=== PATIENT | male | born 1945 | race Caucasian/White ===

== ENCOUNTER 2016-05-25 17:13 | Emergency (ER) | payer MEDICARE, OTHER ==
[~2016-05-25] VITALS: Ht 172.7 cm; Wt 70.0 kg
[~2016-05-25 17:13] MED LIST: ATOR20TA17 PO; ICNCLON PO; NIFE60TA12 PO; OMEP20CA16 PO; SEVE800T7 PO; VALS160T20 PO; [UNRECOGNIZED DRUG - CODE] PO
[2016-05-25 17:24] VITALS: Ht 172.7 cm; Wt 70.0 kg
[2016-05-25] MEDS ORDERED: IBUPROFEN 800 MG TAB PO ONE (17:30)
--- NOTE | 2016-05-25 18:21 | RADRPT ---
PROCEDURE: XR Knee. CLINICAL INDICATION: Fall TECHNIQUE: Three views of the right knee are available for review. COMPARISON: None available FINDINGS: There is a partially visualized intramedullary femoral trini. There is mild narrowing of the medial fe morotibial compartment with tiny marginal osteophyte formation. The lateral and patellofemoral comp artments are maintained. Decreased bone mineral density without radiographic evidence for fracture. No evidence for joint effusion. Atherosclerotic vascular calcifications are seen per IMPRESSION: 1. Decreased bone mineral density without radiographic evidence for fracture. 2. Partially visualized distal intramedullary femoral trini. 3. Mild medial femorotibial compartment arthrosis. 4. Vascular calcifications. RPTAT: AA .Carlito Richter MD, MD Date Time Electronically viewed and signed by .Carlito Richter MD, on 05/25/2016 18:21 .d/
--- NOTE | 2016-05-25 18:24 | RADRPT ---
PROCEDURE: XR Hand. CLINICAL INDICATION: Pain TECHNIQUE: Three views of the right hand were obtained. COMPARISON: No prior studies are available for comparison. FINDINGS: A pulse oximeter obscures the second distal phalanx. The remaining osseous structures are intact. No acute osseous abnormality is identified. Bone mineral density is decreased. There is mild narro wing and marginal productive change noted at the second through fifth DIP joints. Atherosclerotic v ascular calcifications are seen. Small radiopaque foreign bodies are noted at the radial soft tissue s of the second proximal phalanx and first metacarpal. IMPRESSION: 1. Partial obscuration of the second distal phalanx. 2. Decreased bone mineral density without radiographic evidence for fracture. 3. Small radiopaque foreign bodies are noted at the radial soft tissues of the second proximal phal anx and at the first metacarpal. 4. Vascular calcifications. 5. Findings of osteoarthritis, as above. RPTAT: AA .Carlito Richter MD, Date Time Electronically viewed and signed by .Carlito Richter MD, MD on 05/25/2016 18:23 .d/
--- NOTE | 2016-05-25 18:35 | ERD ---
ER Documentation Chief Complaint Date/Time DATE: 05/25/16 TIME: 18:35 Chief Complaint BIB RA GROUND LEVEL FALL C/O RT WRIST AND RT KNEE PAIN. HPI This is a 70-year-old male who presents to the emergency room after a ground- level fall. The patient states that he was walking in his foot got stuck in a hole on the sidewalk and he fell forward. He denies hitting his head or any loss of consciousness. He does state he fell on his right hand is having pain in the right hand in the right knee. The patient any numbness or tingling in his extremities and came to the ER today for evaluation ROS All systems reviewed and are negative except as per history of present illness. Medications Home Meds Discontinued Reported Medications Valsartan* (Diovan*) 160 Mg Tablet, 160 MG PO BID 11/24/11 Nifedipine* (Nifedical XL*) 60 Mg/Bottle Tab.osm.24, 60 MG PO BID 11/24/11 Omeprazole* (Omeprazole*) 20 Mg Capsule.dr, 20 MG PO DAILY 11/24/11 Atorvastatin (Lipitor) 20 Mg Tablet, 20 MG PO HS 11/24/11 Clonidine (Clonidine (Pediatric Compound)) 0.1 Mg/Ml Susp, 0.2 MG PO QID 11/24/11 Calcium Amino Acid Chelate (Calcium Amino Acid Chelate) 200 Mg Tablet, 667 MG PO TID 11/24/11 Sevelamer Carbonate* (Renvela*) 800 Mg Tablet, 800 MG PO TID 11/24/11 Allergies Allergies: Coded Allergies: No Known Allergy (Unverified , 05/25/16) PMhx/Soc History of Surgery: Yes (PREVIOUS DIALYSIS CATH INSERTION) Anesthesia Reaction: No Hx Neurological Disorder: No Hx Respiratory Disorders: No Hx Cardiac Disorders: Yes (HTN) Hx Psychiatric Problems: No Hx Miscellaneous Medical Probl: No Hx Alcohol Use: No Hx Substance Use: No Hx Tobacco Use: No Physical Exam Vitals Vital Signs Date Time Temp Pulse Resp B/P Pulse Ox O2 Delivery O2 Flow Rate FiO2 05/25/16 17:24 98.3 90 18 190/96 100 Physical Exam Const: No acute distress Head: Atraumatic Eyes: Normal Conjunctiva ENT: Normal External Ears, Nose and Mouth. Neck: Full range of motion..~ No meningismus. Resp: Clear to auscultation bilaterally Cardio: Regular rate and rhythm, no murmurs Abd: Soft, non tender, non distended. Normal bowel sounds Skin: No petechiae or rashes Back: No midline or flank tenderness Ext: No gross deformities, cap refill less than 2 seconds, no cyanosis, or edema Neur: Awake and alert Psych: Normal Mood and Affect Results 24 hrs Current Medications Medications (Trade) Dose Ordered Sig/Yolis Route PRN Reason Start Time Stop Time Status Last Admin Dose Admin Ibuprofen (Motrin) 800 mg ONCE ONCE PO 05/25/16 17:30 05/25/16 17:31 DC 05/25/16 17:47 Procedures/MDM X-ray Knee 3V Interpreted by me: Bones: No fracture Joints: No dislocation Foreign body: None\ X-ray Hand 3V interpreted by me: Scaphoid: Normal Bones: . Decreased bone mineral density without radiographic evidence for fracture. Small radiopaque foreign bodies are noted at the radial soft tissues of the second proximal phalanx and at the first metacarpal. Joints: No dislocation Foreign body: None This 70-year-old male presents to the ER for evaluation of right hand pain and right knee pain after falling forward while walking on the sidewalk. The patient had no loss of consciousness, no head injury. He did have minor pain over the palmar aspect of his hand. The patient was placed in a Velcro wrist splint. The patient will be discharged at this time with a prescription for Motrin for breakthrough pain. He is ambulatory in the ER without difficulty, in no acute distress, alert oriented to person place and time Departure Diagnosis: Primary Impression: Contusion of right hand Additional Impressions: Contusion of right knee Fall with no significant injury Condition: Stable KEVAN DECKER DO May 25, 2016 18:35
[2016-05-25] MEDS ORDERED: CLON0.2T5 PO (18:36)
[2016-05-25] MEDS ORDERED: CARV3.12 PO (18:37)
[2016-05-25] MEDS ORDERED: IBUP-1542 PO (18:39)
[2016-05-25 19:33] VITALS: BP 182/88; PULSE 102; RESP 18
[2016-05-25] MEDS ORDERED: HYDR-906 PO (19:43)
== END 2016-05-25 21:05 | disposition home or self-care (01) ==
LOC: E/R 17:13
DX: S60.221A Contusion of right hand, initial encounter (principal); S80.01XA Contusion of right knee, initial encounter; I10 Essential (primary) hypertension; W18.09XA Striking against other object with subsequent fall, initial encounter; Y92.9 Unspecified place or not applicable
CPT/HCPCS: 73562

== ENCOUNTER 2016-06-04 05:31 | Inpatient (IN) | payer MEDICARE, OTHER ==
[~2016-06-04] VITALS: Ht 177.8 cm; Wt 77.0 kg
[2016-06-04] VITALS (17 sets, daily range): BP systolic 132–199; BP diastolic 63–95; PULSE 75–96; RESP 16–81; Ht 177.8 cm; Wt 77.0 kg
[~2016-06-04 05:31] MED LIST changes: -ATOR20TA17 PO; +CARV3.12 PO; +CLON0.2T5 PO; +HYDR-906 PO; +IBUP-1542 PO; -ICNCLON PO; -NIFE60TA12 PO; -OMEP20CA16 PO; -SEVE800T7 PO; -VALS160T20 PO; -[UNRECOGNIZED DRUG - CODE] PO
[2016-06-04 06:08] LABS: ADD SCAN DIFF NO
[2016-06-04 06:14] LABS: ABNORMAL IP MESSAGE 1; BASOPHILS % 0.3 % (0.0-2.0); EOSINOPHILS # 0.2 10^3/ul (0.0-0.5); EOSINOPHILS % 1.5 % (0.0-7.0); HEMATOCRIT 33.5 % (42.0-52.0); HEMOGLOBIN 9.9 g/dl (14.0-18.0); LYMPHOCYTES # 0.5 10^3/ul (0.8-2.9); LYMPHOCYTES % 4.1 % (15.0-51.0); MEAN CORPUSCULAR HGB CONC 29.6 g/dl (32.0-37.0); MEAN CORPUSCULAR VOLUME 98.2 fl (82.0-101.0); MEAN PLATELET VOLUME 9.3 fl (7.4-10.4); MONOCYTE # 1.2 10^3/ul (0.3-0.9); MONOCYTES % 10.1 % (0.0-11.0); NEUTROPHIL # 9.5 10^3/ul (1.6-7.5); NEUTROPHILS % 83.5 % (39.0-77.0); PLATELET COUNT 240 10^3/UL (140-415); RED BLOOD COUNT 3.41 10^6/ul (4.70-6.10); RED CELL DISTRIBUTION WIDTH 16.6 % (11.5-14.5); WHITE BLOOD COUNT 11.3 10^3/ul (4.8-10.8)
--- NOTE | 2016-06-04 06:16 | ERA ---
ER Documentation Chief Complaint Date/Time DATE: 06/04/16 TIME: 06:11 Chief Complaint billateral leg swelling/pain 12/26 x 1 day. h/o CKD HPI Patient is a 70-year-old male with end-stage renal disease who presents with 2 hours of his legs feeling wobbly. Patient states that for the last 2 weeks he has had increased swelling in his legs and has had more difficulty walking. He woke up this morning and felt like his legs were going to give out. There is no unilateral weakness, no dizziness, no shortness of breath. Patient's last dialysis was yesterday. Patient also complains of right wrist pain due to an incidental fall 2 weeks ago. States that he has had 2 x-rays that did not show fracture. ROS All systems reviewed and are negative except as per history of present illness. Medications Home Meds Active Scripts Hydrocodone/Acetaminophen ([place] 5-325 Tablet) 1 Each Tablet, 1 TAB PO Q6H Y for PAIN, #5 TAB Prov:KEVAN DECKER DO 05/25/16 Ibuprofen* (Motrin*) 600 Mg Tab, 600 MG PO Q8, #30 TAB Prov:KEVAN DECKER DO 05/25/16 Reported Medications Carvedilol* (Coreg*) 3.125 Mg Tablet, 3.125 MG PO BID, #60 TAB 05/25/16 Clonidine Hcl* (Clonidine Hcl*) 0.2 Mg Tablet, 0.4 MG PO QID, TAB 05/25/16 Allergies Allergies: Coded Allergies: No Known Allergy (Unverified , 05/25/16) PMhx/Soc Past medical history: End-stage renal disease, unknown arrhythmia Past surgical history: Appendectomy, cholecystectomy History of Surgery: Yes (PREVIOUS DIALYSIS CATH INSERTION, OPEN HEART) Anesthesia Reaction: No Hx Neurological Disorder: No Hx Respiratory Disorders: No Hx Cardiac Disorders: Yes (HTN, HIGH CHOLESTEROL) Hx Psychiatric Problems: No Hx Miscellaneous Medical Probl: Yes (ESRD ON HD) Hx Alcohol Use: No Hx Substance Use: No Hx Tobacco Use: No Smoking Status: Never smoker FmHx No personal or family history of diabetes or heart disease. Family History: No coronary disease, No diabetes Physical Exam Vitals Vital Signs Date Time Temp Pulse Resp B/P Pulse Ox O2 Delivery O2 Flow Rate FiO2 06/04/16 07:00 90 16 181/78 92 Nasal Cannula 2.0 06/04/16 05:36 98.1 93 149/83 90 Physical Exam Const: Alert, oriented, no acute distress Head: Atraumatic Eyes: Normal Conjunctiva ENT: Normal External Ears, Nose and Mouth. Neck: Full range of motion. Positive for JVD. no meningismus. Resp: Trace bibasilar rales, diminished breath sounds at right base, no wheezes or rhonchi Cardio: Regular rate and rhythm, no murmurs Abd: Soft, non tender, non distended. Normal bowel sounds Skin: No petechiae or rashes Back: No midline or flank tenderness Ext: No cyanosis, 2+ pitting edema bilateral ankles and shins, symmetric Neur: Awake and alert, cranial nerves II through XII intact bilaterally no focal weakness in 4 extremities Psych: Normal Mood and Affect Result Diagram: 06/04/1658 06/04/1658 Results 24 hrs Laboratory Tests Test 06/04/16 05:58 Anion Gap 23 B-Type Natriuretic Peptide 88310WI/ML Basophils # 0.010^3/ul Basophils % 0.3% Blood Urea Nitrogen 87mg/dl Calcium Level 8.1mg/dl Carbon Dioxide Level 31mmol/L Chloride Level 98mmol/L Creatinine 7.78mg/dl Eosinophils # 0.210^3/ul Eosinophils % 1.5% Glucose Level 136mg/dl Hematocrit 33.5% Hemoglobin 9.9g/dl Lymphocytes # 0.510^3/ul Lymphocytes % 4.1% Mean Corpuscular Hemoglobin 29.0pg Mean Corpuscular Hemoglobin Concent 29.6g/dl Mean Corpuscular Volume 98.2fl Mean Platelet Volume 9.3fl Monocytes # 1.210^3/ul Monocytes % 10.1% Neutrophils # 9.510^3/ul Neutrophils % 83.5% Nucleated Red Blood Cells # 0.010^3/ul Nucleated Red Blood Cells % 0.0/100WBC Platelet Count 98582^3/UL Potassium Level 4.7mmol/L Red Blood Count 3.4110^6/ul Red Cell Distribution Width 16.6% Sodium Level 147mmol/L Troponin I 0.101ng/ml White Blood Count 11.310^3/ul Procedures/MDM EKG: Time 613, rate 90, normal sinus rhythm with occasional PVCs, left atrial enlargement, left ventricular hypertrophy, normal axis, borderline QT interval, no ischemic ST-T wave changes. CXR: IMPRESSION: 1. Right internal jugular tunneled hemodialysis catheter the tip at the cavoatrial junction region. 2. Cardiomegaly. 3. Calcified thoracic aorta. 4. Pulmonary vascular congestion. 5. Moderate right pleural effusion with associate compressive atelectasis. MDM: Patient is a 70-year-old male with history of end-stage renal disease who presents with increased leg edema, and found to have O2 sat of 90% on room air. Patient reports going to dialysis 2 days ago, but according to his primary physician the patient has issues with confusion and missed recent dialysis. No significant dyspnea, no chest pain. Chest x-ray and BNP are suggestive of volume overload. Patient is having difficulty ambulating due to leg edema. Will admit to observation status for additional dialysis and further workup is necessary. Discussed with Dr. Kahn who will admit. Departure Diagnosis: Primary Impression: Volume overload Additional Impressions: ESRD (end stage renal disease) Pleural effusion Condition: MARLNIE Camacho Jun 04, 2016 06:15 Primary Impression: Volume overload Additional Impression: ESRD (end stage renal disease) Condition: MARLINE Camacho Jun 04, 2016 06:15
[2016-06-04 06:21] LABS: POTASSIUM 4.7 mmol/L (3.5-5.1)
[2016-06-04 06:24] LABS: CREATININE 7.78 mg/dl (0.61-1.24)
[2016-06-04 06:25] LABS: CALCIUM 8.1 mg/dl (8.4-10.2)
[2016-06-04 06:36] LABS: TROPONIN-I 0.101 ng/ml (0.00-0.12)
--- NOTE | 2016-06-04 07:48 | RADRPT ---
PROCEDURE: CHEST - 1 VIEW CLINICAL INDICATION: 70-year-old male with chest pain. TECHNIQUE: A single frontal AP portable view of the chest was performed. The images were reviewed on a PACS workstation. COMPARISON: Chest x-ray November 24, 2011. FINDINGS: There is a right internal jugular tunneled hemodialysis catheter the tip at the cavoatrial junction region. The cardiomediastinal silhouette is enlarged. The thoracic aortic arch is calcified. Ther e is mild pulmonary vascular congestion. There is moderate right pleural effusion with associate co mpressive atelectasis. There is no evidence for pneumothorax. The osseous structures are intact. IMPRESSION: 1. Right internal jugular tunneled hemodialysis catheter the tip at the cavoatrial junction region. 2. Cardiomegaly. 3. Calcified thoracic aorta. 4. Pulmonary vascular congestion. 5. Moderate right pleural effusion with associate compressive atelectasis. .Roberto Ngo MD, MD Date Time Electronically viewed and signed by .Roberto Ngo MD, MD on 06/04/2016 07:47 .M/
[2016-06-04] MEDS ORDERED: ONDANSETRON 4 MG INJ IV PRN ×2 (08:00→12:00)
[2016-06-04] MEDS ORDERED: ACETAMINOPHEN 325 MG TAB PO PRN (08:00)
[2016-06-04] MEDS ORDERED: MELA1TAB9 PO (09:43)
[2016-06-04] MEDS ORDERED: NACL 0.9% 3 ML SYG IV SCH (12:00)
[2016-06-04] MEDS ORDERED: HEPARIN 1000 UNITS/ML 10 ML INJ CATHETER ONE (12:00)
[2016-06-04] MEDS ORDERED: ZOLPIDEM 5 MG TAB PO PRN (12:00)
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
[2016-06-04] MEDS: HYDROCODONE/APAP (5/325) TAB PO PRN (17:35)
[2016-06-04] MEDS ORDERED: NON-FORMULARY/PATIENT OWN MED (Melatonin-Pyridoxine Hcl (Melatonin) 1 TAB) PO SCH (21:00)
[2016-06-05] VITALS (17 sets, daily range): BP systolic 123–174; BP diastolic 63–81; PULSE 69–83; RESP 16–18
[2016-06-05] MEDS: HYDROCODONE/APAP (5/325) TAB PO PRN ×2 (04:51→12:17)
[2016-06-05 07:30] LABS: ADD SCAN DIFF NO
[2016-06-05 07:44] LABS: ABNORMAL IP MESSAGE 1; BASOPHILS % 0.4 % (0.0-2.0); EOSINOPHILS # 0.2 10^3/ul (0.0-0.5); EOSINOPHILS % 2.9 % (0.0-7.0); HEMATOCRIT 30.8 % (42.0-52.0); LYMPHOCYTES # 0.5 10^3/ul (0.8-2.9); LYMPHOCYTES % 5.9 % (15.0-51.0); MEAN CORPUSCULAR HEMOGLOBIN 28.6 pg (29.0-33.0); MEAN CORPUSCULAR HGB CONC 29.2 g/dl (32.0-37.0); MEAN CORPUSCULAR VOLUME 97.8 fl (82.0-101.0); MEAN PLATELET VOLUME 9.8 fl (7.4-10.4); MONOCYTE # 1.2 10^3/ul (0.3-0.9); MONOCYTES % 14.3 % (0.0-11.0); NEUTROPHIL # 6.2 10^3/ul (1.6-7.5); NEUTROPHILS % 75.9 % (39.0-77.0); PLATELET COUNT 225 10^3/UL (140-415); RED BLOOD COUNT 3.15 10^6/ul (4.70-6.10); RED CELL DISTRIBUTION WIDTH 16.1 % (11.5-14.5); WHITE BLOOD COUNT 8.2 10^3/ul (4.8-10.8)
[2016-06-05 07:47] LABS: ALBUMIN 3.3 g/dl (3.3-4.9); POTASSIUM 4.3 mmol/L (3.5-5.1)
--- NOTE | 2016-06-05 07:48 | RADRPT ---
PROCEDURE: XR Chest. CLINICAL INDICATION: Shortness of breath. TECHNIQUE: Single frontal view. COMPARISON: 06/04/2016. FINDINGS: The tunneled right internal jugular vein dialysis catheter remains in position with the tip in the l ower superior vena cava. Mild pulmonary edema is unchanged. There is a moderate right pleural effu javon, larger than seen previously with worse appearance of right basilar atelectasis. There is no l eft pleural effusion. The heart is enlarged. There is calcification in the aorta consistent with atherosclerosis. There is no pneumothorax. IMPRESSION: 1. Larger right pleural effusion and worse appearance of the right lung base. 2. No other change from 06/04/2016. RPTAT: QQ .Anibal Rosado MD, MD Date Time Electronically viewed and signed by .Anibal Rosado MD, MD on 06/05/2016 07:47 .R/
[2016-06-05 07:49] LABS: CREATININE 7.16 mg/dl (0.61-1.24)
[2016-06-05 07:50] LABS: ALBUMIN/GLOBULIN RATIO 0.75; BILIRUBIN,INDIRECT 0.1 mg/dl (0-1.1); BILIRUBIN,TOTAL 0.1 mg/dl (0.2-1.3); CALCIUM 8.1 mg/dl (8.4-10.2); MAGNESIUM 1.9 mg/dl (1.7-2.5); PHOSPHORUS 7.1 mg/dl (2.5-4.9); TOTAL PROTEIN 7.7 g/dl (6.1-8.1)
[2016-06-05 08:07] LABS: T3 UPTAKE 44.7 % (23.5-40.5)
--- NOTE | 2016-06-05 11:34 | PN ---
DATE: 06/05/2016 SUBJECTIVE: The patient is stable, no acute events overnight. The patient had hemodialysis yesterd ay, tolerated well. Patient is complaining of general weakness, no other events noted. OBJECTIVE: VITAL SIGNS: Blood pressure 150/69, respiration 18, pulse 73, temperature 98.0. HEENT: Head is normocephalic. Pupils are reactive to light. NECK: Supple. HEART: Regular rate. LUNGS: Show diminished breath sounds at base, left greater than right. ABDOMEN: Soft, nontender to palpation. EXTREMITIES: Negative for clubbing, cyanosis, no edema. DERMATOLOGIC: Positive excoriations upper and lower extremities and hands. NEUROLOGIC: No focal deficits. MUSCULOSKELETAL: No joint effusions. LABORATORY DATA: Shows sodium 143, potassium 4.3, chloride 98, BUN 70, creatinine 7.16 phosphorus 7 .1. White count 8.2, hemoglobin 9.0, hematocrit 30.8, platelet count 225. IMAGING: The patient's chest x-ray was reviewed, shows right pleural effusion, larger on the right. ASSESSMENT AND PLAN: This is a 70-year-old male who presents with: 1. End-stage renal disease. The patient has been noncompliant with hemodialysis. This patient had hemodialysis yesterday, tolerated well, plan for dialysis again today for solute clearance and volu me removal. Will dialyze for 3 hours, 3K bath, calcium 2.5, and ultrafiltrate as tolerated. 2. Volume overload. The patient has noted pleural effusion and pulmonary congestion. Continue ult rafiltration with dialysis. 3. Right-sided pleural effusion, etiology is likely secondary to volume overload, end-stage renal d isease. Other possibilities include a parapneumonic effusion as also a consideration. Plan at this point is to get a pulmonary consult for evaluation to see if thoracentesis is appropriate. Will co ntinue dialysis for ultrafiltration and monitor closely. 4. Anemia of end-stage renal disease. Monitor hemoglobin and hematocrit levels. Will continue Epo gen. 5. Mineral bone disorder. Will monitor calcium and phosphorus levels. Patient's phosphorus levels are markedly elevated, will start phosphate binders, Renagel 800 mg t.i.d. with meals. 6. History of coronary artery disease. Continue medical management. 7. History of schizoaffective syndrome. Will continue to monitor. Continue current medical manage ment. 8. Hypertension. Etiology in part due to increased intravascular volume. Will continue ultrafiltr ation dialysis. Continue current blood pressure regimen. 9. Rule out scabies. The patient has noted excoriations on his upper and lower extremities. Will get a skin scraping will consider empiric treatment with Elimite. 10. History of medical noncompliance. 11. Gastrointestinal and deep vein thrombosis prophylaxis. The patient will be placed on PPI, sequ ential leg squeezers, subcutaneous heparin. Please note I spent 25 minutes of face to face time with the patient, discussing code status. The p atient is FULL CODE. Dictated By: CHELSI ASIF DO NR/NTS Conf#: [id number] DID#: [id number]
[2016-06-05] MEDS: SEVELAMER 800 MG TAB PO SCH ×2 (12:44→17:20)
--- NOTE | 2016-06-05 12:44 | CONS ---
Date/Time of Note Date/Time of Note DATE: 06/05/16 TIME: 12:38 Assessment/Plan Assessment/Plan Additional Assessment/Plan Chest x-ray was reviewed from yesterday as well as today which is showing a small right pleural effusion which is partially loculated. Assessment recommendations; 1. Patient admitted for lower extremity edema with complete interval resolution of ventricle into dialysis session with improvement in knee pain as well. 2. Likely chronic appearing right sided pleural changes. 3. End-stage renal disease on hemodialysis. 4. Patient from a respiratory standpoint is completely asymptomatic Continue current treatment. At this time I would not recommend any intervention regarding the small right pleural effusion. Consultation Date/Type/Reason Admit Date/Time Jun 04, 2016 at 07:40 Date of Consultation: Jun 05, 2016 Type of Consultation: Pulmonary Reason for Consultation Pulmonary consultation obtained for evaluation of possible right pleural effusion. Next History presenting any; patient is a 70-year-old white male who came into the hospital yesterday with complaints of bilateral knee pain as well as lower extremity swelling. After undergoing 2 dialysis sessions there is complete resolution of edema. Patient's knee pain also has improved significantly patient denies any shortness of breath, any chest pain. Any fever, chills. By the time I saw him patient is completely awake alert getting hemodialysis at bedside and also eating his lunch. Past medical history; 1. End-stage renal disease, on hemodialysis for the last 7 years. 2. History of right pleural effusion, according to him no thoracentesis was ever done. 3. History of hypertension. Next 4. History of hyperlipidemia. 5. Patient denies any history of any surgeries, any coronary artery disease. Medications; were reviewed. Next Allergies; are none. Social history; patient has remote history of smoking. He quit 30 years ago. Most of alcohol or drug abuse. Family history; he has 1 son, patient is single. 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 General exam; elderly male, currently in no distress awake and alert. Social History Smoking Status: Never smoker Exam/Review of Systems Vital Signs Vitals Vital Signs Date Time Temp Pulse Resp B/P Pulse Ox O2 Delivery O2 Flow Rate FiO2 06/05/16 12:00 74 06/05/16 10:40 17 06/05/16 07:39 98.0 150/69 95 06/04/16 17:11 Room Air 06/04/16 07:00 2.0 Intake and Output 06/04/16 06/04/16 06/05/16 15:00 23:00 07:00 Intake Total 1020 ml 120 ml Output Total 3500 ml Balance -2480 ml 120 ml Exam HEENT exam is; supple neck, no JVD. No lymphadenopathy. Midline trachea. No thyromegaly. Patient is edentulous and wears dentures. Pupils are midsize and reactive to light. Extraocular movements are intact. No thyromegaly. Chest examination; clear to auscultation with very minimal if any decreased breath on the right lower lobe. S1-S2 audible, no murmurs. Regular rhythm. There is a hemodialysis catheter in the right subclavian area. Abdomen examination; soft, nontender. No organomegaly. Bowel sounds audible. Extremity examination of Nick no peripheral edema. HOSPICE PATIENT CARE SECRETARY examination; cranial nerves are intact, no focal deficit. Results Result Diagram: 06/05/16 0603 06/05/16 0603 Results 24 hrs Laboratory Tests Test 06/05/16 06:03 Alanine Aminotransferase (ALT/SGPT) 26 Albumin 3.3 Albumin/Globulin Ratio 0.75 Alkaline Phosphatase 149 H Anion Gap 21 H Aspartate Amino Transf (AST/SGOT) 32 Basophils # 0.0 Basophils % 0.4 Blood Urea Nitrogen 70 H Calcium Level 8.1 L Carbon Dioxide Level 28 Chloride Level 98 Creatinine 7.16 H Direct Bilirubin 0.00 Eosinophils # 0.2 Eosinophils % 2.9 Free Thyroxine Index 2.68 Globulin 4.40 H Glucose Level 85 # Hematocrit 30.8 L Hemoglobin 9.0 L Indirect Bilirubin 0.1 Lymphocytes # 0.5 L Lymphocytes % 5.9 L Magnesium Level 1.9 Mean Corpuscular Hemoglobin 28.6 L Mean Corpuscular Hemoglobin Concent 29.2 L Mean Corpuscular Volume 97.8 Mean Platelet Volume 9.8 Monocytes # 1.2 H Monocytes % 14.3 H Neutrophils # 6.2 Neutrophils % 75.9 Nucleated Red Blood Cells # 0.0 Nucleated Red Blood Cells % 0.0 Phosphorus Level 7.1 H Platelet Count 225 Potassium Level 4.3 Red Blood Count 3.15 L Red Cell Distribution Width 16.1 H Sodium Level 143 Thyroxine (T4) 6.0 Total Bilirubin 0.1 L Total Protein 7.7 Triiodothyronine (T3) Uptake 44.7 H White Blood Count 8.2 # Medications Medications Current Medications Ondansetron HCl (Zofran Inj) 4 mg Q6H PRN IV NAUSEA AND/OR VOMITING; Start at 12:00 Zolpidem Tartrate (Ambien) 5 mg QHS PRN PO SLEEP; Start 06/04/16 at 12:00 Carvedilol (Coreg) 3.125 mg BID PO Last administered on 06/04/16 20:56; Admin Dose 3.125 MG; Start 06/04/16 at 21:00 Clonidine (Catapres) 0.4 mg QID PO Last administered on 06/04/16 20:56; Admin Dose 0.4 MG; Start 06/04/16 at 13:00 Acetaminophen/ Hydrocodone Bitart ([place] (5/325)) 1 tab Q6H PRN PO PAIN Last administered on 06/05/16 12:17; Admin Dose 1 TAB; Start 06/04/16 at 12:00 Pantoprazole (Protonix Tab) 40 mg DAILY@06 PO ; Start 06/06/16 at 06:00 LUIS LAWS 20, 2017 12:44
[2016-06-05] MEDS ORDERED: HEPARIN 1000 UNITS/ML 10 ML INJ CATHETER SCH (13:30)
[2016-06-05] MEDS: EPOETIN 10000 UNITS/1 ML INJ (ESRD) SC SCH (17:24)
--- NOTE | 2016-06-05 18:10 | RADRPT ---
Echocardiogram Report Patient Name: PEPPER SO Gender: Male Date: 1945 Study Date: 04-Jun-2016 Supervisor Of Operations: NICOL Location: I Height(Cm): 178 Weight(Kg): 77 BSA: 1.95 Ref. Physician: SARTHAK PATEL Quality: Adequate Procedures: Transthoracic echocardiogram with complete 2D, M-Mode, and Doppler examination. Indications: Congestive Heart Failure. 2D/M Mode Doppler Measurement Value Normal Ranges Measurement Value Normal Ranges AoR Diam MM 3.8 cm JAMES Vmax 1.1 cm2 LVIDd 2D 5.3 3.5 - 5.6 cm JAMES VTI 1.1 cm2 LVIDs 2D 3.9 2.1 - 4.1 cm AV Mean Jose 2.0 m/sec LVPWd 2D 1.5 0.6 - 1.1 cm AV Mean PG 19.3 mmHg IVSd 2D 1.6 0.6 - 1.1 cm AV Peak Jose 3.0 m/sec EDV 2D 136.3 cm3 AV Peak PG 36.5 mmHg ESV 2D 58.2 cm3 AV VTI 55.3 cm LA Dimen 2D 4.2 2.3 - 4.0 cm AI Peak PG 79.4 mmHg LVOT Diam 2.0 cm AI Peak Jose 4.5 m/sec AI PHT 456.6 msec LVOT Mean Jose 0.7 m/sec LVOT Mean PG 2.1 mmHg LVOT Peak Jose 1.0 m/sec LVOT Peak PG 4.1 mmHg LVOT VTI 19.6 cm MV E Peak Jose 1.2 m/sec MV A Peak Jose 0.7 m/sec MV E/A 1.7 MV Decel Time 162 msec MV Decel [place] 7 MV E/A 1.7 TR Peak Jose 3.6 m/sec TR Peak PG 52.6 mmHg PV Peak Jose 1.1 m/sec PV Peak PG 5.0 mmHg RVSP 72.6 mmHg Findings Left Ventricle: Normal left ventricular cavity size. Mild to moderate concentric left ventricular hypertrophy. Moderate left ventricular systolic dysfunction. Ejection fraction is visually estimated at 45 %. Tissue Doppler/Mitral Doppler indices are consistent with pseudonormalization with mildly elevated left atrial pressure (Stage II diastolic dysfunction). E/E`=12. Right Ventricle: Normal right ventricular size. Left Atrium: There is severe enlargement of left atrium, appreciated best by LA volume index. LA Volume Index=51. Right Atrium: There is moderate enlargement of right atrium. Atrial Septum: Normal atrial septum. Mitral Valve: Mitral valve leaflets appear mildly thickened. Mild mitral annular calcification. Mild mitral valve regurgitation. Aortic Valve: Moderate aortic stenosis. Aortic valve Max velocity 3.00 m/sec. Max PG 37.00 mmHg. Mean PG 19.00 mmHg. Aortic valve area 1.20 cm2. Aortic cusps appear moderately calcified. Mild to moderate aortic valve regurgitation. Tricuspid Valve: Normal appearance of the tricuspid valve. Estimated peak PA systolic pressure 73 mmHg. There is mild to moderate tricuspid regurgitation. Pulmonic Valve: Normal pulmonic valve appearance. No evidence of pulmonic regurgitation. Pericardium: Normal pericardium with no significant pericardial effusion. Right pleural effusion seen. Aorta: Normal aortic root. IVC: Dilated IVC without respiratory collapse consistent with elevated right atrial pressure. Pulmonary Artery: Normal pulmonary artery size. Conclusions 1.Normal left ventricular cavity size. Mild to moderate concentric left ventricular hypertrophy. Moderate left ventricular systolic dysfunction. Ejection fraction is visually estimated at 45 %. Tissue Doppler/Mitral Doppler indices are consistent with pseudonormalization with mildly elevated left atrial pressure (Stage II diastolic dysfunction). E/E`=12. 2.There is severe enlargement of left atrium, appreciated best by LA volume index. LA Volume Index=51. 3.There is moderate enlargement of right atrium. 4.Mitral valve leaflets appear mildly thickened. Mild mitral annular calcification. Mild mitral valve regurgitation. 5.Moderate aortic stenosis. Aortic valve Max velocity 3.00 m/sec. Max PG 37.00 mmHg. Mean PG 19.00 mmHg. Aortic valve area 1.20 cm2. Aortic cusps appear moderately calcified. Mild to moderate aortic valve regurgitation. 6.Normal appearance of the tricuspid valve. Estimated peak PA systolic pressure 73 mmHg. There is mild to moderate tricuspid regurgitation. 7.Dilated IVC without respiratory collapse consistent with elevated right atrial pressure. Electronically Signed By: Leonel Munoz 05-Jun-2016 18:09:07 -0700 Patient Name: PEPPER SO Study Date: 04-Jun-2016 [id number]
[2016-06-06] VITALS (19 sets, daily range): BP systolic 102–165; BP diastolic 47–71; PULSE 63–75; RESP 16–20
[2016-06-06] MEDS: HYDROCODONE/APAP (5/325) TAB PO PRN ×2 (04:39→20:35)
[2016-06-06] MEDS: PANTOPRAZOLE (EC) 40 MG TAB PO SCH (04:39)
[2016-06-06 07:32] LABS: ADD SCAN DIFF NO
[2016-06-06 07:54] LABS: ABNORMAL IP MESSAGE 1; BASOPHILS % 0.4 % (0.0-2.0); EOSINOPHILS # 0.3 10^3/ul (0.0-0.5); EOSINOPHILS % 3.1 % (0.0-7.0); HEMOGLOBIN 9.3 g/dl (14.0-18.0); LYMPHOCYTES # 0.6 10^3/ul (0.8-2.9); LYMPHOCYTES % 5.5 % (15.0-51.0); MEAN CORPUSCULAR VOLUME 96.6 fl (82.0-101.0); MEAN PLATELET VOLUME 9.5 fl (7.4-10.4); MONOCYTE # 1.5 10^3/ul (0.3-0.9); MONOCYTES % 14.1 % (0.0-11.0); NEUTROPHIL # 7.9 10^3/ul (1.6-7.5); NEUTROPHILS % 76.4 % (39.0-77.0); PLATELET COUNT 242 10^3/UL (140-415); RED BLOOD COUNT 3.21 10^6/ul (4.70-6.10); RED CELL DISTRIBUTION WIDTH 15.5 % (11.5-14.5); WHITE BLOOD COUNT 10.4 10^3/ul (4.8-10.8)
[2016-06-06 07:55] LABS: POTASSIUM 4.2 mmol/L (3.5-5.1)
[2016-06-06 07:58] LABS: CREATININE 6.5 mg/dl (0.61-1.24)
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
[2016-06-06 07:59] LABS: CALCIUM 8.1 mg/dl (8.4-10.2); MAGNESIUM 2.1 mg/dl (1.7-2.5); PHOSPHORUS 7.7 mg/dl (2.5-4.9)
[2016-06-06] MEDS: SEVELAMER 800 MG TAB PO SCH ×3 (08:25→17:45)
--- NOTE | 2016-06-06 09:41 | PN ---
DATE: 06/06/2016 SUBJECTIVE: The patient is complaining of some right elbow pain, forearm pain which she describes a s having fracture approximately 1 month ago. The patient had hemodialysis yesterday, tolerated well . The patient is in no acute distress. No longer complaining of shortness of breath. No other lizzie nts noted. OBJECTIVE: VITAL SIGNS: Blood pressure is 165/71, respiration 18, pulse 67, temperature 98.0. HEENT: Head is normocephalic. NECK: Supple. HEART: Regular rate. LUNGS: Show diminished breath sounds at base. ABDOMEN: Soft, nontender to palpation, no rebound or guarding. EXTREMITIES: Negative for clubbing, cyanosis. No edema. DERMATOLOGIC: Noted excoriations. No change. NEUROLOGIC: No change in exam. MEDICATIONS: The patient's medications have been reviewed. LABORATORY DATA: Has been reviewed. No new labs. ASSESSMENT AND PLAN: 1. End-stage renal disease. The patient is on dialysis Sunday, , Sunday. Plan for hemo dialysis today for 3 hours, 3K bath, calcium 2.5, ultrafiltrate as tolerated. 2. Volume overload. The patient was noted to have pleural effusion and pulmonary congestion. We w ill continue hemodialysis. Continue ultrafiltration. 3. Right-sided pleural effusion, etiology is likely secondary to congestive heart failure. 4. End-stage renal disease. At this point, will continue hemodialysis. Appreciate pulmonary's eval uation and plan for thoracentesis at this time. Will continue dialysis. 5. Anemia of end-stage renal disease. Monitor H and H levels. Continue Epogen. 6. Right forearm pain with questionable recent history of fracture. Will check an x-ray of the rig forearm monitor, continue pain control. 7. Mineral bone disorder. Continue to monitor calcium and phosphorus levels. Continue phosphate b inders. 8. History of coronary artery disease. Continue medical management. 9. History of schizoaffective syndrome. Continue to monitor. 10. Hypertension. Continue current blood pressure regimen. Continue ultrafiltration dialysis. 11. Lower extremities excoriations. Will continue to monitor. Per patient, he was recently evalua alix for scabies and was negative. Continue to monitor. 12. History of medical noncompliance. 13. Gastrointestinal and deep venous thrombosis prophylaxis. Continue PPIs and sequential leg sque ezers. 14. General debility. Continue PT, OT. Dictated By: CHELSI AGGARWAL/ED Conf#: [id number] DID#: [id number]
--- NOTE | 2016-06-06 09:41 | RADRPT ---
PROCEDURE: XR Right Forearm. CLINICAL INDICATION: Trauma. Right forearm pain. TECHNIQUE: AP and lateral views of the right forearm were obtained. COMPARISON: No prior studies are available for comparison. FINDINGS: There is no fracture or dislocation. Vascular calcifications are present consistent with atherosclerosis. Articular surfaces are intact. There is no lytic or blastic lesion. Surgical clips are present in the antecubital fossa region. IMPRESSION: 1. Atherosclerosis. 2. Surgical clips in the antecubital fossa region. 3. Otherwise unremarkable images of the right forearm. RPTAT: QQ .Anibal Rosado MD, MD Date Time Electronically viewed and signed by .Anibal Rosado MD, on 06/06/2016 09:40 .R/
[2016-06-06] MEDS ORDERED: MELATONIN 10 MG PO PRN (23:30)
[2016-06-07] VITALS (13 sets, daily range): BP systolic 122–152; BP diastolic 61–91; PULSE 63–75; RESP 16–20
[2016-06-07] MEDS: PANTOPRAZOLE (EC) 40 MG TAB PO SCH (05:28)
[2016-06-07] MEDS: HYDROCODONE/APAP (5/325) TAB PO PRN ×4 (05:29→21:11)
[2016-06-07 07:26] LABS: ADD SCAN DIFF NO
[2016-06-07 07:34] LABS: BASOPHIL # 0.1 10^3/ul (0.0-0.1); BASOPHILS % 0.5 % (0.0-2.0); EOSINOPHILS # 0.3 10^3/ul (0.0-0.5); EOSINOPHILS % 3.4 % (0.0-7.0); HEMATOCRIT 33.8 % (42.0-52.0); LYMPHOCYTES # 0.7 10^3/ul (0.8-2.9); LYMPHOCYTES % 6.8 % (15.0-51.0); MEAN CORPUSCULAR HEMOGLOBIN 28.6 pg (29.0-33.0); MEAN CORPUSCULAR HGB CONC 29.6 g/dl (32.0-37.0); MEAN CORPUSCULAR VOLUME 96.6 fl (82.0-101.0); MONOCYTE # 1.5 10^3/ul (0.3-0.9); MONOCYTES % 15.2 % (0.0-11.0); NEUTROPHIL # 7.1 10^3/ul (1.6-7.5); NEUTROPHILS % 73.4 % (39.0-77.0); PLATELET COUNT 249 10^3/UL (140-415); RED CELL DISTRIBUTION WIDTH 15.3 % (11.5-14.5); WHITE BLOOD COUNT 9.7 10^3/ul (4.8-10.8)
--- NOTE | 2016-06-07 07:40 | PN ---
DATE: 06/06/2016 CARDIOLOGY FOLLOWUP SUBJECTIVE: The patient ____ no chest pain or pressure. Complains of feeling horrible because he h as some ankle pain and knee pain. No chest pain or pressure, no shortness of breath. MEDICATIONS: Reviewed. PHYSICAL EXAMINATION: VITAL SIGNS: Temperature 98.1, heart rate of 68, blood pressure 125/____, respiration rate of 20, s aturating 96%. HEENT: Normocephalic, atraumatic. Pupils are equal. CARDIOVASCULAR: Regular rate and rhythm. PULMONARY: With no wheezes heard. Minimal rhonchi at the base. GASTROINTESTINAL: Soft, ____. EXTREMITIES: ____ edema. NEUROLOGIC: He is awake and alert, oriented x3. PSYCHIATRIC: Appears to be anxious with labile mood. LABORATORY: WBC of 10.4, hemoglobin 9.____, platelets 242. Sodium 141, potassium 4.2, BUN of ____, creatinine 36.5, glucose of 87. ASSESSMENT AND PLAN: 1. Congestive heart failure/fluid overload. 2. Renal failure, on hemodialysis. 3. Pleural effusion. 4. History of pulmonary hypertension. 5. Possible history of coronary artery disease. 6. ____ affective disorder. 7. Hypertension. RECOMMENDATIONS: Dialysis will be continued and managed as per renal. Continue with the Coreg at t he current dose. I would decrease the clonidine dose. Monitor on telemetry. Dictated By: SHABNAM MENG/ED Conf#: [id number] DID#: [id number] CC: CHELSI ASIF DO;*EndCC*
[2016-06-07 07:46] LABS: POTASSIUM 4.4 mmol/L (3.5-5.1)
[2016-06-07 07:49] LABS: CREATININE 6.81 mg/dl (0.61-1.24)
[2016-06-07 07:50] LABS: CALCIUM 8.6 mg/dl (8.4-10.2); MAGNESIUM 2.1 mg/dl (1.7-2.5); PHOSPHORUS 7.5 mg/dl (2.5-4.9)
--- NOTE | 2016-06-07 08:15 | RADRPT ---
Vent Rate: 73 bpm RR Interval: 0 msec MO Interval: 138 msec QRS Duration: 112 msec QT Interval: 450 msec QTC Interval: 495 msec P-R-T [place]: 32 - 3 - 71 degrees Sinus rhythm with occasional premature ventricular complexes Minimal voltage criteria for LVH, may be normal variant Prolonged QT Abnormal ECG Electronically Signed By: Arcadio Bryant [id number]
[2016-06-07] MEDS: SEVELAMER 800 MG TAB PO SCH ×3 (08:35→17:49)
--- NOTE | 2016-06-07 10:50 | PN ---
DATE: 06/07/2016 CARDIOLOGY FOLLOWUP SUBJECTIVE: The patient with no chest pain or pressure. No palpitation. No shortness of breath to me. He does complain of feeling horrible because he has right wrist pain. MEDICATIONS: Reviewed as per medication reconciliation, personally reviewed. PHYSICAL EXAMINATION: VITAL SIGNS: Temperature 97.8, heart rate of 63, blood pressure 122/63, respiratory rate of 20, sat urating 96%. HEENT: Normocephalic, atraumatic. Pupils equal and round. CARDIOVASCULAR: Regular rate and rhythm, systolic murmur. PULMONARY: With no wheezes or rhonchi. GASTROINTESTINAL: Soft, nontender. No rebound or guarding. EXTREMITIES: No significant lower extremity edema. Right wrist with edema and tenderness to palpat ion: PSYCHIATRIC: Appears to be anxious, but stable. NEUROLOGIC: Awake and alert x3. LABORATORY DATA: WBC of 9.7, hemoglobin 10, platelets 249. Sodium 142, potassium 4.4, BUN 62, crea tinine 6.8, glucose of 95. Forearm x-ray showed surgical clips in the AC fossa region, otherwise unremarkable images of the rig ht forearm. ASSESSMENT AND PLAN: 1. Congestive heart failure secondary to fluid overload, currently improved. 2. Renal failure on dialysis. 3. Pleural effusion secondary to above. 4. History of pulmonary hypertension. 5. Questionable history of coronary artery disease. 6. Schizoaffective disorder. 7. History of hypertension, currently under control. RECOMMENDATIONS: Dialysis as per renal to be continued. Coreg will be continued at the current dos e. GI prophylaxis will be continued. Dictated By: SHABNAM MENG/ED Conf#: [id number] DID#: [id number] CC: CHELSI ASIF DO;*EndCC*
--- NOTE | 2016-06-07 11:17 | PN ---
DATE: 06/07/2016 SUBJECTIVE: The patient is complaining about some pain in his upper extremities x-ray of his forear m was obtained yesterday which showed no acute fracture. The patient's shortness of breath is impro ving. No other acute events noted. No hemoptysis, hematemesis or hematochezia. OBJECTIVE: VITAL SIGNS: Blood pressure is 122/63, respirations 20, pulse 61, temperature 97.8. HEENT: Head is normocephalic. NECK: Supple. HEART: Regular rate. LUNGS: Show diminished breath sounds at the base, right greater than left. ABDOMEN: Soft, nontender to palpation without rebound or guarding. EXTREMITIES: Negative for clubbing, cyanosis, no edema. DERMATOLOGIC: No rashes. MUSCULOSKELETAL: No joint effusions. NEUROLOGIC: No change in exam. MEDICATIONS: The patient's medications have been reviewed. LABORATORY DATA: Shows a sodium 142, potassium 4.4, chloride 97, BUN 62, creatinine 6.81. White co unt 9.7, hemoglobin 10.0, hematocrit 32.8, platelet count is 249. X-ray of the right forearm is unremarkable. ASSESSMENT AND PLAN: 1. End-stage renal disease. The patient is on dialysis Sunday, , Sunday. The patient h as had dialysis for 3 days in a row for volume removal solute clearance. Anticipate dialysis again tomorrow for 3 hours, 2K bath, calcium 2.5. 2. Volume overload. The patient was noted to have pleural effusion, pulmonary congestion. The pat ient is clinically improving. We will repeat a chest x-ray. Continue ultrafiltration dialysis. 3. Right-sided pleural effusion likely secondary to congestive heart failure. Will continue to mon itor. No plans for thoracentesis at this time. 4. Anemia of end-stage renal disease. Continue to monitor hemoglobin and hematocrit levels. Isacc nue Epogen. 5. Right forearm pain. The patient is status post x-ray that shows no evidence of fracture. Etiol ogy is likely due to recent contusion. Continue to monitor, continue pain control. 6. Mineral bone disorder. Continue to monitor calcium and phosphorus levels. Continue phosphate bin ders. 7. History of coronary artery disease. Continue current medical management. 8. Hypertension. Continue current blood pressure regimen. Continue ultrafiltration dialysis. 9. Lower extremity excoriation. Continue wound care. 10. General debility. Continue PT, OT. 11. History of Schizoaffective disorder. Continue to monitor. 12. History of medical noncompliance. 13. Gastrointestinal and deep venous thrombosis prophylaxis. Continue proton pump inhibitor, seque ntial leg squeezers. Dictated By: CHELSI AGGARWAL/ED Conf#: [id number] DID#: [id number]
[2016-06-08] VITALS (18 sets, daily range): BP systolic 113–160; BP diastolic 56–73; PULSE 60–76; RESP 17–18
[2016-06-08] MEDS: HYDROCODONE/APAP (5/325) TAB PO PRN ×3 (03:03→22:03)
[2016-06-08] MEDS: PANTOPRAZOLE (EC) 40 MG TAB PO SCH (05:47)
[2016-06-08 06:55] LABS: ADD SCAN DIFF NO
[2016-06-08 06:59] LABS: BASOPHILS % 0.3 % (0.0-2.0); EOSINOPHILS # 0.3 10^3/ul (0.0-0.5); HEMATOCRIT 30.7 % (42.0-52.0); HEMOGLOBIN 9.3 g/dl (14.0-18.0); LYMPHOCYTES # 0.8 10^3/ul (0.8-2.9); LYMPHOCYTES % 8.8 % (15.0-51.0); MEAN CORPUSCULAR HGB CONC 30.3 g/dl (32.0-37.0); MEAN CORPUSCULAR VOLUME 95.6 fl (82.0-101.0); MEAN PLATELET VOLUME 9.1 fl (7.4-10.4); MONOCYTE # 1.3 10^3/ul (0.3-0.9); MONOCYTES % 14.8 % (0.0-11.0); NEUTROPHIL # 6.1 10^3/ul (1.6-7.5); NEUTROPHILS % 71.3 % (39.0-77.0); PLATELET COUNT 228 10^3/UL (140-415); RED BLOOD COUNT 3.21 10^6/ul (4.70-6.10); RED CELL DISTRIBUTION WIDTH 14.9 % (11.5-14.5); WHITE BLOOD COUNT 8.6 10^3/ul (4.8-10.8)
[2016-06-08 07:14] LABS: POTASSIUM 5.2 mmol/L (3.5-5.1)
[2016-06-08 07:16] LABS: CREATININE 8.92 mg/dl (0.61-1.24)
[2016-06-08 07:17] LABS: CALCIUM 8.3 mg/dl (8.4-10.2); MAGNESIUM 2.3 mg/dl (1.7-2.5); PHOSPHORUS 9.6 mg/dl (2.5-4.9)
[2016-06-08] MEDS: SEVELAMER 800 MG TAB PO SCH ×3 (08:54→17:39)
--- NOTE | 2016-06-08 10:56 | PN ---
DATE: 06/08/2016 SUBJECTIVE: The patient yesterday, was treated with Elimite prophylactically. No other acute event s noted. No hemoptysis, hematemesis or hematochezia. OBJECTIVE: VITAL SIGNS: Blood pressure 116/73, respiration 17, pulse 67, temperature 97.8. HEENT: Head is normocephalic. NECK: Supple. HEART: Regular rate. LUNGS: Show diminished breath sounds at base. ABDOMEN: Soft, nontender to palpation without rebound or guarding. EXTREMITIES: Negative for clubbing, cyanosis. No edema. DERMATOLOGIC: No rashes. The patient has excoriations, no change. MUSCULOSKELETAL: No joint effusions. LABORATORY DATA: Shows a white count 8.6, hemoglobin 9.3, hematocrit 30.7, platelet count is 228. Sodium 140, potassium 5.2, chloride 95, BUN 91, creatinine 8.92, phosphorus is 9.6. ASSESSMENT AND PLAN: 1. End-stage renal disease. The patient is scheduled for hemodialysis today for 3 hours, 3K bath, calcium 2.5. Will ultrafiltrate as tolerated. 2. Volume overload. The patient has pleural effusion and pulmonary congestion. The patient clinic ally improving. Continue ultrafiltration with dialysis. Will repeat a chest x-ray. 3. Right side pleural effusion, likely secondary to congestive heart failure. Will continue to mon itor. 4. History of end-stage renal disease. Continue to monitor H and H levels. Continue Epogen. 5. History of right forearm fracture. The patient's x-ray showed no further evidence of fracture. Will repeat x-rays of both right and left forearm per patient's request and will monitor closely. 6. Mineral bone disorder. Continue to monitor calcium and phosphorus levels. Continue phosphate b inders. 7. History of coronary artery disease. Continue medical management. 8. Hypertension. We will continue current blood pressure regimen. Will start Norvasc 5 mg daily. Continue Coreg. 9. Lower extremity excoriations. The patient is pending a skin scraping although suspicion is low for scabies. The patient is status post permethrin cream. 10. General debility. Continue PT, OT. 11. History of schizoaffective disorder. Continue to monitor. 12. History of medical noncompliance. 13. Gastrointestinal and deep venous thrombosis prophylaxis. Continue proton pump inhibitor and se quential leg squeezers. DISPOSITION: Will place a request for acute rehab evaluation. Dictated By: CHELSI AGGARWAL/ED Conf#: [id number] DID#: [id number]
--- NOTE | 2016-06-08 11:16 | PN ---
DATE: 06/08/2016 CARDIOLOGY FOLLOWUP SUBJECTIVE: The patient with no cardiac complaints. However, multiple complaints including the edu d is not being warm enough. No chest pain or pressure. No palpitation, no shortness of breath. Rh ythm strip was reviewed. Remains in sinus rhythm. MEDICATIONS: Reviewed as per medication reconciliation, personally reviewed. PHYSICAL EXAMINATION: VITAL SIGNS: Temperature 97.8, heart rate of 77, blood pressure 160/73, respiration is 20, saturati ng 96%. HEENT: Normocephalic, atraumatic. Thin gentleman in no acute distress. Pupils are equal. CARDIOVASCULAR: Regular rate and rhythm, systolic murmur. PULMONARY: With no wheezes or rhonchi. GASTROINTESTINAL: Soft, nontender. EXTREMITIES: No significant edema. NEUROLOGIC: Awake and alert. PSYCHIATRIC: Appears to angry and anxious, otherwise stable. LABORATORY: WBC of 8.6, hemoglobin 9.3, platelets 228. Sodium 140, potassium 5.2, BUN of 91, creat inine of 8.92, glucose of 89. ASSESSMENT AND PLAN: 1. Congestive heart failure/fluid overload. 2. Renal failure on dialysis. 3. Pleural effusion secondary to above. 4. Pulmonary hypertension secondary to above. 5. Questionable history of coronary artery disease. 6. History of schizoaffective disorder. 7. Hypertension, under better control. RECOMMENDATIONS: Continue with dialysis to be managed as per Dr. Tay and associates. Continue with the current blood pressure medications. Coreg will be continued. Clonidine will be continued as well. Dictated By: SHABNAM MENG/ED Conf#: [id number] DID#: [id number] CC: CHELSI TAY DO;*EndCC*
[2016-06-08] MEDS: AMLODIPINE 5 MG TAB PO SCH (12:39)
--- NOTE | 2016-06-08 17:58 | RADRPT ---
PROCEDURE: XR Left Forearm. CLINICAL INDICATION: Trauma. Left forearm pain. TECHNIQUE: AP and lateral views of the left forearm were obtained. COMPARISON: No prior studies are available for comparison. FINDINGS: There is no fracture or dislocation. Vascular calcifications are present consistent with atherosclerosis. Articular surfaces are intact. There is no lytic or blastic lesion. An intravenous catheter is noted anteriorly. IMPRESSION: 1. Atherosclerosis. 2. IV catheter anteriorly. 3. No fracture or dislocation. RPTAT: QQ .Anibal Rosado MD, Date Time Electronically viewed and signed by .Anibal Rosado MD, on 06/08/2016 17:58 .R/
[2016-06-08] MEDS ORDERED: PERMETHRIN 5% 60 GM CR TOP ONE (18:00)
--- NOTE | 2016-06-08 18:23 | RADRPT ---
PROCEDURE: XR Right Forearm. CLINICAL INDICATION: Trauma. Right forearm pain. TECHNIQUE: AP and lateral views of the right forearm were obtained. COMPARISON: 06/06/2016. FINDINGS: There is an acute nondisplaced fracture of the ulnar styloid. There is no other fracture and there is no dislocation. Vascular calcifications are present consistent with atherosclerosis. The articular surfaces are otherwise intact. There is no lytic or blastic lesion. Multiple surgical clips are noted adjacent to the elbow. IMPRESSION: 1. Acute nondisplaced fracture of the ulnar styloid. This was probably present on the prior study b ut is seen to better advantage on the current radiograph. 2. Atherosclerosis. 3. Surgical clips adjacent to the elbow. RPTAT: QQ .Anibal Rosado MD, MD Date Time Electronically viewed and signed by .Anibal Rosado MD, on 06/08/2016 18:22 .R/
--- NOTE | 2016-06-08 22:30 | RADRPT ---
PROCEDURE: XR Chest. CLINICAL INDICATION: Shortness of breath. TECHNIQUE: Single frontal view. COMPARISON: 06/05/2016. FINDINGS: A tunneled right internal jugular vein dialysis catheter remains in satisfactory position with the t ip in the lower superior vena cava. Mild pulmonary edema is improved. There is moderate right pleu ral effusion, also improved. Right basilar atelectasis is improved. The lungs are otherwise clear. There is no left pleural effusion. The heart is enlarged. Calcification is present in the aorta consistent with atherosclerosis. There is no pneumothorax. IMPRESSION: 1. Smaller right pleural effusion and improved appearance of the right lung. 2. Improved pulmonary edema. 3. No other change from 06/05/2016. RPTAT: QQ .Anibal Rosado MD, MD Date Time Electronically viewed and signed by .Anibal Rosado MD, MD on 06/08/2016 22:29 .R/
[2016-06-09] VITALS (19 sets, daily range): BP systolic 104–154; BP diastolic 54–71; PULSE 64–77; RESP 16–19
[2016-06-09] MEDS: HYDROCODONE/APAP (5/325) TAB PO PRN ×2 (03:12→22:27)
[2016-06-09 05:29] LABS: ADD SCAN DIFF NO
[2016-06-09 05:49] LABS: POTASSIUM 5.2 mmol/L (3.5-5.1)
[2016-06-09 05:51] LABS: CREATININE 8.12 mg/dl (0.61-1.24)
[2016-06-09 05:52] LABS: BASOPHILS % 0.3 % (0.0-2.0); CALCIUM 8.7 mg/dl (8.4-10.2); EOSINOPHILS # 0.3 10^3/ul (0.0-0.5); EOSINOPHILS % 2.7 % (0.0-7.0); HEMATOCRIT 34.1 % (42.0-52.0); HEMOGLOBIN 10.1 g/dl (14.0-18.0); LYMPHOCYTES # 0.8 10^3/ul (0.8-2.9); LYMPHOCYTES % 7.6 % (15.0-51.0); MEAN CORPUSCULAR HEMOGLOBIN 28.8 pg (29.0-33.0); MEAN CORPUSCULAR HGB CONC 29.6 g/dl (32.0-37.0); MEAN CORPUSCULAR VOLUME 97.2 fl (82.0-101.0); MEAN PLATELET VOLUME 9.2 fl (7.4-10.4); MONOCYTE # 1.4 10^3/ul (0.3-0.9); MONOCYTES % 13.3 % (0.0-11.0); NEUTROPHIL # 7.8 10^3/ul (1.6-7.5); NEUTROPHILS % 75.2 % (39.0-77.0); PHOSPHORUS 7.9 mg/dl (2.5-4.9); PLATELET COUNT 270 10^3/UL (140-415); RED BLOOD COUNT 3.51 10^6/ul (4.70-6.10); RED CELL DISTRIBUTION WIDTH 14.9 % (11.5-14.5); WHITE BLOOD COUNT 10.4 10^3/ul (4.8-10.8)
[2016-06-09 05:53] LABS: MAGNESIUM 2.3 mg/dl (1.7-2.5)
[2016-06-09] MEDS: SEVELAMER 800 MG TAB PO SCH ×3 (08:38→17:39)
[2016-06-09] MEDS: PANTOPRAZOLE (EC) 40 MG TAB PO SCH (08:38)
[2016-06-09] MEDS: AMLODIPINE 5 MG TAB PO SCH (08:39)
--- NOTE | 2016-06-09 10:03 | PN ---
DATE: 06/09/2016 SUBJECTIVE: The patient is complaining of pain in his right forearm, repeat x-rays performed yester day do show a nondisplaced fracture of the ulnar styloid which was not seen on the original forearm x-ray. No other acute events noted. No hemoptysis, hematemesis, or hematochezia. OBJECTIVE: VITAL SIGNS: Blood pressure 139/62, respirations 18, pulse 68, temperature 98.1. HEENT: Head is normocephalic. NECK: Supple. HEART: Regular rate. LUNGS: Show diminished breath sounds at the base. ABDOMEN: Soft, nontender to palpation, no rebound or guarding. EXTREMITIES: Negative for clubbing, cyanosis, edema. DERMATOLOGIC: No rashes. MUSCULOSKELETAL: The patient has swelling and pain around the right wrist. NEUROLOGIC: No focal deficits. LABORATORY DATA: Shows sodium 144, potassium ____, chloride 98, BUN 78, creatinine 0.12. White cou nt 10.4, hemoglobin 10.1, hematocrit 34.1, platelet count is 270. IMAGING: The patient's chest x-ray shows small right pleural effusion, improved pulmonary edema. F orearm x-ray of the left arm showed no acute fracture and, as stated above, repeat forearm x-ray julian ws acute nondisplaced fracture and ulnar styloid. ASSESSMENT AND PLAN: 1. Acute fracture of the ulnar styloid. The patient's repeat forearm x-rays do shows findings of a cute fracture. Plan at this point is to place an orthopedic consult with Dr. Duong Vidal for evaluati on. The patient is advised for nonweightbearing of that arm until evaluation and monitor closely. 2. End-stage renal disease. Patient to have dialysis today for 3 hours, 3K bath, calcium 2.5. 3. Volume overload, improving. Continue ultrafiltration dialysis. 4. Right-sided pleural effusion, improving. Continue dialysis. 5. Mineral bone disorder. Continue to monitor calcium and phosphorus levels. 6. History of coronary artery disease. Continue medical management. 7. Hypertension. Continue current blood pressure regimen. 8. Lower extremity excoriations. The patient was treated with ____, skin scrapings are pending. 9. History of schizoaffective disorder. 10. History of medical noncompliance. 11. Gastrointestinal and deep venous thrombosis prophylaxis. Continue PPIs and sequential leg sque ezers. Dictated By: CHELSI AGGARWAL/ED Conf#: [id number] DID#: [id number]
--- NOTE | 2016-06-09 10:38 | PN ---
DATE: 06/09/2016 CARDIOLOGY FOLLOWUP SUBJECTIVE: No new cardiac events. The patient with no chest pain or pressure. Denies shortness o f breath or palpitations to me. MEDICATIONS: Reviewed. PHYSICAL EXAMINATION: VITAL SIGNS: Temperature 98.1, heart rate of 64, blood pressure 113/62, respiratory rate of 18. HEENT: Normocephalic, atraumatic. Pupils are equal. CARDIOVASCULAR: Regular rate and rhythm, systolic murmur. PULMONARY: With no wheezes. Minimal rhonchi at the base on the right side. GASTROINTESTINAL: Soft, nontender. EXTREMITIES: No significant lower extremity edema. NEUROLOGIC: Awake and alert. PSYCHIATRIC: Appears to be anxious, but overall stable. LABORATORY DATA: WBC of 10.4, hemoglobin 10.1, platelets of 270. Sodium 144, potassium 5.2, BUN of 78, creatinine of 8.12, glucose of 96. ASSESSMENT AND PLAN: 1. Congestive heart failure secondary to fluid overload and diastolic dysfunction, currently appear s to be stable. 2. Renal failure on dialysis. 3. Fracture of the ulnar styloid. Follow up with orthopedic consultation Dr. Vidal. 4. History of hypertension. 5. Schizoaffective disorder. 6. Anemia, currently stable. 7. Pulmonary hypertension secondary to above, improved. RECOMMENDATIONS: Dialysis as per renal will be continued. Continue the rest of his cardiac care. Follow up with orthopedics recommendation. Dictated By: SHABNAM MENG/ED Conf#: [id number] DID#: [id number] CC: CHELSI ASIF DO;*EndCC*
[2016-06-10] VITALS (11 sets, daily range): BP systolic 110–170; BP diastolic 56–78; PULSE 75–86; RESP 18–20
[2016-06-10] MEDS: PANTOPRAZOLE (EC) 40 MG TAB PO SCH (05:18)
[2016-06-10] MEDS: HYDROCODONE/APAP (5/325) TAB PO PRN ×2 (05:56→17:40)
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
[2016-06-10] MEDS: AMLODIPINE 5 MG TAB PO SCH (09:00)
[2016-06-10] MEDS: SEVELAMER 800 MG TAB PO SCH ×3 (09:02→17:35)
--- NOTE | 2016-06-10 10:08 | PN ---
DATE: 06/10/2016 SUBJECTIVE: The patient is stable, no acute events overnight. No fevers, chills, nausea, vomiting. OBJECTIVE: VITAL SIGNS: Blood pressure is 156/74, respiratory rate 20, pulse 77, temperature 98.1. HEENT: Head is normocephalic. NECK: Supple. HEART: Regular rate. LUNGS: Show diminished breath sounds at the bases. ABDOMEN: Soft, nontender to palpation. No rebound or guarding. EXTREMITIES: Negative for clubbing, cyanosis. No edema. DERMATOLOGIC: No rashes. MUSCULOSKELETAL: No joint effusions. NEUROLOGIC: No change in exam. MEDICATIONS: The patient's medications have been reviewed. LABORATORY DATA: Has been reviewed. ASSESSMENT AND PLAN: 1. Acute fracture of ulnar styloid. The patient has been followed by Dr. Vidal, placed in a brace. We will continue to monitor. 2. Bilateral knee pain. X-rays of the knees are pending. Continue to monitor. Continue pain cont rol. 3. End-stage renal disease. The patient had hemodialysis yesterday. Plan for dialysis tomorrow. 4. Volume overload, improving. Continue ultrafiltration. 5. Right-sided pleural effusion, improving. Continue to monitor. Continue dialysis. 6. Mineral bone disorder. Continue to monitor calcium and phosphorus levels. 7. History of coronary artery disease. Continue current medical management. 8. Hypertension. Continue current blood pressure regimen. 9. History of schizoaffective disorder. 10. History of medical noncompliance. 11. Gastrointestinal and deep vein thrombosis prophylaxis. Continue proton pump inhibitor and sequ ential leg squeezers. Dictated By: CHELSI AGGARWAL/ED Conf#: [id number] DID#: [id number]
[2016-06-10 11:10] LABS: POTASSIUM 5.2 mmol/L (3.5-5.1)
[2016-06-10 11:13] LABS: CREATININE 8.19 mg/dl (0.61-1.24)
[2016-06-10 11:14] LABS: CALCIUM 9.3 mg/dl (8.4-10.2)
--- NOTE | 2016-06-10 11:25 | RADRPT ---
PROCEDURE: Left knee x-ray ; right knee x-ray. CLINICAL INDICATION: Generalized knee pain. TECHNIQUE: AP, lateral and oblique views of the left knee were obtained. AP, tunnel and lateral vi ews of the right knee were performed. COMPARISON: Right knee 05/25/2016. FINDINGS: There is a intramedullary trini partially visualized in the distal right femur. The right femoral not ch is normal. An intramedullary trini is identified in the distal right femur. There are vascular calcifications in the superficial femoral popliteal and trifurcation vessels. No effusion is noted. The bones are r arefied. No significant degenerative changes are present. No joint space effusion is noted in the l eft knee. IMPRESSION: 1. Normal AP and tunnel views of the right knee with a partially visualized intramedullary trini noted in the distal right femur. 2. There are vascular calcifications in the right superficial femoral and popliteal and trifurcatio n vessels. 3. Medial joint space compartment narrowing in the left knee. 3. Vascular calcifications in the left superficial femoral artery and trifurcation vessels. RPTAT:AAJJ Physician Petar Date Time Electronically viewed and signed by Physician Petar on 06/10/2016 11:24 /
[2016-06-11] VITALS (9 sets, daily range): BP systolic 101–122; BP diastolic 51–64; PULSE 80–86; RESP 16–19
[2016-06-11] MEDS: PANTOPRAZOLE (EC) 40 MG TAB PO SCH (06:13)
[2016-06-11 06:19] LABS: ADD SCAN DIFF NO
[2016-06-11 06:27] LABS: ABNORMAL IP MESSAGE 1; BASOPHILS % 0.4 % (0.0-2.0); EOSINOPHILS # 0.2 10^3/ul (0.0-0.5); EOSINOPHILS % 1.7 % (0.0-7.0); HEMATOCRIT 35.9 % (42.0-52.0); HEMOGLOBIN 10.6 g/dl (14.0-18.0); LYMPHOCYTES # 0.8 10^3/ul (0.8-2.9); LYMPHOCYTES % 7.6 % (15.0-51.0); MEAN CORPUSCULAR HEMOGLOBIN 28.6 pg (29.0-33.0); MEAN CORPUSCULAR HGB CONC 29.5 g/dl (32.0-37.0); MEAN CORPUSCULAR VOLUME 96.8 fl (82.0-101.0); MEAN PLATELET VOLUME 9.1 fl (7.4-10.4); MONOCYTE # 1.6 10^3/ul (0.3-0.9); MONOCYTES % 15.5 % (0.0-11.0); NEUTROPHIL # 7.9 10^3/ul (1.6-7.5); PLATELET COUNT 271 10^3/UL (140-415); RED BLOOD COUNT 3.71 10^6/ul (4.70-6.10); RED CELL DISTRIBUTION WIDTH 14.6 % (11.5-14.5); WHITE BLOOD COUNT 10.6 10^3/ul (4.8-10.8)
[2016-06-11 06:45] LABS: POTASSIUM 5.4 mmol/L (3.5-5.1)
[2016-06-11 06:48] LABS: CREATININE 8.28 mg/dl (0.61-1.24); PHOSPHORUS 7.4 mg/dl (2.5-4.9)
[2016-06-11 06:49] LABS: CALCIUM 9.6 mg/dl (8.4-10.2); MAGNESIUM 2.3 mg/dl (1.7-2.5)
[2016-06-11] MEDS: SEVELAMER 800 MG TAB PO SCH ×3 (08:39→18:00)
[2016-06-11] MEDS: AMLODIPINE 5 MG TAB PO SCH (09:00)
[2016-06-11] MEDS ORDERED: ALTEPLASE (CATHFLO) 2 MG INJ CATHETER ONE (11:00)
[2016-06-11] MEDS: HYDROCODONE/APAP (5/325) TAB PO PRN ×2 (12:36→21:05)
[2016-06-11] MEDS ORDERED: GENTAMICIN IV PER PHARMACY XX SCH (21:30)
[2016-06-11] MEDS ORDERED: GENTAMICIN 90 MG in SOD CHLORIDE 0.9% 50 ML IVPB SCH (22:00)
[2016-06-12] VITALS (10 sets, daily range): BP systolic 94–177; BP diastolic 50–82; PULSE 80–95; RESP 16–20
[2016-06-12] MEDS: PANTOPRAZOLE (EC) 40 MG TAB PO SCH (06:43)
[2016-06-12] MEDS: HYDROCODONE/APAP (5/325) TAB PO PRN ×2 (06:46→13:45)
[2016-06-12] MEDS: AMLODIPINE 5 MG TAB PO SCH (09:00)
[2016-06-12] MEDS: SEVELAMER 800 MG TAB PO SCH ×3 (09:05→17:16)
--- NOTE | 2016-06-12 11:04 | PN ---
DATE: 06/12/2016 SUBJECTIVE: Patient stable, no acute events overnight, no fevers, chills, nausea or vomiting. The patient had hemodialysis yesterday, tolerated well. OBJECTIVE: VITAL SIGNS: Blood pressure is 140/74, respirations 20, pulse 93, temperature 97.8. HEENT: Head is normocephalic. NECK: Supple. HEART: Regular rate. LUNGS: Show diminished breath sounds at base. ABDOMEN: Soft, nontender to palpation. No rebound or guarding. EXTREMITIES: Negative for clubbing, cyanosis. No edema. DERMATOLOGIC: No rashes. MUSCULOSKELETAL: No joint effusions. NEUROLOGIC: No change in exam. MEDICATIONS: The patient's medications have been reviewed. LABORATORY DATA: Currently pending. ASSESSMENT AND PLAN: 1. Acute ulnar styloid fracture. The patient was seen by Dr. Vidal, brace has been placed. Continue pain management. 2. Bilateral knee pain. The patient is status post x-rays of the knee which showed no acute fractu re. Continue current pain regimen. Continue physical therapy. 3. End-stage renal disease. The patient is receiving dialysis near daily for solute clearance. We will follow up with renal panel today. If the patient remains hyperkalemic, we will plan for dialy sis, otherwise plan for dialysis tomorrow. 4. Volume overload, improved. Continue ultrafiltration with dialysis. 5. Right-sided pleural effusion, improvement. Continue current medical management. Continue dialy sis. 6. Mineral bone disorder. Continue to monitor calcium and phosphorus levels. Continue phosphate b inders. 7. History of coronary artery disease. Continue current medical management. 8. Hypertension. Continue current blood pressure regimen. 9. History of schizoaffective disorder. 10. History of medical noncompliance. 11. Gastrointestinal and deep venous thrombosis prophylaxis. Continue PPIs and sequential leg sque ezers. Dictated By: CHELSI AGGARWAL/ED Conf#: [id number] DID#: [id number]
[2016-06-12] MEDS: IBUPROFEN 600 MG TAB PO PRN ×2 (11:24→17:16)
[2016-06-12 12:40] LABS: POTASSIUM 5.2 mmol/L (3.5-5.1)
[2016-06-12 12:43] LABS: CALCIUM 9.8 mg/dl (8.4-10.2); CREATININE 8.13 mg/dl (0.61-1.24)
[2016-06-12] MEDS ORDERED: BUPIVACAINE 0.5%/EPI (SDV) 30 ML INJ INJ ONE (17:00)
[2016-06-12] MEDS ORDERED: BETAMET NA PHOS/AC(6 MG/ML) 5ML INJ INJ ONE (17:00)
--- NOTE | 2016-06-12 18:14 | PN ---
DATE: 06/12/2016 SUBJECTIVE: The patient ____ telemetry. Denies any chest pain or pressure to me. Does complain of all-body pain. All of his ____ are inflamed. Denies any shortness of breath to me. MEDICATIONS: Reviewed. PHYSICAL EXAMINATION: VITAL SIGNS: Temperature 97.8, heart rate of 94, blood pressure 140/74, respiratory rate of 20, sat urating 95%. HEENT: Normocephalic, atraumatic. Pupils are equal. CARDIOVASCULAR: Regular rate and rhythm. PULMONARY: No wheezes heard. GASTROINTESTINAL: Soft, nontender. EXTREMITIES: No significant lower extremity edema. NEUROLOGIC: Awake, alert, appeared to be anxious. LABORATORY: WBC of 10.6, hemoglobin 10.6, platelets 271. Sodium 141, potassium 5.2, BUN 86, creati nine 8.12, glucose of 112. ASSESSMENT AND PLAN: 1. Congestive heart failure/fluid overload secondary to diastolic dysfunction as well as fluid over load, currently improved. 2. Renal failure on dialysis. 3. Hypertension, under good control now. 4. Pleural effusion that is improved now. 5. Possible history of coronary artery disease, currently stable. No angina. 6. Arthritis and ulnar-sided fracture. RECOMMENDATIONS: Follow up with Ortho's recommendation ____ continue with dialysis. Coreg will be continued as well. Dictated By: SHABNAM MENG/ED Conf#: [id number] DID#: [id number] CC: CHELIS ASIF DO;*EndCC*
--- NOTE | 2016-06-12 19:47 | PN ---
DATE: 06/12/2016 X-rays of the left knee shows mild degenerative changes. The patient claims that he is also having pain in the right knee and had steroid injection in the past. He is still complaining of pain invol ving his left knee. We will inject his both knee with steroids when it is available. Dictated By: YESENIA RICHTER MD IK/NTS Conf#: [id number] DID#: [id number] CC: SARTHAK PATEL MD;*EndCC*
[2016-06-13] MEDS: HYDROCODONE/APAP (5/325) TAB PO PRN ×2 (00:20→09:33)
[2016-06-13 05:34] LABS: ADD SCAN DIFF NO
[2016-06-13 05:46] LABS: ABNORMAL IP MESSAGE 1; BASOPHIL # 0.1 10^3/ul (0.0-0.1); BASOPHILS % 0.4 % (0.0-2.0); EOSINOPHILS # 0.2 10^3/ul (0.0-0.5); EOSINOPHILS % 1.2 % (0.0-7.0); HEMATOCRIT 38.5 % (42.0-52.0); HEMOGLOBIN 11.4 g/dl (14.0-18.0); LYMPHOCYTES # 1.1 10^3/ul (0.8-2.9); LYMPHOCYTES % 8.2 % (15.0-51.0); MEAN CORPUSCULAR HEMOGLOBIN 28.2 pg (29.0-33.0); MEAN CORPUSCULAR HGB CONC 29.6 g/dl (32.0-37.0); MEAN CORPUSCULAR VOLUME 95.3 fl (82.0-101.0); MEAN PLATELET VOLUME 8.9 fl (7.4-10.4); MONOCYTE # 2.1 10^3/ul (0.3-0.9); NEUTROPHIL # 10.2 10^3/ul (1.6-7.5); NEUTROPHILS % 74.2 % (39.0-77.0); PLATELET COUNT 305 10^3/UL (140-415); RED BLOOD COUNT 4.04 10^6/ul (4.70-6.10); RED CELL DISTRIBUTION WIDTH 14.4 % (11.5-14.5); WHITE BLOOD COUNT 13.7 10^3/ul (4.8-10.8)
[2016-06-13 06:21] LABS: POTASSIUM 4.8 mmol/L (3.5-5.1)
[2016-06-13 06:24] LABS: CREATININE 7.64 mg/dl (0.61-1.24)
[2016-06-13 06:25] LABS: MAGNESIUM 2.2 mg/dl (1.7-2.5); PHOSPHORUS 6.8 mg/dl (2.5-4.9)
[2016-06-13] MEDS: PANTOPRAZOLE (EC) 40 MG TAB PO SCH (06:43)
[2016-06-13 07:45] VITALS: BP 156/72; RESP 21
[2016-06-13] MEDS: IBUPROFEN 600 MG TAB PO PRN (08:11)
[2016-06-13] MEDS: SEVELAMER 800 MG TAB PO SCH ×3 (08:12→17:29)
[2016-06-13] MEDS: AMLODIPINE 5 MG TAB PO SCH (09:00)
--- NOTE | 2016-06-13 12:26 | PN ---
DATE: 06/13/2016 SUBJECTIVE: The patient is stable, no acute events overnight. No fevers, chills, nausea, vomiting. The patient had hemodialysis yesterday, tolerated well. OBJECTIVE: VITAL SIGNS: Blood pressure was 156/72, respiration 21, pulse 93, temperature 97.7. HEENT: Head is normocephalic. NECK: Supple. HEART: Regular rate. LUNGS: Show diminished breath sounds at base. ABDOMEN: Soft, nontender to palpation. No rebound or guarding. EXTREMITIES: Negative for clubbing, cyanosis, edema. DERMATOLOGIC: No rashes. MUSCULOSKELETAL: No joint effusions. NEUROLOGIC: No change in exam. MEDICATIONS: The patient's medications have been reviewed. LABORATORY DATA: White count 13.7, hemoglobin 11.4, hematocrit 38.5, platelet count is 305. Sodium 139, potassium 4.8, BUN 81, creatinine is 7.6, phosphorus 6.8. ASSESSMENT AND PLAN: 1. Acute ulnar styloid fracture. The patient is currently fitted with a brace, was seen by Dr. Vidal . Continue to monitor. 2. Bilateral knee pain. The patient's x-ray shows arthritis pending possible cortisone injection. 3. End-stage renal disease. The patient is receiving near daily dialysis for solute clearance, vol ume removal. We will plan for dialysis tomorrow. 4. Hyperkalemia secondary to end-stage renal disease, improved. Continue low-potassium diet, low p otassium bath with dialysis. 5. Volume overload. Continue ultrafiltration with dialysis. 6. Right-sided pleural effusion, improving. Continue current medical management. 7. Mineral bone disorder. Continue to monitor calcium and phosphorus levels. Continue phos binder s. 8. Coronary artery disease. Continue medical management. 9. Hypertension. Continue current blood pressure regimen. 10. History of schizoaffective disorder, history of medical noncompliance. 11. Gastrointestinal and deep venous thrombosis prophylaxis. Continue proton pump inhibitor and se quential leg squeezers. Dictated By: CHELSI AGGARWAL/ED Conf#: [id number] DID#: [id number]
[2016-06-13 12:41] VITALS: BP 117/66; PULSE 92
--- NOTE | 2016-06-13 15:20 | PN ---
DATE: 06/13/2016 Both knees were injected with the combination of Celestone and Marcaine. Range of motion of both kn ees was better with less pain following the injection. Okay to be discharged from ortho point. Fur ther followup can be done as an outpatient on p.r.n. basis. Dictated By: YESENIA PASCAL/ED Conf#: [id number] DID#: [id number]
--- NOTE | 2016-06-13 16:34 | PN ---
DATE: 06/13/2016 CARDIOLOGY FOLLOWUP SUBJECTIVE: No new cardiac event. No reported chest pain or pressure. MEDICATIONS: Reviewed. PHYSICAL EXAMINATION: VITAL SIGNS: Temperature 97.7, heart rate of 92, blood pressure 170/63, respiration 21. HEENT: Normocephalic, atraumatic. CARDIOVASCULAR: Regular rate and rhythm. PULMONARY: With no wheezes. GASTROINTESTINAL: Soft. NEUROLOGIC: Awake and alert. LABORATORY: WBC of 13.7, hemoglobin 11.4, platelets of 305. ASSESSMENT AND PLAN: 1. Congestive heart failure secondary to fluid overload. 2. Renal failure. 3. Hypertension. 4. Pleural effusion. RECOMMENDATIONS: We will continue with the current cardiac care. Follow up with ortho's recommenda tion. Dialysis as per renal. Dictated By: SHABNAM MENG/ED Conf#: [id number] DID#: [id number] CC: CHELSI ASIF DO;*EndCC*
[2016-06-13 17:30] VITALS: BP 158/75; PULSE 86
[2016-06-13 21:00] VITALS: BP 133/70; PULSE 76; RESP 16
[2016-06-14] VITALS (12 sets, daily range): BP systolic 92–125; BP diastolic 50–66; PULSE 72–85; RESP 18–20
[2016-06-14] MEDS: PANTOPRAZOLE (EC) 40 MG TAB PO SCH (06:45)
[2016-06-14] MEDS: SEVELAMER 800 MG TAB PO SCH ×3 (08:22→17:11)
[2016-06-14] MEDS: AMLODIPINE 5 MG TAB PO SCH (09:00)
--- NOTE | 2016-06-14 09:50 | PN ---
DATE: 06/14/2016 CARDIOLOGY FOLLOWUP SUBJECTIVE: No new cardiac event. No chest pain or pressure. Patient is feeling better. His knee pain is much better after the injection. MEDICATIONS: Reviewed. PHYSICAL EXAMINATION: VITAL SIGNS: Temperature 97.7, heart rate of 75, blood pressure 112/64, respiratory rate of 20. HEENT: Normocephalic, atraumatic. Pupils are equal. CARDIOVASCULAR: Regular rate and rhythm. PULMONARY: With no wheezes heard. GASTROINTESTINAL: Soft, nontender. EXTREMITIES: No significant lower extremity edema. NEUROLOGIC: Awake and alert. ASSESSMENT AND PLAN: 1. Congestive heart failure/fluid overload. 2. Renal failure on dialysis. 3. Hypertension. 4. Knee pain, arthritis. RECOMMENDATIONS: We will continue with the current cardiac care.\ Dictated By: SHABNAM MENG/ED Conf#: [id number] DID#: [id number] CC: CHELSI ASIF DO;*EndCC*
--- NOTE | 2016-06-14 10:23 | PN ---
DATE: 06/14/2016 SUBJECTIVE: Yesterday, the patient expressed desires of possible suicide ideation, a sitter was jack molina. The patient is pending medical social consultant and possible telemetry psychiatric evaluation. When I s poke to the patient this morning, he says he no longer expresses suicidal ideation and he was soni alarcon and people took him too seriously, those were his words. No other events noted. OBJECTIVE: VITAL SIGNS: Blood pressure 112/64, respirations 20, pulse 75, temperature 97.7. HEENT: Head is normocephalic. NECK: Supple. HEART: Regular rate. LUNGS: Show diminished breath sounds at the base. ABDOMEN: Soft, nontender to palpation. No rebound or guarding. EXTREMITIES: Negative for clubbing, cyanosis, no edema. DERMATOLOGIC: No rashes. MUSCULOSKELETAL: No joint effusions. NEUROLOGIC: No change in exam. MEDICATIONS: Have been reviewed. LABORATORY DATA: Has been reviewed. ASSESSMENT AND PLAN: 1. Acute ulnar styloid fracture. The patient is status post brace. Will continue to monitor. 2. Bilateral knee pain status post steroid cortisone injection. Will continue to monitor, continue pain control. Continue physical therapy. 3. End-stage renal disease. Plan for dialysis today for 3 hours, 2K bath, calcium 2.5. 4. Hyperkalemia secondary to end-stage renal disease. Continue low-potassium diet, low potassium b ath on dialysis. 5. Volume overload. Continue ultrafiltration with dialysis. 6. Right pleural effusion, improving. Continue medical management. 7. Mineral bone disorder. Continue to monitor calcium and phosphorus levels. 8. History of hypothyroidism. Will check a TSH, free T4 level. 9. Coronary artery disease. Continue medical management. 10. Hypertension. Continue current blood pressure regimen. 11. Questionable suicide ideation. The patient will be evaluated by medical social consultant and possible p sychiatric evaluation. Will continue to monitor. Currently expressing no signs of suicidal ideatio n. 12. History of schizoaffective disorder. 13. History of medical noncompliance. 14. Gastrointestinal and deep venous thrombosis prophylaxis. Continue proton pump inhibitor and se quential leg squeezers. Dictated By: CHELSI AGGARWAL/ED Conf#: [id number] DID#: [id number]
[2016-06-14 11:33] LABS: ADD SCAN DIFF NO
[2016-06-14 11:44] LABS: BASOPHILS % 0.1 % (0.0-2.0); HEMATOCRIT 36.7 % (42.0-52.0); HEMOGLOBIN 11.3 g/dl (14.0-18.0); LYMPHOCYTES # 0.7 10^3/ul (0.8-2.9); LYMPHOCYTES % 4.9 % (15.0-51.0); MEAN CORPUSCULAR HEMOGLOBIN 28.7 pg (29.0-33.0); MEAN CORPUSCULAR HGB CONC 30.8 g/dl (32.0-37.0); MEAN CORPUSCULAR VOLUME 93.1 fl (82.0-101.0); MEAN PLATELET VOLUME 8.9 fl (7.4-10.4); MONOCYTE # 0.8 10^3/ul (0.3-0.9); MONOCYTES % 5.6 % (0.0-11.0); NEUTROPHIL # 12.6 10^3/ul (1.6-7.5); NEUTROPHILS % 88.7 % (39.0-77.0); PLATELET COUNT 349 10^3/UL (140-415); RED BLOOD COUNT 3.94 10^6/ul (4.70-6.10); RED CELL DISTRIBUTION WIDTH 14.1 % (11.5-14.5); WHITE BLOOD COUNT 14.2 10^3/ul (4.8-10.8)
[2016-06-14] MEDS: IBUPROFEN 600 MG TAB PO PRN (12:15)
[2016-06-15] VITALS (11 sets, daily range): BP systolic 88–145; BP diastolic 51–71; PULSE 75–86; RESP 16–24
[2016-06-15 06:05] LABS: ADD SCAN DIFF NO
[2016-06-15 06:11] LABS: ABNORMAL IP MESSAGE 1; BASOPHILS % 0.1 % (0.0-2.0); EOSINOPHILS % 0.2 % (0.0-7.0); HEMATOCRIT 35.2 % (42.0-52.0); LYMPHOCYTES # 0.9 10^3/ul (0.8-2.9); LYMPHOCYTES % 6.1 % (15.0-51.0); MEAN CORPUSCULAR HEMOGLOBIN 29.2 pg (29.0-33.0); MEAN CORPUSCULAR HGB CONC 31.3 g/dl (32.0-37.0); MEAN CORPUSCULAR VOLUME 93.4 fl (82.0-101.0); MEAN PLATELET VOLUME 9.1 fl (7.4-10.4); MONOCYTE # 1.7 10^3/ul (0.3-0.9); MONOCYTES % 11.7 % (0.0-11.0); NEUTROPHIL # 11.6 10^3/ul (1.6-7.5); NEUTROPHILS % 81.1 % (39.0-77.0); PLATELET COUNT 333 10^3/UL (140-415); RED BLOOD COUNT 3.77 10^6/ul (4.70-6.10); RED CELL DISTRIBUTION WIDTH 14.3 % (11.5-14.5); WHITE BLOOD COUNT 14.3 10^3/ul (4.8-10.8)
[2016-06-15 06:43] LABS: POTASSIUM 5.6 mmol/L (3.5-5.1)
[2016-06-15 06:46] LABS: CALCIUM 9.3 mg/dl (8.4-10.2); PHOSPHORUS 6.9 mg/dl (2.5-4.9)
[2016-06-15] MEDS: PANTOPRAZOLE (EC) 40 MG TAB PO SCH (06:51)
[2016-06-15 06:58] LABS: CREATININE 7.78 mg/dl (0.61-1.24)
[2016-06-15] MEDS: SEVELAMER 800 MG TAB PO SCH ×3 (08:24→17:51)
[2016-06-15] MEDS: AMLODIPINE 5 MG TAB PO SCH (08:27)
--- NOTE | 2016-06-15 08:27 | PN ---
DATE: 06/15/2016 SUBJECTIVE: The patient is stable. The patient expressed to me that, again, he was kidding when he talked about suicide ideation. Denies any suicidal ideation at this time. No other events noted. OBJECTIVE: VITAL SIGNS: Blood pressure 139/68, respirations 24, pulse 82, temperature 97.9. HEENT: Head is normocephalic. NECK: Supple. HEART: Regular rate. LUNGS: Showed diminished breath sounds at the base. ABDOMEN: Soft, nontender to palpation. No rebound or guarding. EXTREMITIES: Negative for clubbing or cyanosis. No edema. DERMATOLOGIC: No rashes. MUSCULOSKELETAL: Have no joint effusion. NEUROLOGIC: No change in exam. MEDICATIONS: The patient's medications have been reviewed. LABORATORY DATA: Shows sodium 138, potassium 5.6, chloride 96, BUN 6, creatinine 7.78. White count 14.3, hemoglobin 11.0, hematocrit 35.2, platelet count is 333. ASSESSMENT AND PLAN: 1. Acute ulnar styloid fracture. The patient is status post evaluation by Dr. Vidal, and has been pl aced in a brace. 2. Bilateral knee pain, status post cortisone injection. Improving. Continue to monitor. 3. Leukocytosis. Etiology is likely secondary to recent steroid injection. No evidence of infecti on. Will, however, check a procalcitonin level, check a urinalysis, will monitor closely. 4. End-stage renal disease. The patient will have dialysis today due to hyperkalemia and for solut e clearance. I spoke with the patient, asking him to allow us to use his fistula, which would offer better solute clearance. The patient adamantly refuses. I also informed the patient that we may h ave to exchange his PermCath which may not be appropriately working. He refuses. 5. Hypokalemia secondary to end-stage renal disease. Continue a low-potassium diet. Continue dial ysis. 6. Volume overload. Improving. Continue ultrafiltration. 7. Right pleural effusion. Improving. Continue ultrafiltration with dialysis. 8. Mineral bone disorder. Continue to monitor calcium and phosphorus levels. 9. Reported history of hypothyroidism. The patient's TSH is within normal limits. Continue to mon itor. 10. Coronary artery disease. Continue medical management. 11. Hypertension. Continue the current blood pressure regimen. 12. History of schizoaffective disorder. 13. History of medical noncompliance. 14. Gastrointestinal and deep vein thrombosis prophylaxis. Continue PPI and sequential leg squeeze rs. Dictated By: CHELSI AGGARWAL/ED Conf#: [id number] DID#: [id number]
--- NOTE | 2016-06-15 09:59 | PN ---
DATE: 06/15/2016 CARDIOLOGY FOLLOWUP SUBJECTIVE: The patient with no chest pain or pressure. No palpitations or shortness of breath. D enies any PND or orthopnea to me. His knee pain has significantly improved. MEDICATIONS: Reviewed, as per medication reconciliation, personally reviewed. PHYSICAL EXAMINATION: VITAL SIGNS: Temperature 97.9, heart rate 82, blood pressure 113/68, respiration rate of 24, satura ting 97%. HEENT: Normocephalic, atraumatic. Pupils are equal and round. CARDIOVASCULAR: Regular rate and rhythm. PULMONARY: With no wheezes heard. Minimal rhonchi at the right base. GASTROINTESTINAL: Soft, nontender. EXTREMITIES: With no significant lower extremity edema. NEUROLOGIC: Awake and alert. PSYCHIATRIC: Appears to be calm now. LABORATORY: WBC of 14.3, hemoglobin 11, platelets 333. Sodium 135, potassium 5.6, BUN 106, creatin ine 0.78, glucose of 101. ASSESSMENT AND PLAN: 1. Congestive heart failure/fluid overload, currently has been dialyzed and improved significantly. 2. Renal failure. On dialysis. 3. Acute fracture. Status post evaluation with ortho and brace. 4. Knee pain, status post cortisone injection. Significant improvement. 5. Hypertension. Currently stable. 6. Hyperkalemia secondary to renal failure. Management as per dialysis. 7. History of hypertension. Currently stable. 8. History of psych disorder. RECOMMENDATIONS: We will continue with dialysis. Continue with the current cardiac care. Coreg wi ll be continued. Discharge planning as per renal. Dictated By: SHABNAM MENG/ED Conf#: [id number] DID#: [id number] CC: CHELSI ASIF DO;*EndCC*
[2016-06-15] MEDS: IBUPROFEN 600 MG TAB PO PRN (15:36)
[2016-06-15] MEDS: HYDROCODONE/APAP (5/325) TAB PO PRN (15:37)
[2016-06-16] VITALS (9 sets, daily range): BP systolic 109–155; BP diastolic 55–74; PULSE 74–78; RESP 16–18
[2016-06-16] MEDS: PANTOPRAZOLE (EC) 40 MG TAB PO SCH ×2 (06:00→08:36)
[2016-06-16 06:09] LABS: ADD SCAN DIFF NO
[2016-06-16 06:17] LABS: ABNORMAL IP MESSAGE 1; BASOPHILS % 0.2 % (0.0-2.0); EOSINOPHILS # 0.1 10^3/ul (0.0-0.5); EOSINOPHILS % 0.6 % (0.0-7.0); HEMATOCRIT 31.6 % (42.0-52.0); HEMOGLOBIN 9.8 g/dl (14.0-18.0); LYMPHOCYTES # 0.9 10^3/ul (0.8-2.9); LYMPHOCYTES % 8.9 % (15.0-51.0); MEAN CORPUSCULAR HEMOGLOBIN 29.4 pg (29.0-33.0); MEAN CORPUSCULAR VOLUME 94.9 fl (82.0-101.0); MEAN PLATELET VOLUME 9.1 fl (7.4-10.4); MONOCYTE # 1.5 10^3/ul (0.3-0.9); NEUTROPHILS % 73.3 % (39.0-77.0); PLATELET COUNT 291 10^3/UL (140-415); RED BLOOD COUNT 3.33 10^6/ul (4.70-6.10); RED CELL DISTRIBUTION WIDTH 14.1 % (11.5-14.5); WHITE BLOOD COUNT 9.6 10^3/ul (4.8-10.8)
[2016-06-16 06:30] LABS: POTASSIUM 5.5 mmol/L (3.5-5.1)
[2016-06-16 06:33] LABS: PHOSPHORUS 5.7 mg/dl (2.5-4.9)
[2016-06-16 06:34] LABS: CALCIUM 8.9 mg/dl (8.4-10.2); MAGNESIUM 2.1 mg/dl (1.7-2.5)
[2016-06-16 06:42] LABS: CREATININE 7.04 mg/dl (0.61-1.24)
--- NOTE | 2016-06-16 08:30 | PN ---
DATE: 06/16/2016 SUBJECTIVE: The patient is stable. No acute events overnight. No fevers, chills, nausea or vomiti ng. The patient's pain is improving. OBJECTIVE: VITAL SIGNS: Blood pressure is 145/67, respirations 16, pulse 77, temperature 98.0. HEENT: Head is normocephalic. NECK: Supple. HEART: Regular rate. LUNGS: Showed diminished breath sounds at the base. ABDOMEN: Soft, nontender to palpation. No rebound or guarding. EXTREMITIES: Negative for clubbing or cyanosis. No edema. DERMATOLOGIC: No rashes. MUSCULOSKELETAL: Have no joint effusion. NEUROLOGIC: No change in exam. MEDICATIONS: The patient's medications have been reviewed. LABORATORY DATA: Shows sodium 135, potassium , chloride 99, BUN 93, creatinine 7.05, phosphoru s 5.7. White count 9.6, hemoglobin 9.8, hematocrit 31.6, platelet count 291. ASSESSMENT AND PLAN: 1. Acute ulnar styloid fracture. The patient is status post brace placement. Continue pain contro l. 2. Bilateral knee pain secondary to arthritis. Status post cortisone injection. Improving. Isacc nue physical therapy. 3. Leukocytosis, likely secondary to steroid injections. Resolved. 4. End-stage renal disease. The patient has been having daily dialysis due to hyperkalemia for courtney cj clearance. The patient refuses to allow us to use his fistula, which would allow for better leonardo arance. The possibility of medical noncompliance with diet or PermCath malfunction may be a contrib uting factor to the patient's persistent hyperkalemia. Plan is to check a Kt/V after today's dialys is session. Will discuss with dialysis nurse. If necessary, will consider replacing PermCath. 5. Hyperkalemia secondary to end-stage renal disease. Continue a low-potassium diet. Continue maame lysis and low potassium bath. 6. Volume overload. Improving. Continue ultrafiltration. 7. Mineral bone disorder. Continue to monitor calcium and phosphorus levels. Continue phos binder s. 8. Coronary artery disease. Continue the current medical regimen. 9. Hypertension. Continue the current blood pressure regimen. 10. History of schizoaffective disorder. 11. History of medical compliance. 12. Gastrointestinal and deep vein thrombosis prophylaxis. Continue PPI and sequential leg squeeze rs. DISPOSITION: The patient is awaiting SNF placement by case management. The patient is homeless. Dictated By: CHELSI AGGARWAL/ED Conf#: [id number] DID#: [id number]
[2016-06-16] MEDS: SEVELAMER 800 MG TAB PO SCH ×3 (08:36→17:22)
[2016-06-16] MEDS: AMLODIPINE 5 MG TAB PO SCH (09:00)
[2016-06-16] MEDS: HYDROCODONE/APAP (5/325) TAB PO PRN (12:06)
[2016-06-16] MEDS: IBUPROFEN 600 MG TAB PO PRN (14:10)
[2016-06-17] VITALS (9 sets, daily range): BP systolic 122–155; BP diastolic 61–88; PULSE 75–89; RESP 18–20
[2016-06-17 07:43] LABS: POTASSIUM 5.5 mmol/L (3.5-5.1)
[2016-06-17 07:47] LABS: CALCIUM 8.7 mg/dl (8.4-10.2); MAGNESIUM 2.1 mg/dl (1.7-2.5); PHOSPHORUS 4.7 mg/dl (2.5-4.9)
[2016-06-17 08:00] LABS: CREATININE 6.54 mg/dl (0.61-1.24)
[2016-06-17] MEDS: SEVELAMER 800 MG TAB PO SCH ×3 (08:47→17:12)
[2016-06-17] MEDS: AMLODIPINE 5 MG TAB PO SCH (09:00)
--- NOTE | 2016-06-17 09:37 | PN ---
DATE: SUBJECTIVE: The patient is stable. Had hemodialysis yesterday, tolerated it well. The patient con tinues to be hyperkalemic refusing AV fistula to be used for hemodialysis. No other events noted. No hemoptysis, hematemesis or hematochezia. OBJECTIVE: VITAL SIGNS: Blood pressure is 140/65, respiration 18, pulse is 65, temperature 97.5. HEENT: Head is normocephalic. NECK: Supple. HEART: Regular rate. LUNGS: Show diminished breath sounds at base. ABDOMEN: Soft, nontender to palpation. No rebound or guarding. EXTREMITIES: Negative for clubbing, cyanosis. No edema. DERMATOLOGIC: No rashes. MUSCULOSKELETAL: No joint effusions. NEUROLOGIC: No change in exam. MEDICATIONS: The patient's medications have been reviewed. LABORATORY DATA: Sodium 139, potassium 5.5, chloride 106, BUN 26, creatinine 6.54. ASSESSMENT AND PLAN: 1. Acute ulnar styloid fracture: The patient is status post brace placement. Continue pain contro l. 2. Bilateral knee osteoarthritis: The patient is status post cortisone injection. Continue physic al therapy. 3. Leukocytosis secondary to steroids: Resolved. 4. End-stage renal disease: The patient continues to have persistent hyperkalemia despite daily di alysis. The patient refuses to allow us to use his fistula which would allow for better clearance. The patient also noncompliant with renal diet. We will continue current dialysis with a Perm-A-Cat h . Kt/V will be reassessed today. Will monitor closely. 5. Hyperkalemia: Continue secondary to end-stage renal disease. Continue low-potassium diet. Cont inue dialysis. 6. Volume overload: Improving. 7. Metabolic bone disorder: Monitor calcium and phosphorus. 8. Coronary artery disease: Continue current treatment plan. 9. Hypertension: Continue current blood pressure regimen. 10. History of schizoaffective disorder. 11. History of medical noncompliance. 12. GI and DVT prophylaxis: Continue PPI and sequential leg squeezers. DISPOSITION: The patient is awaiting NSF placement. Dictated By: CHELSI AGGARWAL/NTS Conf#: [id number] DID#: [id number]
[2016-06-17] MEDS: HYDROCODONE/APAP (5/325) TAB PO PRN ×2 (09:59→20:30)
--- NOTE | 2016-06-17 13:34 | PN ---
DATE: 06/16/2016 CARDIOLOGY FOLLOWUP SUBJECTIVE: No new cardiac event. No chest pain. Feeling better. Denies any shortness of breath or palpitations to me. MEDICATIONS: Reviewed. PHYSICAL EXAMINATION: VITAL SIGNS: Temperature 98, heart rate of 75, blood pressure 121/74, respiration rate of 20. HEENT: Normocephalic, . Pupils are equal. CARDIOVASCULAR: Regular rate and rhythm. PULMONARY: With no wheezes or rhonchi. GASTROINTESTINAL: Soft, nontender. EXTREMITIES: No significant edema. NEUROLOGIC: Awake and alert. PSYCHIATRIC: Calm. LABORATORY: WBC of 9.6, hemoglobin 9.8, platelets of 291. Sodium 135, potassium 5.5, BUN 93, creat inine of 7, glucose 108. ASSESSMENT AND PLAN: 1. Congestive heart failure and fluid overload. 2. Renal failure, status post dialysis. 3. Hypertension, controlled. 4. Arthritis of the knees status post knee injection by ortho. 5. . RECOMMENDATIONS: Cardiac barclay, the patient appeared to be stable. We will continue with the [facility] cardiac care. Blood pressure currently stable on medical regimen. Continue with dialysis. We wi ll follow up p.r.n. Dictated By: SHABNAM MENG/ED Conf#: [id number] DID#: [id number]
[2016-06-18] MEDS: PANTOPRAZOLE (EC) 40 MG TAB PO SCH ×2 (06:00→08:27)
[2016-06-18 06:47] LABS: POTASSIUM 4.5 mmol/L (3.5-5.1)
[2016-06-18 06:50] LABS: CREATININE 6.87 mg/dl (0.61-1.24)
[2016-06-18 06:51] LABS: CALCIUM 8.8 mg/dl (8.4-10.2); PHOSPHORUS 4.4 mg/dl (2.5-4.9)
[2016-06-18 08:00] VITALS: BP 126/55; RESP 18
[2016-06-18] MEDS: SEVELAMER 800 MG TAB PO SCH ×3 (08:26→17:15)
[2016-06-18] MEDS: AMLODIPINE 5 MG TAB PO SCH (08:34)
--- NOTE | 2016-06-18 09:31 | PN ---
DATE: 06/18/2016 SUBJECTIVE: The patient is clinically stable. He had hemodialysis yesterday with 2.5 liters remove d. No other events noted. OBJECTIVE: VITAL SIGNS: Blood pressure 154/74, respiratory rate 20, pulse 77, temperature 98.1. HEENT: Head is normocephalic. NECK: Supple. HEART: Regular rate. LUNGS: Show diminished breath sounds at base. ABDOMEN: Soft, nontender to palpation. No rebound or guarding. EXTREMITIES: Negative for clubbing, cyanosis, no edema. DERMATOLOGIC: No rashes. MUSCULOSKELETAL: No joint effusions. NEUROLOGIC: No change in exam. MEDICATIONS: The patient's medications have been reviewed. LABORATORY DATA: Sodium 138, potassium 4.5, chloride is 97, BUN 76, creatinine 6.87. ASSESSMENT AND PLAN: 1. End-stage renal disease. The patient has been having near daily dialysis for solute clearance. The patient's calculated Kt/V and URR on last hemodialysis which was only approximately 20%. I hav e spoken with the patient in detail about the necessity of using his AV fistula. The patient fundam entally refuses. I have also discussed with the patient about exchanging the PermCath which he also refuses. We will dissipate daily dialysis for 4 hours in order to improve clearance. We will jose enrique tor closely. 2. Acute ulnar styloid fracture status post brace placement. He was seen by orthopedist. Continue to monitor. 3. Bilateral knee osteoarthritis. The patient is status post cortisone injection. Continue physic al therapy. 4. Hyperkalemia. Continue low-potassium diet. Continue dialysis. 5. Volume overload, improving. 6. Mineral bone disorder. Continue to monitor calcium and phosphorus levels. 7. Coronary artery disease. Continue current treatment plan. 8. Hypertension. Continue current blood pressure regimen. 9. History of schizoaffective disorder. 10. History of medical noncompliance. 11. Status post leukocytosis. 12. Gastrointestinal and deep venous thrombosis prophylaxis. Continue PPIs and sequential leg sque ezers. DISPOSITION: The patient is awaiting SNF placement. Dictated By: CHELSI ASIF DO NR/NTS Conf#: [id number] DID#: [id number]
[2016-06-18] MEDS: HYDROCODONE/APAP (5/325) TAB PO PRN (12:05)
[2016-06-18 20:00] VITALS: BP 153/73; RESP 20
[2016-06-19] VITALS (12 sets, daily range): BP systolic 130–185; BP diastolic 61–81; PULSE 61–70; RESP 16–20
[2016-06-19] MEDS: SEVELAMER 800 MG TAB PO SCH ×3 (08:39→17:57)
[2016-06-19] MEDS: PANTOPRAZOLE (EC) 40 MG TAB PO SCH (08:46)
[2016-06-19] MEDS: AMLODIPINE 5 MG TAB PO SCH (09:00)
--- NOTE | 2016-06-19 10:39 | PN ---
DATE: SUBJECTIVE: The patient is stable. No acute events noted. She continues to have bilateral knee pa in. No significant change. OBJECTIVE: VITAL SIGNS: Blood pressure 160/72, respirations 20, pulse 69, temperature 98.3. HEENT: Head is normocephalic. NECK: Supple. HEART: Regular rate. LUNGS: Show diminished breath sounds at base. ABDOMEN: Soft, nontender to palpation. No rebound or guarding. EXTREMITIES: Negative for clubbing, cyanosis. No edema. DERMATOLOGIC: No rashes. MUSCULOSKELETAL: No joint effusions. MEDICATIONS: Patient medications have been reviewed. LABORATORY DATA: Shows sodium 138, potassium 4.5, chloride 97, BUN 76, creatinine 6.87, white count 9.6, hemoglobin 9.8, hematocrit 31.6, platelet count is 291. ASSESSMENT AND PLAN: 1. End-stage renal disease. The patient is scheduled for dialysis today. Will dialyze for 4 hours on a 2K bath, calcium 2.5, ultrafiltrate as tolerated. 2. Acute ulnar styloid fracture. The patient is status post brace placement by orthopedist. 3. Bilateral knee osteoarthritis status post cortisone injection. 4. Hypokalemia. Continue low-potassium diet. Continue dialysis. 5. Elevated procalcitonin level. Etiology is unclear, . The patient is clinically stable, le s no evidence of infection. We will repeat level. Consider ID evaluation. 6. Volume overload, improving. 7. Mineral bone disorder, continue to monitor calcium and phosphorus levels. 8. Coronary artery disease. Continue current treatment plan. 9. Hypertension. Continue current blood pressure regimen. 10. History of schizoaffective disorder. 11. History of medical noncompliance. 12. Gastrointestinal and deep venous thrombosis prophylaxis. Continue proton pump inhibitor and se quential leg squeezers. DISPOSITION: The patient is awaiting stent placement. Dictated By: CHELSI AGGARWAL/ED Conf#: [id number] DID#: [id number]
[2016-06-19] MEDS: IBUPROFEN 600 MG TAB PO PRN ×2 (11:45→18:03)
[2016-06-19] MEDS: HYDROCODONE/APAP (5/325) TAB PO PRN (20:54)
[2016-06-20] VITALS (9 sets, daily range): BP systolic 114–143; BP diastolic 56–68; PULSE 58–68; RESP 18
--- NOTE | 2016-06-20 04:25 | PN ---
DATE: 06/19/2016 CARDIOLOGY FOLLOWUP SUBJECTIVE: No new cardiac events. No chest pain or pressure. The patient has remained stable. MEDICATIONS: Reviewed. PHYSICAL EXAMINATION: VITAL SIGNS: Temperature 98.1, heart rate of 67, blood pressure 180/80, respiration rate of 16. HEENT: Normocephalic, atraumatic. Pupils are equal. CARDIOVASCULAR: Regular rate and rhythm. PULMONARY: No wheezes. GASTROINTESTINAL: Soft, nontender. EXTREMITIES: No significant edema. LABORATORY: Sodium 138, potassium 4.5, BUN 76, creatinine 0.87, glucose of 106. ASSESSMENT AND PLAN: 1. Congestive heart failure. 2. Renal failure. 3. Hypertension. 4. Knee pain. RECOMMENDATIONS: We will continue with the current cardiac care. Dialysis as per renal. Dictated By: SHABNAM MENG/ED Conf#: [id number] DID#: [id number]
[2016-06-20] MEDS: PANTOPRAZOLE (EC) 40 MG TAB PO SCH ×2 (06:00→07:27)
[2016-06-20 07:51] LABS: ADD SCAN DIFF NO
[2016-06-20 08:14] LABS: BASOPHILS % 0.4 % (0.0-2.0); EOSINOPHILS # 0.2 10^3/ul (0.0-0.5); EOSINOPHILS % 1.9 % (0.0-7.0); HEMATOCRIT 32.6 % (42.0-52.0); HEMOGLOBIN 9.9 g/dl (14.0-18.0); LYMPHOCYTES # 0.9 10^3/ul (0.8-2.9); LYMPHOCYTES % 8.2 % (15.0-51.0); MEAN CORPUSCULAR HEMOGLOBIN 28.9 pg (29.0-33.0); MEAN CORPUSCULAR HGB CONC 30.4 g/dl (32.0-37.0); MEAN PLATELET VOLUME 9.1 fl (7.4-10.4); MONOCYTE # 1.4 10^3/ul (0.3-0.9); MONOCYTES % 12.8 % (0.0-11.0); NEUTROPHIL # 8.2 10^3/ul (1.6-7.5); NEUTROPHILS % 75.1 % (39.0-77.0); PLATELET COUNT 262 10^3/UL (140-415); RED BLOOD COUNT 3.43 10^6/ul (4.70-6.10); RED CELL DISTRIBUTION WIDTH 14.3 % (11.5-14.5); WHITE BLOOD COUNT 10.9 10^3/ul (4.8-10.8)
[2016-06-20] MEDS: SEVELAMER 800 MG TAB PO SCH ×3 (08:14→17:36)
[2016-06-20] MEDS: AMLODIPINE 5 MG TAB PO SCH (08:15)
[2016-06-20 08:19] LABS: CALCIUM 8.8 mg/dl (8.4-10.2); PHOSPHORUS 5.7 mg/dl (2.5-4.9)
[2016-06-20 08:40] LABS: CREATININE 7.13 mg/dl (0.61-1.24)
[2016-06-20 08:42] LABS: POTASSIUM 5.9 mmol/L (3.5-5.1)
--- NOTE | 2016-06-20 09:47 | PN ---
DATE: 06/20/2016 SUBJECTIVE: Yesterday, the patient had hemodialysis with 2.5 L removed. No other acute events note d. No hemoptysis, hematemesis, or hematochezia. The patient's pain is improving. OBJECTIVE: VITAL SIGNS: Blood pressure 130/60, respirations 18, pulse 63, temperature 97.4. HEENT: Head is normocephalic. NECK: Supple. HEART: Regular rate. LUNGS: Show diminished breath sounds at the base. ABDOMEN: Soft, nontender to palpation. No rebound or guarding. EXTREMITIES: Negative for clubbing, cyanosis. No edema. DERMATOLOGIC: No rashes. MUSCULOSKELETAL: Positive tenderness to palpation in his right wrist is improving. NEUROLOGIC: No focal deficits. LABORATORY DATA: Showed sodium 131, potassium 4.9, chloride 96, BUN 80, creatinine 7.13. White cou nt 10.9, hemoglobin 9.9, hematocrit 32.6, and platelet count is 262. ASSESSMENT AND PLAN: 1. End-stage renal disease. The patient had hemodialysis, tolerated it well. The patient, however , repeat renal panel this morning shows hyperkalemia. Unclear if this is a spurious. Will repeat a renal panel. If the patient remains hyperkalemic, will dialyze again for 3 hours on a 2K bath, moncho cium 2.5. 2. Acute ulnar styloid fracture. The patient is status post brace placement. Continue to monitor. 3. Bilateral osteoarthritis status post cortisone injection. 4. Hyperkalemia, etiology may be spurious. Will repeat BNP. Continue low-potassium diet. Will co ntinue low-potassium bath on dialysis. Elevated procalcitonin level, etiology is unclear. This may be spurious. The patient appears clinically stable, no evidence of infection. The patient has a m ild leukocytosis. Will repeat a procalcitonin level. Consider ID evaluation. 5. Volume overload, clinically improving. 6. Mineral bone disorder. Continue to monitor calcium and phosphorus levels. Continue phosphate b inders. 7. Coronary artery disease. Continue current treatment plan. 8. Hypertension. Continue current blood pressure regimen. 9. History of schizoaffective disorder. 10. History of medical noncompliance. 11. Gastrointestinal and deep venous thrombosis prophylaxis. DISPOSITION: The patient is awaiting placement per case finisher. Dictated By: CHELSI AGGARWAL/NTS Conf#: [id number] DID#: [id number]
[2016-06-20 10:52] LABS: POTASSIUM 5.8 mmol/L (3.5-5.1)
[2016-06-20 10:55] LABS: CALCIUM 8.6 mg/dl (8.4-10.2)
[2016-06-20 11:02] LABS: CREATININE 7.21 mg/dl (0.61-1.24)
[2016-06-21] VITALS (14 sets, daily range): BP systolic 102–182; BP diastolic 5–77; PULSE 61–68; RESP 16–20
[2016-06-21] MEDS: PANTOPRAZOLE (EC) 40 MG TAB PO SCH (05:58)
--- NOTE | 2016-06-21 06:58 | PN ---
DATE: 06/20/2016 CARDIOLOGY FOLLOWUP SUBJECTIVE: The patient with no new cardiac complaints. No chest pain or pressure. No palpitation . MEDICATIONS: Reviewed. PHYSICAL EXAMINATION: VITAL SIGNS: Temperature 97.4, heart rate of 63, blood pressure 130/60, respiration rate of 18, sat urating 98%. HEENT: Normocephalic, atraumatic. Pupils are equal. CARDIOVASCULAR: Regular rate and rhythm. PULMONARY: With no wheezes. GASTROINTESTINAL: Soft. EXTREMITIES: No significant edema. NEUROLOGIC: Awake. PSYCH: Appears to be calm. ASSESSMENT AND PLAN: 1. Congestive heart failure/fluid overload, currently significantly improved. 2. Renal failure on dialysis. 3. Hypertension, under control. RECOMMENDATIONS: We will continue current cardiac care. Continue with dialysis. Dictated By: SHABNAM WILSON MD AV/ED Conf#: [id number] DID#: [id number] CC: CHELSI ASIF DO;*EndCC*
[2016-06-21] MEDS: SEVELAMER 800 MG TAB PO SCH ×3 (09:05→17:30)
[2016-06-21] MEDS: AMLODIPINE 5 MG TAB PO SCH (09:07)
[2016-06-21] MEDS: IBUPROFEN 600 MG TAB PO PRN ×2 (09:16→17:30)
--- NOTE | 2016-06-21 10:29 | PN ---
DATE: 06/21/2016 SUBJECTIVE: The patient is stable, no acute events overnight. The patient had hemodialysis yesterd ay, tolerated well. Patient refused blood draw this morning. The patient refused placemen to skill ed nursing facility. OBJECTIVE: VITAL SIGNS: Blood pressure is 182/77, respirations 20, pulse 77, temperature 97.7. HEENT: Head is normocephalic. NECK: Supple. HEART: Regular rate. LUNGS: Show diminished breath sounds at base. ABDOMEN: Soft, nontender to palpation, without rebound or guarding. EXTREMITIES: Negative for clubbing or cyanosis. No edema. DERMATOLOGIC: No rashes. MUSCULOSKELETAL: No joint effusions. NEUROLOGIC: No change in exam. MEDICATIONS: The patient's medications have been reviewed. LABORATORY DATA: From 06/21/2016, is pending. ASSESSMENT AND PLAN: 1. End-stage renal disease. The patient is on dialysis 4-5 times weekly for solute clearance. The patient had hemodialysis given yesterday. The patient appears to be having adequate dialysis clear ance with current Perm-A-Cath. The patient's URR was calculated, which was low at approximately 20% . I spoke with the patient about the need for a Perm-A-Cath replacement as well as to use his AV fi stula, which he is refusing. We will continue to monitor, and continue dialysis as needed. 2. Acute ulnar styloid fracture. The patient is currently in a brace. Continue. 3. Bilateral knee osteoarthritis. The patient is status post cortisone injection. Continue physic al therapy. 4. Hyperkalemia. We will continue renal diet. Continue dialysis on a 2 potassium bath. 5. Volume overload, clinically improving. 6. Mineral bone disorder. Continue to monitor calcium and phosphorus levels. 7. Coronary artery disease. Continue current treatment plan. 8. Hypertension. Continue current blood pressure regimen. Continue ultrafiltration dialysis. 9. History of schizoaffective disorder. 10. History of medical noncompliance. 11. Gastrointestinal and deep venous thrombosis prophylaxis. Continue sequential leg squeezers and proton pump inhibitor. DISPOSITION: Awaiting placement per complex case manager. Dictated By: CHELSI AGGARWAL/ED Conf#: [id number] DID#: [id number]
[2016-06-21 11:11] LABS: ADD SCAN DIFF NO
[2016-06-21 11:32] LABS: BASOPHILS % 0.2 % (0.0-2.0); EOSINOPHILS # 0.2 10^3/ul (0.0-0.5); EOSINOPHILS % 1.4 % (0.0-7.0); HEMATOCRIT 30.3 % (42.0-52.0); HEMOGLOBIN 9.3 g/dl (14.0-18.0); LYMPHOCYTES # 0.7 10^3/ul (0.8-2.9); LYMPHOCYTES % 6.4 % (15.0-51.0); MEAN CORPUSCULAR HGB CONC 30.7 g/dl (32.0-37.0); MEAN CORPUSCULAR VOLUME 94.4 fl (82.0-101.0); MEAN PLATELET VOLUME 8.7 fl (7.4-10.4); MONOCYTE # 1.5 10^3/ul (0.3-0.9); MONOCYTES % 13.9 % (0.0-11.0); NEUTROPHIL # 8.2 10^3/ul (1.6-7.5); NEUTROPHILS % 77.2 % (39.0-77.0); PLATELET COUNT 205 10^3/UL (140-415); RED BLOOD COUNT 3.21 10^6/ul (4.70-6.10); RED CELL DISTRIBUTION WIDTH 14.4 % (11.5-14.5); WHITE BLOOD COUNT 10.7 10^3/ul (4.8-10.8)
[2016-06-21 11:37] LABS: CALCIUM 8.9 mg/dl (8.4-10.2); PHOSPHORUS 5.9 mg/dl (2.5-4.9)
[2016-06-21 11:46] LABS: CREATININE 7.5 mg/dl (0.61-1.24)
[2016-06-21] MEDS ORDERED: LIDOCAINE 1% (MDV) 20 ML INJ ONE (14:36)
[2016-06-21] MEDS ORDERED: HEPARIN 1000 UNITS/ML 10 ML INJ ONE (14:36)
--- NOTE | 2016-06-21 16:14 | RADRPT ---
PROCEDURE: Over the wire exchange of right internal jugular vein tunneled dialysis catheter. CLINICAL INDICATION: Renal failure. The existing dialysis catheter is not functioning. TECHNIQUE: Prior to the procedure, informed consent was obtained. Risks including bleeding, infection, and pneu mothorax were explained to the patient. The patient understood and was willing to proceed. A procedu ral pause was performed. The patient's name, date of , and procedure to be performed were verif ied. The central line was inserted with all elements of maximal sterile barrier technique. All of the fol lowing were used: head covering, facial mask, sterile gown, sterile gloves, a large sterile sheet, h and hygiene, and 2% chlorhexidine for cutaneous antisepsis. The right neck and anterior/superior c hest wall was prepped and draped in usual sterile fashion. Following the local injection of Xylocaine, a scalpel was used to make a 1 cm incision at the site o f the existing right internal jugular vein dialysis catheter. The catheter was then dissected out u sing blunt dissection. The catheter was removed with fluoroscopic guidance over a 0.035-inch Glidew charo guide wire. The new 14.5 Divehi 23 cm long [employer] DuraMax dialysis catheter was advanced over the guide wire. The guidewire was removed. The tip of the catheter was confirmed in position within the upper right atrium. The 2 ports were each flushed with 2.3 ml of 1:1000 heparin. The skin incision was closed with 4-0 V icryl suture The catheter was secured to the skin with 2-0 silk. The site was dressed. The patient tolerated the procedure well. COMPARISON: None. FINDINGS: Final images demonstrate the tip of the catheter in the upper right atrium. A total of 0.3 minutes of fluoroscopy time was used. IMPRESSION: 1. Percutaneous replacement of right internal jugular dialysis tunneled dialysis catheter with fluor oscopic guidance. RPTAT: QQ .Anibal Rosado MD, Date Time Electronically viewed and signed by .Anibal Rosado MD, on 06/21/2016 16:13 .R/
[2016-06-21] MEDS ORDERED: HEPARIN 1000 UNITS/ML 10 ML INJ CATHETER SCH (19:30)
[2016-06-21] MEDS: EPOETIN 10000 UNITS/1 ML INJ (ESRD) SC SCH (22:12)
[2016-06-22 05:37] LABS: ADD SCAN DIFF NO
[2016-06-22 05:49] LABS: BASOPHILS % 0.1 % (0.0-2.0); EOSINOPHILS # 0.1 10^3/ul (0.0-0.5); EOSINOPHILS % 1.4 % (0.0-7.0); HEMOGLOBIN 9.3 g/dl (14.0-18.0); LYMPHOCYTES # 0.6 10^3/ul (0.8-2.9); LYMPHOCYTES % 7.2 % (15.0-51.0); MEAN CORPUSCULAR HEMOGLOBIN 28.9 pg (29.0-33.0); MEAN CORPUSCULAR VOLUME 93.2 fl (82.0-101.0); MEAN PLATELET VOLUME 8.7 fl (7.4-10.4); MONOCYTE # 1.2 10^3/ul (0.3-0.9); MONOCYTES % 13.7 % (0.0-11.0); NEUTROPHIL # 6.6 10^3/ul (1.6-7.5); NEUTROPHILS % 76.3 % (39.0-77.0); PLATELET COUNT 210 10^3/UL (140-415); RED BLOOD COUNT 3.22 10^6/ul (4.70-6.10); RED CELL DISTRIBUTION WIDTH 14.4 % (11.5-14.5); WHITE BLOOD COUNT 8.6 10^3/ul (4.8-10.8)
[2016-06-22 05:58] LABS: POTASSIUM 4.8 mmol/L (3.5-5.1)
[2016-06-22] MEDS: PANTOPRAZOLE (EC) 40 MG TAB PO SCH (06:00)
[2016-06-22 06:01] LABS: CALCIUM 8.8 mg/dl (8.4-10.2); CREATININE 6.86 mg/dl (0.61-1.24)
[2016-06-22 07:51] VITALS: BP 125/61; RESP 18
--- NOTE | 2016-06-22 08:32 | PN ---
DATE: 06/21/2016 CARDIOLOGY FOLLOWUP SUBJECTIVE: No new cardiac event. No chest pain or pressure. MEDICATIONS: Reviewed. PHYSICAL EXAMINATION: VITAL SIGNS: Temperature 97.7, heart rate of 78, blood pressure 143/63, respiratory rate of 20, sat urating 98%. HEENT: Normocephalic, atraumatic. Pupils are equal. CARDIOVASCULAR: Regular rate and rhythm. PULMONARY: No wheezes. GASTROINTESTINAL: Soft, nontender. EXTREMITIES: Trivial edema. NEUROLOGIC: Awake and alert. ASSESSMENT AND PLAN: 1. Congestive heart failure. 2. Renal failure, on dialysis. 3. Fluid overload, treated with dialysis. 4. History of psychiatric disorder. 5. Hypertension. RECOMMENDATIONS: We will continue with the Coreg and clonidine as well as hemodialysis. Dictated By: SHABNAM MENG/ED Conf#: [id number] DID#: [id number] CC: CHELSI ASIF DO;*EndCC*
[2016-06-22] MEDS: SEVELAMER 800 MG TAB PO SCH ×3 (08:40→16:44)
[2016-06-22] MEDS: AMLODIPINE 5 MG TAB PO SCH (08:41)
[2016-06-22] MEDS: IBUPROFEN 600 MG TAB PO PRN (08:44)
--- NOTE | 2016-06-22 08:45 | PN ---
DATE: 06/22/2016 CARDIOLOGY FOLLOWUP SUBJECTIVE: Discussed with the staff. Patient with no chest pain or pressure. No palpitations. MEDICATIONS: Reviewed. PHYSICAL EXAMINATION: VITAL SIGNS: Temperature 97.9, heart rate of 66, blood pressure 125/61, respiratory rate of 18, sat urating 97%. HEENT: Normocephalic, atraumatic. Pupils are equal. CARDIOVASCULAR: Regular rate and rhythm, systolic murmur. PULMONARY: With no wheezes or rhonchi. GASTROINTESTINAL: Soft, nontender. EXTREMITIES: No edema. NEUROLOGIC: Awake and alert. PSYCHIATRIC: Appeared to be calm. LABORATORY: WBC of 8.6, hemoglobin 9.3, platelets of 210. Sodium 135, potassium is 4.8, BUN of 59, creatinine 3.86, glucose 104. ASSESSMENT AND PLAN: 1. Congestive heart failure and fluid overload. Currently controlled with dialysis. 2. Renal failure. On dialysis. 3. Hypertension. Under good control now. 4. Knee arthritis. Status post a cortisone injection. Currently significantly improved. 5. Electrolyte abnormality and hyperkalemia. Currently has improved. 6. History of psychiatric disorder. RECOMMENDATIONS: Will continue with the current cardiac care. Hemodialysis will be continued. Dis charge planning is in process. Dictated By: SHABNAM MENG/ED Conf#: [id number] DID#: [id number] CC: CHELSI ASIF DO;*EndCC*
--- NOTE | 2016-06-22 14:22 | CONS ---
Date/Time of Note Date/Time of Note DATE: 06/22/16 TIME: 14:19 Consult Date/Type/Reason Admit Date/Time Jun 06, 2016 at 14:40 Initial Consult Date 06/05/16 Type of Consultation: neph Subjective The patient is stable, no acute events overnight. The patient on hemodialysis today. The patient refused placement to half-way facility previously OBJECTIVE: HEENT: Head is normocephalic. NECK: Supple. HEART: Regular rate. LUNGS: Show diminished breath sounds at base. ABDOMEN: Soft, nontender to palpation, without rebound or guarding. EXTREMITIES: Negative for clubbing or cyanosis. No edema. DERMATOLOGIC: No rashes. MUSCULOSKELETAL: No joint effusions. NEUROLOGIC: No change in exam. Objective Vital Signs Date Time Temp Pulse Resp B/P Pulse Ox O2 Delivery O2 Flow Rate FiO2 06/22/16 07:51 97.9 66 18 125/61 97 06/21/16 22:07 Room Air Intake and Output 06/21/16 06/21/16 06/22/16 15:00 23:00 07:00 Intake Total 1160 ml 480 ml Output Total 2500 ml Balance -1340 ml 480 ml Results/Medications Result Diagram: 06/22/16 0522 06/22/16 0522 Results 24 hrs Laboratory Tests Test 06/21/16 21:06 06/22/16 05:22 Blood Urea Nitrogen 34 #H 59 H White Blood Count 8.6 Red Blood Count 3.22 L Hemoglobin 9.3 L Hematocrit 30.0 L Mean Corpuscular Volume 93.2 Mean Corpuscular Hemoglobin 28.9 L Mean Corpuscular Hemoglobin Concent 31.0 L Red Cell Distribution Width 14.4 Platelet Count 210 Mean Platelet Volume 8.7 Neutrophils % 76.3 Lymphocytes % 7.2 L Monocytes % 13.7 H Eosinophils % 1.4 Basophils % 0.1 Nucleated Red Blood Cells % 0.0 Neutrophils # 6.6 Lymphocytes # 0.6 L Monocytes # 1.2 H Eosinophils # 0.1 Basophils # 0.0 Nucleated Red Blood Cells # 0.0 Sodium Level 135 Potassium Level 4.8 Chloride Level 95 L Carbon Dioxide Level 26 Anion Gap 19 H Creatinine 6.86 H Glucose Level 104 Calcium Level 8.8 Medications Current Medications Ondansetron HCl (Zofran Inj) 4 mg Q6H PRN IV NAUSEA AND/OR VOMITING; Start at 12:00 Acetaminophen/ Hydrocodone Bitart ([place] (5/325)) 1 tab Q6H PRN PO PAIN Last administered on 06/19/16 20:54; Admin Dose 1 TAB; Start 06/04/16 at 12:00 Pantoprazole (Protonix Tab) 40 mg DAILY@06 PO Last administered on 06/22/16 06: 00; Admin Dose 40 MG; Start 06/06/16 at 06:00 Carvedilol (Coreg) 6.25 mg BID PO Last administered on 06/22/16 08:41; Admin Dose 6.25 MG; Start 06/05/16 at 21:00 Clonidine (Catapres) 0.3 mg QID PO Last administered on 06/22/16 12:32; Admin Dose 0.3 MG; Start 06/06/16 at 21:00 Patient Own Medication 1 ea HS PRN PO INSOMNIA Last administered on 06/06/16 23:30; Admin Dose 1 EA; Start 06/06/16 at 23:30 Amlodipine Besylate (Norvasc) 5 mg DAILY PO Last administered on 06/22/16 08:41 ; Admin Dose 5 MG; Start 06/08/16 at 09:30 Ibuprofen (Motrin) 600 mg Q6H PRN PO pain Last administered on 06/22/16 08:44; Admin Dose 600 MG; Start 06/12/16 at 09:30 Assessment/Plan Chief Complaint/Hosp Course 1. End-stage renal disease. The patient had hemodialysis, tolerated it well. The patient, however, repeat renal panel this morning shows hyperkalemia. Unclear if this is a spurious. Will repeat a renal panel. If the patient remains hyperkalemic, will dialyze again for 3 hours on a 2K bath, calcium 2.5. 2. Acute ulnar styloid fracture. The patient is status post brace placement. Continue to monitor. 3. Bilateral osteoarthritis status post cortisone injection. 4. Hyperkalemia, etiology may be spurious. Will repeat BNP. Continue low- potassium diet. Will continue low-potassium bath on dialysis. Elevated procalcitonin level, etiology is unclear. This may be spurious. The patient appears clinically stable, no evidence of infection. The patient has a mild leukocytosis which has since resolved. Will repeat a procalcitonin level. Consider ID evaluation. 5. Volume overload, clinically improving. 6. Mineral bone disorder. Continue to monitor calcium and phosphorus levels. Continue phosphate binders. 7. Coronary artery disease. Continue current treatment plan. 8. Hypertension. Continue current blood pressure regimen. 9. History of schizoaffective disorder. 10. History of medical noncompliance. 11. Gastrointestinal and deep venous thrombosis prophylaxis. DISPOSITION: The patient is awaiting placement per director of casework services. Problems: SARTHAK PATEL MD Jun 22, 2016 14:22
[2016-06-22 19:53] VITALS: BP 159/70; RESP 20
[2016-06-23] VITALS (11 sets, daily range): BP systolic 106–169; BP diastolic 62–74; PULSE 58–68; RESP 18–20
[2016-06-23] MEDS: PANTOPRAZOLE (EC) 40 MG TAB PO SCH (05:48)
[2016-06-23] MEDS: IBUPROFEN 600 MG TAB PO PRN (05:51)
[2016-06-23] MEDS: SEVELAMER 800 MG TAB PO SCH ×3 (08:20→17:43)
[2016-06-23] MEDS: AMLODIPINE 5 MG TAB PO SCH (08:25)
[2016-06-23] MEDS ORDERED: HEPARIN 1000 UNITS/ML 10 ML INJ CATHETER ONE (11:30)
[2016-06-23 11:49] LABS: CALCIUM 8.4 mg/dl (8.4-10.2); CREATININE 6.39 mg/dl (0.61-1.24); POTASSIUM 4.1 mmol/L (3.5-5.1)
[2016-06-23] MEDS: HYDROCODONE/APAP (5/325) TAB PO PRN (13:45)
--- NOTE | 2016-06-23 14:15 | PN ---
Date/Time of Note Date/Time of Note DATE: 06/23/16 TIME: 14:13 Assessment/Plan VTE Prophylaxis VTE Prophylaxis Intervention: other Lines/Catheters IV Catheter Type (from [facility]): Permacath Urinary Cath still in place: No Assessment/Plan Assessment/Plan 1. End-stage renal disease. will dialyze in am for 3 hours on a 2K bath, calcium 2.5. 2. Acute ulnar styloid fracture. The patient is status post brace placement. Continue to monitor. 3. Bilateral osteoarthritis status post cortisone injection. 4. Hyperkalemia, resolved 5. Volume overload, clinically improving. 6. Mineral bone disorder. Continue to monitor calcium and phosphorus levels. Continue phosphate binders. 7. Coronary artery disease. Continue current treatment plan. 8. Hypertension. Continue current blood pressure regimen. 9. History of schizoaffective disorder. 10. History of medical noncompliance. 11. Gastrointestinal and deep venous thrombosis prophylaxis. Subjective 24 Hr Interval Summary Free Text/Dictation The patient is stable, no acute events overnight. last hd was yesterday. The patient refused placement to group home facility previously OBJECTIVE: HEENT: Head is normocephalic. NECK: Supple. HEART: Regular rate. LUNGS: Show diminished breath sounds at base. ABDOMEN: Soft, nontender to palpation, without rebound or guarding. EXTREMITIES: Negative for clubbing or cyanosis. No edema. DERMATOLOGIC: No rashes. MUSCULOSKELETAL: No joint effusions. NEUROLOGIC: No change in exam. Exam/Review of Systems Vital Signs Vitals Vital Signs Date Time Temp Pulse Resp B/P Pulse Ox O2 Delivery O2 Flow Rate FiO2 06/23/16 11:30 65 06/23/16 10:30 16 06/23/16 07:21 97.6 150/70 98 06/21/16 22:07 Room Air Intake and Output 06/22/16 06/22/16 06/23/16 15:00 23:00 07:00 Intake Total 840 ml 200 ml Balance 840 ml 200 ml Results Result Diagram: 06/22/16 0522 06/23/16 1120 Results 24 hrs Laboratory Tests Test 06/23/16 11:20 Sodium Level 133 L Potassium Level 4.1 Chloride Level 98 Carbon Dioxide Level 22 Anion Gap 17 H Blood Urea Nitrogen 66 H Creatinine 6.39 H Glucose Level 156 Calcium Level 8.4 Medications Medications Current Medications Ondansetron HCl (Zofran Inj) 4 mg Q6H PRN IV NAUSEA AND/OR VOMITING; Start at 12:00 Acetaminophen/ Hydrocodone Bitart ([place] (5/325)) 1 tab Q6H PRN PO PAIN Last administered on 06/23/16 13:45; Admin Dose 1 TAB; Start 06/04/16 at 12:00 Pantoprazole (Protonix Tab) 40 mg DAILY@06 PO Last administered on 06/23/16 05: 48; Admin Dose 40 MG; Start 06/06/16 at 06:00 Carvedilol (Coreg) 6.25 mg BID PO Last administered on 06/23/16 08:22; Admin Dose 6.25 MG; Start 06/05/16 at 21:00 Clonidine (Catapres) 0.3 mg QID PO Last administered on 06/23/16 08:21; Admin Dose 0.3 MG; Start 06/06/16 at 21:00 Patient Own Medication 1 ea HS PRN PO INSOMNIA Last administered on 06/06/16 23:30; Admin Dose 1 EA; Start 06/06/16 at 23:30 Amlodipine Besylate (Norvasc) 5 mg DAILY PO Last administered on 06/22/16 08:41 ; Admin Dose 5 MG; Start 06/08/16 at 09:30 Ibuprofen (Motrin) 600 mg Q6H PRN PO pain Last administered on 06/23/16 05:51; Admin Dose 600 MG; Start 06/12/16 at 09:30 DADA ALLEN DO Jun 23, 2016 14:15
--- NOTE | 2016-06-23 15:16 | PN ---
DATE: 06/23/2016 CARDIOLOGY FOLLOWUP SUBJECTIVE: Discussed with the staff. Rhythm strip reviewed. The patient with no chest pain or pr essure. No palpitation. Denies PND, orthopnea or dyspnea to me. Dialysis was done and tolerated i t well. Discussed with the dialysis nurse as well. MEDICATIONS: Reviewed. PHYSICAL EXAMINATION: VITAL SIGNS: Temperature 97.6, heart rate of 65, blood pressure 150/70, respiratory rate of 20. HEENT: Normocephalic, atraumatic. Thin gentleman in no acute distress. Pupils are equal. CHEST: dialysis access. CARDIOVASCULAR: Regular rate and rhythm. PULMONARY: With no wheezes. GASTROINTESTINAL: Soft, nontender. EXTREMITIES: No significant edema. NEUROLOGIC: Awake, responds appropriately. LABORATORY DATA: Sodium 133, potassium 4.1, BUN of 66, creatinine 6.39, glucose 159. ASSESSMENT AND PLAN: 1. Renal failure, on dialysis. 2. Congestive heart failure/fluid overload secondary to renal failure, currently stable. 3. Hyperkalemia has been corrected with dialysis. 4. Hypertension, under good control. 5. Status post ulnar styloid fracture, improved with brace. 6. Severe bilateral knee arthritis, status post injection, currently improved. RECOMMENDATIONS: We will continue with the current cardiac care. Dialysis as per renal. Discharge planning is in process. Coreg will be continued. Dictated By: SHABNAM MENG/ED Conf#: [id number] DID#: [id number] CC: CHELSI ASIF DO;*EndCC*
[2016-06-23] MEDS: EPOETIN 10000 UNITS/1 ML INJ (ESRD) SC SCH (17:45)
[2016-06-24] VITALS (7 sets, daily range): BP systolic 122–171; BP diastolic 63–77; PULSE 64–66; RESP 20
[2016-06-24] MEDS: PANTOPRAZOLE (EC) 40 MG TAB PO SCH (05:57)
[2016-06-24] MEDS: AMLODIPINE 5 MG TAB PO SCH (08:27)
[2016-06-24] MEDS: SEVELAMER 800 MG TAB PO SCH ×3 (08:27→17:30)
[2016-06-24] MEDS: IBUPROFEN 600 MG TAB PO PRN ×2 (08:35→20:19)
--- NOTE | 2016-06-24 10:20 | CONS ---
Date/Time of Note Date/Time of Note DATE: 06/24/16 TIME: 10:19 Consult Date/Type/Reason Admit Date/Time Jun 06, 2016 at 14:40 Initial Consult Date 06/05/16 Type of Consultation: neph Subjective The patient is stable, no acute events overnight. on hd today. The patient refused placement to [facility] facility previously OBJECTIVE: HEENT: Head is normocephalic. NECK: Supple. HEART: Regular rate. LUNGS: Show diminished breath sounds at base. ABDOMEN: Soft, nontender to palpation, without rebound or guarding. EXTREMITIES: Negative for clubbing or cyanosis. No edema. DERMATOLOGIC: No rashes. MUSCULOSKELETAL: No joint effusions. NEUROLOGIC: No change in exam. Objective Vital Signs Date Time Temp Pulse Resp B/P Pulse Ox O2 Delivery O2 Flow Rate FiO2 06/24/16 08:16 98.1 60 20 159/76 96 06/21/16 22:07 Room Air Intake and Output 06/23/16 06/23/16 06/24/16 15:00 23:00 07:00 Intake Total 400 ml 600 ml 500 ml Output Total 2500 ml 2500 ml Balance -2100 ml 600 ml -2000 ml Results/Medications Result Diagram: 06/22/16 0522 06/23/16 1120 Results 24 hrs Laboratory Tests Test 06/23/16 11:20 Sodium Level 133 L Potassium Level 4.1 Chloride Level 98 Carbon Dioxide Level 22 Anion Gap 17 H Blood Urea Nitrogen 66 H Creatinine 6.39 H Glucose Level 156 Calcium Level 8.4 Medications Current Medications Ondansetron HCl (Zofran Inj) 4 mg Q6H PRN IV NAUSEA AND/OR VOMITING; Start at 12:00 Acetaminophen/ Hydrocodone Bitart ([place] (5/325)) 1 tab Q6H PRN PO PAIN Last administered on 06/23/16 13:45; Admin Dose 1 TAB; Start 06/04/16 at 12:00 Pantoprazole (Protonix Tab) 40 mg DAILY@06 PO Last administered on 06/24/16 05: 57; Admin Dose 40 MG; Start 06/06/16 at 06:00 Carvedilol (Coreg) 6.25 mg BID PO Last administered on 06/24/16 08:27; Admin Dose 6.25 MG; Start 06/05/16 at 21:00 Clonidine (Catapres) 0.3 mg QID PO Last administered on 06/24/16 08:26; Admin Dose 0.3 MG; Start 06/06/16 at 21:00 Patient Own Medication 1 ea HS PRN PO INSOMNIA Last administered on 06/06/16 23:30; Admin Dose 1 EA; Start 06/06/16 at 23:30 Amlodipine Besylate (Norvasc) 5 mg DAILY PO Last administered on 06/24/16 08:27 ; Admin Dose 5 MG; Start 06/08/16 at 09:30 Ibuprofen (Motrin) 600 mg Q6H PRN PO pain Last administered on 06/24/16 08:35; Admin Dose 600 MG; Start 06/12/16 at 09:30 Assessment/Plan Chief Complaint/Hosp Course 1. End-stage renal disease. The patient had hemodialysis, tolerated it well. 2. Acute ulnar styloid fracture. The patient is status post brace placement. Continue to monitor. 3. Bilateral osteoarthritis status post cortisone injection. 4. Hyperkalemia, etiology may be spurious. Continue low-potassium diet. Will continue low-potassium bath on dialysis. Elevated procalcitonin level, etiology is unclear. This may be spurious. The patient appears clinically stable, no evidence of infection. The patient has a mild leukocytosis which has since resolved. 5. Volume overload, clinically improving. 6. Mineral bone disorder. Continue to monitor calcium and phosphorus levels. Continue phosphate binders. 7. Coronary artery disease. Continue current treatment plan. 8. Hypertension. Continue current blood pressure regimen. 9. History of schizoaffective disorder. 10. History of medical noncompliance. 11. Gastrointestinal and deep venous thrombosis prophylaxis. DISPOSITION: The patient is awaiting placement per case advocate. Problems: SARTHAK PATEL MD Jun 24, 2016 10:20
--- NOTE | 2016-06-24 14:56 | PN ---
DATE: 06/24/2016 CARDIOLOGY FOLLOWUP SUBJECTIVE: The patient denies any chest pain or pressure to me. Denies any palpitations to me. Denies any shortness of breath, PND, orthopnea. MEDICATIONS: Reviewed. PHYSICAL EXAMINATION: VITAL SIGNS: Temperature 98.1, heart rate of 60, blood pressure 159/76, respiratory rate of 20, sat urating 96%. HEENT: Normocephalic, atraumatic. Thin gentleman in no acute distress. Pupils equal and round. CARDIOVASCULAR: Regular rate and rhythm, systolic murmur. PULMONARY: With no wheezes anteriorly. GASTROINTESTINAL: Soft, nontender. EXTREMITIES: With no significant lower extremity edema. NEUROLOGIC: Awake, responds appropriately. PSYCHIATRIC: Appears to be calm now. ASSESSMENT AND PLAN: 1. Congestive heart failure/fluid overload secondary to renal failure and fluid overload with dialysis, currently has improved. 2. Renal failure, on dialysis. 3. Status post ulnar styloid fracture in brace, currently remains stable. 4. Osteoarthritis of the knees, status post injection, currently improved. 5. Hyperkalemia, currently improved with aggressive dialysis. 6. Hypertension, currently stable with the current regimen. 7. Schizoaffective disorder, currently stable. RECOMMENDATIONS: We will continue with the current cardiac care. Dialysis will be continued. Disc harge planning is in process. Dictated By: SHABNAM MENG/ED Conf#: [id number] DID#: [id number] CC: SARTHAK PATEL MD;*EndCC*
[2016-06-24] MEDS: EPOETIN 10000 UNITS/1 ML INJ (ESRD) SC SCH (19:10)
[2016-06-25] MEDS: PANTOPRAZOLE (EC) 40 MG TAB PO SCH (05:59)
[2016-06-25 07:44] VITALS: BP 147/66; RESP 18
[2016-06-25] MEDS: SEVELAMER 800 MG TAB PO SCH ×3 (08:22→16:59)
[2016-06-25] MEDS: AMLODIPINE 5 MG TAB PO SCH (08:23)
[2016-06-25] MEDS: IBUPROFEN 600 MG TAB PO PRN (08:24)
--- NOTE | 2016-06-25 11:30 | CONS ---
Date/Time of Note Date/Time of Note DATE: 06/25/16 TIME: 11:28 Consult Date/Type/Reason Admit Date/Time Jun 06, 2016 at 14:40 Initial Consult Date 06/05/16 Type of Consultation: neph Subjective The patient is stable, no acute events overnight. on hd yesterday. The patient refused placement to [facility] facility previously OBJECTIVE: HEENT: Head is normocephalic. NECK: Supple. HEART: Regular rate. LUNGS: Show diminished breath sounds at base. ABDOMEN: Soft, nontender to palpation, without rebound or guarding. EXTREMITIES: Negative for clubbing or cyanosis. No edema. DERMATOLOGIC: No rashes. MUSCULOSKELETAL: No joint effusions. NEUROLOGIC: No change in exam. Objective Vital Signs Date Time Temp Pulse Resp B/P Pulse Ox O2 Delivery O2 Flow Rate FiO2 06/25/16 07:44 98.6 64 18 147/66 96 06/21/16 22:07 Room Air Intake and Output 06/24/16 06/24/16 06/25/16 15:00 23:00 07:00 Intake Total 960 ml Balance 960 ml Results/Medications Result Diagram: 06/22/16 0522 06/23/16 1120 Medications Current Medications Ondansetron HCl (Zofran Inj) 4 mg Q6H PRN IV NAUSEA AND/OR VOMITING; Start at 12:00 Acetaminophen/ Hydrocodone Bitart ([place] (5/325)) 1 tab Q6H PRN PO PAIN Last administered on 06/23/16 13:45; Admin Dose 1 TAB; Start 06/04/16 at 12:00 Pantoprazole (Protonix Tab) 40 mg DAILY@06 PO Last administered on 06/25/16 05: 59; Admin Dose 40 MG; Start 06/06/16 at 06:00 Carvedilol (Coreg) 6.25 mg BID PO Last administered on 06/25/16 08:23; Admin Dose 6.25 MG; Start 06/05/16 at 21:00 Clonidine (Catapres) 0.3 mg QID PO Last administered on 06/25/16 08:22; Admin Dose 0.3 MG; Start 06/06/16 at 21:00 Patient Own Medication 1 ea HS PRN PO INSOMNIA Last administered on 06/06/16 23:30; Admin Dose 1 EA; Start 06/06/16 at 23:30 Amlodipine Besylate (Norvasc) 5 mg DAILY PO Last administered on 06/25/16 08:23 ; Admin Dose 5 MG; Start 06/08/16 at 09:30 Ibuprofen (Motrin) 600 mg Q6H PRN PO pain Last administered on 06/25/16 08:24; Admin Dose 600 MG; Start 06/12/16 at 09:30 Assessment/Plan Chief Complaint/Hosp Course 1. End-stage renal disease. The patient had hemodialysis, tolerated it well. 2. Acute ulnar styloid fracture. The patient is status post brace placement. Continue to monitor. 3. Bilateral osteoarthritis status post cortisone injection. 4. Hyperkalemia, etiology may be spurious. Continue low-potassium diet. Will continue low-potassium bath on dialysis. Elevated procalcitonin level, etiology is unclear. This may be spurious. The patient appears clinically stable, no evidence of infection. The patient has a mild leukocytosis which has since resolved. 5. Volume overload, clinically improving. 6. Mineral bone disorder. Continue to monitor calcium and phosphorus levels. Continue phosphate binders. 7. Coronary artery disease. Continue current treatment plan. 8. Hypertension. Continue current blood pressure regimen. 9. History of schizoaffective disorder. 10. History of medical noncompliance. 11. Gastrointestinal and deep venous thrombosis prophylaxis. DISPOSITION: The patient is awaiting placement per onsite case manager. refuses snf. has previously stayed in hotels and may be homeless currently. cm to give numbers to homeless shelters and will try to get him to dispo. Problems: SARTHAK PATEL MD Jun 25, 2016 11:29
--- NOTE | 2016-06-25 16:32 | PN ---
DATE: 06/25/2016 CARDIOLOGY FOLLOWUP SUBJECTIVE: No new cardiac event. No chest pain or pressure. MEDICATIONS: Reviewed. PHYSICAL EXAMINATION: VITAL SIGNS: Temperature 98.6, heart rate of 64, blood pressure 147/66, respiratory rate of 18. HEENT: Normocephalic, atraumatic. Thin gentleman in no acute distress. Pupils are equal. CARDIOVASCULAR: Regular rate and rhythm. PULMONARY: With no wheezes. GASTROINTESTINAL: Soft. EXTREMITIES: No significant edema. ASSESSMENT AND PLAN: 1. Congestive heart failure secondary to fluid overload. 2. Hypertension. 3. Renal failure on dialysis. RECOMMENDATIONS: We will continue with hemodialysis. Dictated By: SHABNAM WILSON MD AV/NTS Conf#: [id number] DID#: [id number] CC: SARTHAK PATEL MD;*EndCC*
[2016-06-25 20:00] VITALS: BP 155/71; PULSE 60; RESP 18
[2016-06-25] MEDS: HYDROCODONE/APAP (5/325) TAB PO PRN (21:39)
[2016-06-26] MEDS: PANTOPRAZOLE (EC) 40 MG TAB PO SCH (06:23)
--- NOTE | 2016-06-26 07:37 | PN ---
DATE: 06/26/2016 CARDIOLOGY FOLLOWUP SUBJECTIVE: No new cardiac event. No chest pain or pressure. Breathing has remained stable. No P ND or abnormality. MEDICATIONS: Reviewed. OBJECTIVE: VITAL SIGNS: Temperature 97.6, heart rate of 60, blood pressure 155/71, respiration rate 18, satura ting 98%. HEENT: Normocephalic, atraumatic. Thin gentleman in no acute distress. CARDIOVASCULAR: Regular rate and rhythm. PULMONARY: With no wheezes anteriorly. GASTROINTESTINAL: Soft. No rebound or guarding. EXTREMITIES: No significant edema. NEUROLOGIC: Awake, responds appropriately. ASSESSMENT AND PLAN: 1. Congestive heart failure secondary to diastolic dysfunction and fluid overload. 2. Renal failure on dialysis. 3. Hypertension. RECOMMENDATIONS: We will continue with the Coreg. Continue blood pressure medication. Dialysis wi ll be continued. Dictated By: SHABNAM MENG/ED Conf#: [id number] DID#: [id number]
[2016-06-26 07:42] VITALS: BP 146/65; RESP 18
[2016-06-26] MEDS: AMLODIPINE 5 MG TAB PO SCH (08:22)
[2016-06-26] MEDS: SEVELAMER 800 MG TAB PO SCH ×2 (08:22→12:13)
[2016-06-26] MEDS: IBUPROFEN 600 MG TAB PO PRN (08:25)
--- NOTE | 2016-06-26 09:34 | PN ---
DATE: 06/26/2016 SUBJECTIVE: The patient is stable. Patient states he wants to leave today may leave against medica l advice. I have instructed the patient that he should stay in the hospital until full placement is found. The patient is scheduled for hemodialysis today. No other events noted. OBJECTIVE: VITAL SIGNS: Blood pressure 146/65, respiration 18, pulse 60, temperature 97.6. HEENT: Head is normocephalic. NECK: Supple. HEART: Regular rate. LUNGS: Show diminished breath sounds at the base. ABDOMEN: Soft, nontender to palpation without rebound or guarding. EXTREMITIES: Negative for clubbing, cyanosis, no edema. DERMATOLOGIC: No rashes. MUSCULOSKELETAL: No joint effusions. NEUROLOGIC: No change in exam. MEDICATIONS: The patient's medications have been reviewed. LABORATORY DATA: Has been reviewed. No new labs. ASSESSMENT AND PLAN: 1. End-stage renal disease. The patient is currently on dialysis 3 to 4 times weekly. Plan for di alysis today for 3 hours on 3 K bath, calcium 2.5. 2. Access. The patient's Perm-A-Cath was exchanged. Currently having improved solute clearance. We will continue to monitor. 3. Acute ulnar styloid fracture. The patient is currently in a brace, continue. 4. Bilateral knee osteoarthritis. The patient is status post cortisone injection. Continue physic al therapy. 5. Volume overload, clinically improved. 6. Mineral bone disorder. Continue to monitor calcium and phosphorus levels. 7. Coronary artery disease. Continue current treatment plan. 8. Hypertension. Continue current blood pressure regimen. 9. History of schizoaffective disorder. 10. History of medical noncompliance. 11. Gastrointestinal and deep venous thrombosis prophylaxis. Continue sequential leg squeezers and proton pump inhibitor. DISPOSITION: The patient is awaiting placement per telehealth case manager. The patient is refusing all SNF a nd is currently homeless. He states he wants to go to a hotel; however, he has no actual funds at t his time. Dictated By: CHELSI AGGARWAL/ED Conf#: [id number] DID#: [id number]
[2016-06-26] MEDS: HYDROCODONE/APAP (5/325) TAB PO PRN (12:15)
--- NOTE | 2016-06-27 11:15 | DS ---
DATE OF ADMISSION: 06/06/2016 DATE OF DISCHARGE: 06/26/2016 Please note the patient left AMA. HISTORY OF PRESENT ILLNESS: This is a 70-year-old male with a past medical history of end-stage r enal disease, history of medical noncompliance, who presented to [facility] with w eakness, swelling of his lower legs. The patient upon arrival in the emergency room had a chest x- ray which showed pleural effusion, findings consistent with CHF. The patient was subsequently broug ht in and admitted to telemetry for evaluation. In terms of the patient's heart failure and pleura l effusion, he was seen by multiple resaw operator, Dr. Munoz and adjunct political science instructor, . Etiology was hea rt failure was due to noncompliance with hemodialysis. The patient after being aggressively dialyze d had clinical improvement of his heart failure. The patient also on admission noted to have pain i n his right wrist, had an x-ray which showed evidence of acute styloid fracture, was seen by Dr. Vidal , orthopedist and placed in a brace. The patient also had bilateral knee pain, had x-rays which julian wed evidence of osteoarthritis. The patient was given steroid injection with clinical improvement. The patient also during the course of his hospital stay had to have exchange of his Perm-A-Cath as he was having high arterial pressures and inadequate dialysis. The patient's adequacy of dialysis improved after exchange of his Perm-A-Cath. Patient also during the hospital course was noted to be extremely noncompliant with medical management. The [facility] The patient subsequently left AMA. DISCHARGE DIAGNOSES: 1. End-stage renal disease. 2. Acute ulnar styloid fracture. 3. Bilateral knee osteoarthritis. 4. History of congestive heart failure. 5. Mineral bone disorder. 6. Pleural effusion. 7. Hypertension. 8. History of schizoaffective disorder. 9. History of medical noncompliance. 10. Coronary artery disease. FINAL MEDICATIONS: Please note patient left AMA. Dictated By: CHELSI AGGARWAL/NTS Conf#: [id number] DID#: [id number]
== END 2016-06-26 12:20 | disposition left against medical advice (07) | DRG 252 ==
LOC: E/R 05:31 → TEL 07:40 → OBSVTOIN 06-06 14:40 → TEL 06-07 18:40 → MS2 06-09 18:45
PROVIDERS: ADMIT Internal Medicine; ATTEND Internal Medicine
PROC: 3E0U33Z Introduction of Anti-inflammatory into Joints, Percutaneous Approach (ICD-10-PCS; 2016-06-06)
PROC: 3E0U3BZ Introduction of Anesthetic Agent into Joints, Percutaneous Approach (ICD-10-PCS; 2016-06-06)
PROC: 5A1D60Z (ICD-10-PCS; 2016-06-06)
PROC: 02H633Z Insertion of Infusion Device into Right Atrium, Percutaneous Approach (ICD-10-PCS; principal; 2016-06-21)
PROC: 05PY03Z Removal of Infusion Device from Upper Vein, Open Approach (ICD-10-PCS; 2016-06-21)
DX: I13.2 Hypertensive heart and chronic kidney disease with heart failure and with stage 5 chronic kidney disease, or end stage renal disease (principal); N18.6 End stage renal disease; I27.2 Other secondary pulmonary hypertension; E83.9 Disorder of mineral metabolism, unspecified; E87.5 Hyperkalemia; I50.33 Acute on chronic diastolic (congestive) heart failure; S52.614A Nondisplaced fracture of right ulna styloid process, initial encounter for closed fracture; Z91.15 Patient's noncompliance with renal dialysis; I25.10 Atherosclerotic heart disease of native coronary artery without angina pectoris; D63.1 Anemia in chronic kidney disease; X58.XXXA Exposure to other specified factors, initial encounter; Y92.238 Other place in hospital as the place of occurrence of the external cause; F25.9 Schizoaffective disorder, unspecified; M17.0 Bilateral primary osteoarthritis of knee; Z99.2 Dependence on renal dialysis
CPT/HCPCS: 36581; 71010; 73090; 80048; 80053; 83735; 83880; 84100; 84145; 84436; 84443; 84479; 84484; 84520; 85025; 88300; 90935; 93005; 93306; 97116; 97530; G0378; J0702; J0886; J1580; J1644; J2997

== ENCOUNTER 2016-11-12 20:27 | Inpatient (IN) | payer MEDICARE, OTHER ==
[~2016-11-12] VITALS: Ht 172.7 cm; Wt 90.0 kg
[~2016-11-12 20:27] MED LIST changes: -IBUP-1542 PO; +MELA1TAB9 PO
[2016-11-12 20:30] VITALS: Ht 172.7 cm; Wt 90.0 kg
[2016-11-12] MEDS ORDERED: HYDROmorphONE 2 MG/ML SYG IM STA (20:32)
[2016-11-12] MEDS ORDERED: ONDANSETRON (ODT) 4 MG TAB ODT STA (20:32)
--- NOTE | 2016-11-12 22:26 | RADRPT ---
PROCEDURE: XR Right Tibia and Fibula. CLINICAL INDICATION: Trauma. Right lower leg pain. TECHNIQUE: Two views. Frontal and lateral. COMPARISON: No prior studies are available for comparison. FINDINGS: There is an acute comminuted fracture of the lateral malleolus and an acute transverse fracture of t he medial malleolus. There is no other fracture and there is no dislocation. Vascular calcifications are present consistent with atherosclerosis. There is soft tissue swelling overlying the fractures. Articular surfaces are intact. There is no lytic or blastic lesion. There is no radiopaque foreign body. IMPRESSION: 1. Acute fractures of the medial and lateral malleoli with overlying soft tissue swelling. 2. Atherosclerosis. RPTAT: QQ .Anibal Rosado MD, MD Date Time Electronically viewed and signed by .Anibal Rosado MD, on 11/12/2016 22:26 .R/
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
[2016-11-13] VITALS (10 sets, daily range): BP systolic 98–163; BP diastolic 46–75; PULSE 98–105; RESP 16–22
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
[2016-11-13] MEDS ORDERED: ACETAMINOPHEN 325 MG TAB PO PRN ×3 (01:00→03:00)
[2016-11-13] MEDS ORDERED: ONDANSETRON 4 MG INJ IV PRN ×3 (01:00→03:00)
[2016-11-13] MEDS ORDERED: NACL 0.9% 3 ML SYG IV SCH ×2 (01:00→03:00)
[2016-11-13] MEDS ORDERED: HYDROCODONE/APAP (5/325) TAB PO PRN ×3 (01:00→03:00)
[2016-11-13] MEDS ORDERED: DOCUSATE SODIUM 100 MG CAP PO PRN (01:00)
[2016-11-13] MEDS ORDERED: ZOLPIDEM 5 MG TAB PO PRN (01:00)
[2016-11-13 01:18] LABS: BASOPHILS % 0.2 % (0.0-2.0); EOSINOPHILS % 0.2 % (0.0-7.0); HEMATOCRIT 36.2 % (42.0-52.0); HEMOGLOBIN 11.2 g/dl (14.0-18.0); LYMPHOCYTES # 0.7 10^3/ul (0.8-2.9); LYMPHOCYTES % 4.6 % (15.0-51.0); MEAN CORPUSCULAR HEMOGLOBIN 29.2 pg (29.0-33.0); MEAN CORPUSCULAR HGB CONC 30.9 g/dl (32.0-37.0); MEAN CORPUSCULAR VOLUME 94.3 fl (82.0-101.0); MEAN PLATELET VOLUME 9.3 fl (7.4-10.4); MONOCYTE # 1.2 10^3/ul (0.3-0.9); MONOCYTES % 8.2 % (0.0-11.0); NEUTROPHILS % 85.7 % (39.0-77.0); PLATELET COUNT 272 10^3/UL (140-415); RED BLOOD COUNT 3.84 10^6/ul (4.70-6.10); WHITE BLOOD COUNT 14.9 10^3/ul (4.8-10.8)
[2016-11-13 01:33] LABS: INR 1.08; PT RATIO 1.1
[2016-11-13 01:34] LABS: PARTIAL THROMBOPLASTIN TIME 27.5 Sec (25.0-35.0)
[2016-11-13 01:35] LABS: ALBUMIN 3.7 g/dl (3.3-4.9); ALBUMIN/GLOBULIN RATIO 0.86; CALCIUM 9.6 mg/dl (8.4-10.2); CREATININE 7.38 mg/dl (0.61-1.24); POTASSIUM 5.2 mmol/L (3.5-5.1)
[2016-11-13 01:47] LABS: TROPONIN-I 0.097 ng/ml (0.00-0.12)
[2016-11-13] MEDS: DOCUSATE SODIUM 100 MG CAP PO SCH ×2 (03:00→15:39)
[2016-11-13] MEDS: HYDROmorphONE 1 MG/ML SYG IV PRN ×2 (03:47→15:39)
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
[2016-11-13] MEDS: HEPARIN 5,000 UNIT/0.5 ML VIAL SC SCH ×2 (09:27→21:19)
[2016-11-13] MEDS: HYDROCODONE/APAP (5/325) TAB PO PRN (09:30)
--- NOTE | 2016-11-13 09:54 | CONS ---
Date/Time of Note Date/Time of Note DATE: 11/13/16 TIME: 09:52 Consultation Date/Type/Reason Admit Date/Time Nov 13, 2016 at 00:36 Date of Consultation: Nov 13, 2016 Type of Consultation: ID Reason for Consultation Antibiotic management Social History Smoking Status: Never smoker Exam/Review of Systems Vital Signs Vitals Vital Signs Date Time Temp Pulse Resp B/P Pulse Ox O2 Delivery O2 Flow Rate FiO2 11/13/16 08:01 98.5 96 20 141/64 96 11/13/16 05:30 Nasal Cannula 2.0 Results Result Diagram: 11/13/16 0030 11/13/16 0030 Results 24 hrs Laboratory Tests Test 11/13/16 00:30 White Blood Count 14.9 #H Red Blood Count 3.84 L Hemoglobin 11.2 #L Hematocrit 36.2 #L Mean Corpuscular Volume 94.3 Mean Corpuscular Hemoglobin 29.2 Mean Corpuscular Hemoglobin Concent 30.9 L Red Cell Distribution Width 16.0 H Platelet Count 272 # Mean Platelet Volume 9.3 Neutrophils % 85.7 H Lymphocytes % 4.6 L Monocytes % 8.2 Eosinophils % 0.2 Basophils % 0.2 Nucleated Red Blood Cells % 0.0 Neutrophils # (Manual) 12.8 H Lymphocytes # 0.7 L Monocytes # 1.2 H Eosinophils # 0.0 Basophils # 0.0 Nucleated Red Blood Cells # 0.0 Prothrombin Time 14.0 Prothrombin Time Ratio 1.1 INR International Normalized Ratio 1.08 Activated Partial Thromboplast Time 27.5 Sodium Level 142 Potassium Level 5.2 H Chloride Level 104 Carbon Dioxide Level 21 Anion Gap 22 H Blood Urea Nitrogen 70 H Creatinine 7.38 H Glucose Level 101 Calcium Level 9.6 Total Bilirubin 0.0 L Direct Bilirubin 0.00 Indirect Bilirubin 0.0 Aspartate Amino Transf (AST/SGOT) 64 H Alanine Aminotransferase (ALT/SGPT) 51 Alkaline Phosphatase 193 H Troponin I 0.097 Total Protein 8.0 Albumin 3.7 Globulin 4.30 H Albumin/Globulin Ratio 0.86 Lipase 354 H Medications Medications Current Medications Ondansetron HCl (Zofran Inj) 4 mg Q6H PRN IV NAUSEA AND/OR VOMITING; Start at 01:00 Acetaminophen (Tylenol Tab) 650 mg Q6H PRN PO PAIN LEVEL 1-3 OR FEVER; Start at 01:00 Acetaminophen/ Hydrocodone Bitart ([place] (5/325)) 1 tab Q6H PRN PO MODERATE PAIN LEVEL 4-6; Start 11/13/16 at 01:00 Docusate Sodium (Colace) 100 mg Q12H PRN PO CONSTIPATION; Start 11/13/16 at 01: 00 Zolpidem Tartrate (Ambien) 5 mg QHS PRN PO SLEEP; Start 11/13/16 at 01:00 Carvedilol (Coreg) 3.125 mg BID PO ; Start 11/13/16 at 09:00 Clonidine (Catapres) 0.4 mg QID PO ; Start 11/13/16 at 09:00 Acetaminophen/ Hydrocodone Bitart ([place] (5/325)) 1 tab Q6H PRN PO PAIN; Start 11/13/16 at 01:00 Ondansetron HCl (Zofran Inj) 4 mg Q6H PRN IV NAUSEA AND/OR VOMITING; Start at 03:00 Acetaminophen (Tylenol Tab) 650 mg Q6H PRN PO PAIN LEVEL 1-3 OR FEVER; Start at 03:00 Acetaminophen/ Hydrocodone Bitart ([place] (5/325)) 1 tab Q6H PRN PO MODERATE PAIN LEVEL 4-6; Start 11/13/16 at 03:00 Acetaminophen/ Hydrocodone Bitart ([place] (5/325)) 2 tab Q6H PRN PO SEVERE PAIN LEVEL 7-10 Last administered on 11/13/16 09:30; Admin Dose 2 TAB; Start at 03:00 Morphine Sulfate (morphine) 2 mg Q4H PRN IV SEVERE PAIN LEVEL 7-10; Start 11/13 at 03:00 Docusate Sodium (Colace) 100 mg Q12H PO ; Start 11/13/16 at 03:00 Hydromorphone HCl (Dilaudid) 1 mg Q4H PRN IV PAIN Last administered on 03:47; Admin Dose 1 MG; Start 11/13/16 at 03:00 Miscellaneous Information Patients own medicat... BID@10,16 XX ; Start 11/13/16 at 10:00 Heparin Sodium (Porcine) (Heparin (5000 Units/0.5 ml)) 5,000 unit BID SC Last administered on 11/13/16t 09:27; Admin Dose 5,000 UNIT; Start 11/13/16 at 09:00 Pantoprazole (Protonix Tab) 40 mg DAILY@06 PO ; Start 11/14/16 at 06:00 STANISLAW MIGUEL MD Nov 13, 2016 09:54
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
[2016-11-14] VITALS (25 sets, daily range): BP systolic 106–158; BP diastolic 57–73; PULSE 80–94; RESP 13–22
[2016-11-14] MEDS: DOCUSATE SODIUM 100 MG CAP PO SCH ×2 (02:21→14:47)
[2016-11-14] MEDS: morphine 2 MG INJ IV PRN ×2 (03:19→07:07)
[2016-11-14 05:35] LABS: BASOPHILS % 0.3 % (0.0-2.0); EOSINOPHILS # 0.3 10^3/ul (0.0-0.5); EOSINOPHILS % 2.4 % (0.0-7.0); HEMATOCRIT 29.1 % (42.0-52.0); HEMOGLOBIN 8.8 g/dl (14.0-18.0); LYMPHOCYTES # 0.6 10^3/ul (0.8-2.9); LYMPHOCYTES % 5.8 % (15.0-51.0); MEAN CORPUSCULAR HEMOGLOBIN 28.2 pg (29.0-33.0); MEAN CORPUSCULAR HGB CONC 30.2 g/dl (32.0-37.0); MEAN CORPUSCULAR VOLUME 93.3 fl (82.0-101.0); MEAN PLATELET VOLUME 9.4 fl (7.4-10.4); MONOCYTE # 1.4 10^3/ul (0.3-0.9); MONOCYTES % 12.4 % (0.0-11.0); NEUTROPHILS % 78.6 % (39.0-77.0); PLATELET COUNT 168 10^3/UL (140-415); RED BLOOD COUNT 3.12 10^6/ul (4.70-6.10); RED CELL DISTRIBUTION WIDTH 16.1 % (11.5-14.5)
[2016-11-14] MEDS: PANTOPRAZOLE (EC) 40 MG TAB PO SCH (05:40)
[2016-11-14 06:09] LABS: ALBUMIN/GLOBULIN RATIO 0.85; CALCIUM 8.3 mg/dl (8.4-10.2); CREATININE 7.79 mg/dl (0.61-1.24); MAGNESIUM 2.1 mg/dl (1.7-2.5); PHOSPHORUS 6.8 mg/dl (2.5-4.9); POTASSIUM 5.7 mmol/L (3.5-5.1); TOTAL PROTEIN 6.5 g/dl (6.1-8.1)
[2016-11-14 06:36] LABS: THYROID STIMULATING HORMONE 0.747 MIU/L (0.465-4.680)
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
[2016-11-14] MEDS: HEPARIN 5,000 UNIT/0.5 ML VIAL SC SCH ×2 (09:00→21:43)
[2016-11-14] MEDS: HEPARIN 1000 UNITS/ML 10 ML INJ CATHETER ONE (12:00)
--- NOTE | 2016-11-14 14:41 | RADRPT ---
Echocardiogram Report Patient Name: PEPPER SO Gender: Male Date: 1945 Study Date: 14-Nov-2016 Editorial Intern: Gale Pal RDCS Location: [id number] Ref. Physician: CHELSI ASIF Quality: Adequate Procedures: Transthoracic echocardiogram with complete 2D, M-Mode, and doppler examination. Indications: Pre-op. 2D/M Mode Doppler Measurement Value Normal Ranges Measurement Value Normal Ranges LVIDd 2D 5.2 3.5 - 5.6 cm JAMES Vmax 1.0 cm2 LVIDs 2D 3.3 2.1 - 4.1 cm JAMES VTI 1.1 cm2 FS 2D 36.2 % AV Mean Jose 2.0 m/sec LVPWd 2D 1.5 0.6 - 1.1 cm AV Mean PG 19.0 mmHg IVSd 2D 1.6 0.6 - 1.1 cm AV Peak Jose 3.3 m/sec IVS/LVPW 2D 1.0 AV Peak PG 44.0 mmHg AoR Diam 2D 3.1 2.0 - 3.7 cm AV VTI 54.9 cm LA/Ao 2D 1 0 - 1 LVOT Mean Jose 0.7 m/sec EDV 2D 140.0 cm3 LVOT Mean PG 2.0 mmHg ESV 2D 36.3 cm3 LVOT Peak Jose 1.1 m/sec LA Dimen 2D 4.0 2.3 - 4.0 cm LVOT Peak PG 5.0 mmHg LVOT Diam 2.0 cm LVOT VTI 19.5 cm LVOT Area 3.1 cm2 MV E Peak Jose 0.9 m/sec MV A Peak Jose 0.9 m/sec MV E/A 1.0 MV Decel Time 211 msec MV E/A 1.0 TR Peak Jose 2.8 m/sec TR Peak PG 30.0 mmHg RVSP 40.0 mmHg Findings Left Ventricle: Normal left ventricular systolic function. Normal left ventricular cavity size. Moderate concentric left ventricular hypertrophy. Ejection fraction is visually estimated at 60 %. Tissue Doppler/Mitral Doppler indices are consistent with impaired relaxation (Stage I diastolic dysfunction). Right Ventricle: Normal right ventricular size. Normal right ventricular systolic function. Left Atrium: There is mild enlargement of left atrium. Right Atrium: The right atrium is normal in size. Mitral Valve: Mild mitral leaflet calcification. Mild mitral annular calcification. Trace mitral regurgitation. Aortic Valve: Moderate aortic stenosis. Aortic valve Max velocity 3.30 m/sec. Max PG 44.00 mmHg. Mean PG 19.00 mmHg. Aortic valve area 1.12 cm2. Aortic cusps appear moderately calcified. Trace to mild aortic valve regurgitation. Tricuspid Valve: Normal appearance of the tricuspid valve. Estimated peak PA systolic pressure 40 mmHg. There is mild tricuspid regurgitation. Pulmonic Valve: Normal pulmonic valve appearance. Pericardium: Normal pericardium with no significant pericardial effusion. Aorta: Normal aortic root. IVC: Dilated IVC with respiratory collapse consistent with elevated right atrial pressure. Conclusions 1.Normal left ventricular systolic function. Normal left ventricular cavity size. Moderate concentric left ventricular hypertrophy. Ejection fraction is visually estimated at 60 %. Tissue Doppler/Mitral Doppler indices are consistent with impaired relaxation (Stage I diastolic dysfunction). 2.There is mild enlargement of left atrium. 3.Mild mitral leaflet calcification. Mild mitral annular calcification. Trace mitral regurgitation. 4.Moderate aortic stenosis. Aortic valve Max velocity 3.30 m/sec. Max PG 44.00 mmHg. Mean PG 19.00 mmHg. Aortic valve area 1.12 cm2. Aortic cusps appear moderately calcified. Trace to mild aortic valve regurgitation. 5.Normal appearance of the tricuspid valve. Estimated peak PA systolic pressure 40 mmHg. There is mild tricuspid regurgitation. Electronically Signed By: Leonel Munoz 14-Nov-2016 14:40:54 -0700 Patient Name: PEPPER SO Study Date: 14-Nov-2016 [id number]
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
[2016-11-14] MEDS ORDERED: POLYMYXIN/BACITRACIN 1L IRRIG ONE (16:37)
[2016-11-14] MEDS ORDERED: ROCURONIUM 50 MG INJ ONE (16:41)
[2016-11-14] MEDS ORDERED: LIDOCAINE 2% (SDV) 5 ML INJ ONE (16:41)
[2016-11-14] MEDS ORDERED: PROPOFOL 20 ML ONE (16:41)
[2016-11-14] MEDS ORDERED: NEOSTIGMINE 3 MG/3 ML SYRINGE ONE (16:41)
[2016-11-14] MEDS ORDERED: GLYCOPYRROLATE 0.4 MG INJ ONE (16:41)
[2016-11-14] MEDS ORDERED: SUCCINYLCHOLINE CHLORIDE 100 MG/5 ML SYG IV ONE (16:41)
--- NOTE | 2016-11-14 16:43 | HPN ---
Date/Time of Note Date/Time of Note DATE: 11/14/16 TIME: 16:43 Interval H&P Admission Note Pt. seen H&P reviewed: No system changes JOHNSON RICHTER MD Nov 14, 2016 16:43
[2016-11-14] MEDS ORDERED: ROPIVACAINE 0.5 % 30 ML VIAL ONE (16:54)
[2016-11-14] MEDS: EPOETIN 10000 UNITS/1 ML INJ (ESRD) SC SCH (17:00)
[2016-11-14] MEDS ORDERED: MIDAZOLAM 1 MG/ML 2 ML INJ ONE (17:26)
[2016-11-14] MEDS ORDERED: GELATIN SIZE 100 SPONGE ONE (19:49)
[2016-11-14] MEDS ORDERED: THROMBIN 5000 UNIT VIAL ONE (19:49)
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
[2016-11-14] MEDS ORDERED: EPHEDrine SULFATE 50 MG/5 ML SYG ONE (20:17)
[2016-11-14] MEDS ORDERED: SOD CHLORIDE 0.9% 1,000 ML IV SCH (20:22)
[2016-11-14] MEDS ORDERED: NACL 0.9% 3 ML SYG IV SCH (20:30)
--- NOTE | 2016-11-14 20:44 | SIPON ---
Date/Time of Note Date/Time of Note DATE: 11/14/16 TIME: 20:38 Operative Report Preoperative Diagnosis bimalleolar fracture of Rt. ankle Postoperative Diagnosis same Operation/Procedure Performed O,R,I,F.of above Surgeon: JOHNSON RICHTER MD Anesthesia Type: general Estimated Blood Loss: 50 - 100 ml's Transfusion Required: no Specimen: none Grafts/Implants plate & screws JOHNSON RICHTER MD Nov 14, 2016 20:44
[2016-11-14] MEDS ORDERED: OXYCODONE/ACETAMINOPHEN (5/325) TAB PO PRN ×2 (21:00)
[2016-11-14] MEDS ORDERED: METOCLOPRAMIDE 10 MG INJ IV PRN (21:00)
[2016-11-14] MEDS ORDERED: hydrALAzine 20 MG INJ IV PRN (21:00)
[2016-11-14] MEDS ORDERED: HYDROmorphONE (0.2 MG/ML) 10ML SYG IV PRN ×3 (21:00)
[2016-11-14] MEDS ORDERED: EPHEDrine SULFATE 50 MG/5 ML SYG IV PRN (21:00)
[2016-11-14] MEDS ORDERED: ONDANSETRON 4 MG INJ IV PRN (21:00)
[2016-11-14] MEDS ORDERED: MIDAZOLAM 1 MG/ML 2 ML INJ IV PRN (21:00)
[2016-11-14] MEDS ORDERED: DIPHENHYDRAMINE 50 MG INJ IV PRN (21:00)
[2016-11-14] MEDS ORDERED: MEPERIDINE 25 MG INJ IV PRN (21:00)
[2016-11-14] MEDS ORDERED: HYDROCODONE/APAP (5/325) TAB PO PRN (21:00)
[2016-11-14] MEDS ORDERED: FENTAnyl 50 MCG/ML VIAL IV PRN ×3 (21:00)
[2016-11-14] MEDS ORDERED: LABETALOL HCL 20MG INJ IV PRN (21:00)
--- NOTE | 2016-11-14 21:29 | RADRPT ---
PROCEDURE: Intraoperative imaging of the right ankle with fluoroscopy. CLINICAL INDICATION: Right ankle pain. Intraoperative. TECHNIQUE: 15 images of the right ankle were obtained in the operating room with an image intensif ier. No radiologist was in attendance. Fluoroscopy time is 117 seconds. COMPARISON: 11/12/2016. FINDINGS: Images demonstrate open reduction and internal fixation with a lateral plate and multiple screws tra nsfixing the distal fibula and 2 cannulated screws transfixing the medial malleolus. Alignment is satisfactory. IMPRESSION: 1. Intraoperative imaging of the right ankle. RPTAT: QQ .Anibal Rosado MD, MD Date Time Electronically viewed and signed by .Anibal Rosado MD, on 11/14/2016 21:29 .R/
--- NOTE | 2016-11-14 21:30 | RADRPT ---
PROCEDURE: XR Right Ankle. CLINICAL INDICATION: Right ankle pain. Postop. TECHNIQUE: 2 views. Frontal and lateral. COMPARISON: Intraoperative imaging done earlier the same day. FINDINGS: There has been open reduction and internal fixation with a lateral plate and multiple screws transfi alvin the fracture of the distal fibula and 2 cannulated screws transfixing the fracture of the media l malleolus. Alignment is satisfactory. Medial and lateral skin reji are noted. Vascular calcifications are present consistent with atherosclerosis. There is an acute posterior malleolus fracture. There is no lytic or blastic lesion. IMPRESSION: 1. Satisfactory postoperative appearance of the right ankle. RPTAT: QQ .Anibal Rosado MD, Date Time Electronically viewed and signed by .Anibal Rosado MD, on 11/14/2016 21:29 .R/
[2016-11-14] MEDS: CEFAZOLIN 1 GM/50 ML (PMX) 50 ML IVPB SCH (21:41)
--- NOTE | 2016-11-14 22:50 | OPR ---
DATE OF OPERATION: 11/14/2016 PREOPERATIVE DIAGNOSIS: Bimalleolar fracture of the right ankle. POSTOPERATIVE DIAGNOSIS: Bimalleolar fracture of the right ankle. OPERATIVE PROCEDURE: Open reduction and internal fixation of the bimalleolar fracture of the right ankle. ANESTHESIA: General anesthesia. SURGEON: Fidel Vidal MD OPERATIVE PROCEDURE: Under anesthesia, the patient was placed in supine position upon the operating table. Usual prep and drape was done, exposing the right ankle. The lateral malleolus was approached through the lateral longitudinal incision by blunt and sharp dissection. The lateral malleolus with the fracture was exposed, and exploration at this time revealed that his bone was almost cardboard-like character because of the osteoporosis and also because of the fact that he has end-stage kidney disease, with the problems with the skeletal structures. The fracture was comminuted and partially collapsed. With some difficulties, lateral malleolar fracture was reduced, and this was internally fixed, utilizing variable-angle locking plates for ankle. After the internal fixation of the lateral malleolus, attention was then directed to the medial malleolus. Through the oblique incision, malleolar fracture was exposed and again, after cleaning any intervening tissues, the fracture was reduced. This was internally fixed using two 4.0 cannulated screws. At the end of the procedure, alignment of the fracture was satisfactory and the position of the fixation device was proper. Because of some blister formation and evidence of soft tissue injuries, the entire right ankle was then placed in a Calix dressing so that the ankle can be placed in the cast later on when the skin condition is better and the swelling is down. The patient tolerated the entire procedure very well and was sent to the recovery room in good condition. Dictated By: In Kim Vidal MD /ramiro/karl /Document#: [id number]
[2016-11-15] VITALS (8 sets, daily range): BP systolic 112–148; BP diastolic 61–88; PULSE 78–96; RESP 18–21
[2016-11-15] MEDS: DOCUSATE SODIUM 100 MG CAP PO SCH ×3 (03:00→15:18)
[2016-11-15 05:31] LABS: ABNORMAL IP MESSAGE 1; BASOPHILS % 0.2 % (0.0-2.0); EOSINOPHILS # 0.2 10^3/ul (0.0-0.5); EOSINOPHILS % 1.3 % (0.0-7.0); HEMATOCRIT 26.3 % (42.0-52.0); LYMPHOCYTES # 0.5 10^3/ul (0.8-2.9); LYMPHOCYTES % 3.8 % (15.0-51.0); MEAN CORPUSCULAR HEMOGLOBIN 28.6 pg (29.0-33.0); MEAN CORPUSCULAR HGB CONC 30.4 g/dl (32.0-37.0); MEAN CORPUSCULAR VOLUME 93.9 fl (82.0-101.0); MEAN PLATELET VOLUME 9.8 fl (7.4-10.4); MONOCYTE # 1.4 10^3/ul (0.3-0.9); MONOCYTES % 11.3 % (0.0-11.0); PLATELET COUNT 187 10^3/UL (140-415); POSITIVE DIFF @See below; RED CELL DISTRIBUTION WIDTH 15.6 % (11.5-14.5)
[2016-11-15] MEDS: PANTOPRAZOLE (EC) 40 MG TAB PO SCH (05:57)
[2016-11-15] MEDS: HYDROmorphONE 1 MG/ML SYG IV PRN ×3 (06:00→20:11)
[2016-11-15 06:03] LABS: CALCIUM 7.7 mg/dl (8.4-10.2); PHOSPHORUS 8.4 mg/dl (2.5-4.9); POTASSIUM 5.5 mmol/L (3.5-5.1)
[2016-11-15 06:32] LABS: CREATININE 6.69 mg/dl (0.61-1.24)
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
[2016-11-15] MEDS: HEPARIN 5,000 UNIT/0.5 ML VIAL SC SCH ×2 (10:30→20:10)
[2016-11-15] MEDS: CEFAZOLIN 1 GM/50 ML (PMX) 50 ML IVPB SCH (10:30)
[2016-11-15] MEDS ORDERED: HEPARIN 1000 UNITS/ML 10 ML INJ ONE (15:05)
[2016-11-15] MEDS: HEPARIN 1000 UNITS/ML 10 ML INJ CATHETER ONE (15:17)
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
[2016-11-16 01:54] VITALS: BP 105/53; RESP 19
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
--- NOTE | 2016-11-16 05:14 | PN ---
DATE: 11/15/2016 First postop day, afebrile. H and H today is 8.0/26.3. Comfortable with Calix dressing. No signs of neurovascular compromise. Postop x-ray shows satisfactory alignment of the fractures. To be up with PT without any weightbearing. Dictated By: In Kim Vidal MD /ramiro/asuncion /Document#: [id number]
[2016-11-16] MEDS: PANTOPRAZOLE (EC) 40 MG TAB PO SCH (05:42)
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
[2016-11-16] MEDS: DOCUSATE SODIUM 100 MG CAP PO SCH ×2 (09:00→20:13)
[2016-11-16] MEDS: HEPARIN 5,000 UNIT/0.5 ML VIAL SC SCH ×2 (09:00→20:17)
[2016-11-16] MEDS: HYDROmorphONE 1 MG/ML SYG IV PRN (10:05)
[2016-11-16 14:25] LABS: ABNORMAL IP MESSAGE 1; BASOPHILS % 0.2 % (0.0-2.0); EOSINOPHILS # 0.1 10^3/ul (0.0-0.5); EOSINOPHILS % 1.1 % (0.0-7.0); HEMATOCRIT 22.4 % (42.0-52.0); HEMOGLOBIN 7.1 g/dl (14.0-18.0); LYMPHOCYTES # 0.4 10^3/ul (0.8-2.9); LYMPHOCYTES % 4.2 % (15.0-51.0); MEAN CORPUSCULAR HEMOGLOBIN 29.2 pg (29.0-33.0); MEAN CORPUSCULAR HGB CONC 31.7 g/dl (32.0-37.0); MEAN CORPUSCULAR VOLUME 92.2 fl (82.0-101.0); MEAN PLATELET VOLUME 9.5 fl (7.4-10.4); MONOCYTE # 1.1 10^3/ul (0.3-0.9); MONOCYTES % 10.9 % (0.0-11.0); NEUTROPHILS % 83.2 % (39.0-77.0); PLATELET COUNT 166 10^3/UL (140-415); POSITIVE DIFF @See below; RED BLOOD COUNT 2.43 10^6/ul (4.70-6.10); RED CELL DISTRIBUTION WIDTH 15.2 % (11.5-14.5); WHITE BLOOD COUNT 9.7 10^3/ul (4.8-10.8)
[2016-11-16 14:41] LABS: CALCIUM 7.8 mg/dl (8.4-10.2); MAGNESIUM 2.1 mg/dl (1.7-2.5); PHOSPHORUS 8.1 mg/dl (2.5-4.9); POTASSIUM 4.3 mmol/L (3.5-5.1)
[2016-11-16 14:54] LABS: CREATININE 6.58 mg/dl (0.61-1.24)
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
[2016-11-16] MEDS: EPOETIN 10000 UNITS/1 ML INJ (ESRD) SC SCH (18:34)
[2016-11-16 19:20] VITALS: BP 126/58; RESP 20
[2016-11-17] VITALS (11 sets, daily range): BP systolic 124–149; BP diastolic 60–79; PULSE 79–89; RESP 18–19
[2016-11-17] MEDS: PANTOPRAZOLE (EC) 40 MG TAB PO SCH (05:41)
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
[2016-11-17] MEDS: DOCUSATE SODIUM 100 MG CAP PO SCH ×2 (08:06→21:45)
[2016-11-17] MEDS: HEPARIN 5,000 UNIT/0.5 ML VIAL SC SCH ×2 (08:14→21:48)
[2016-11-17 10:27] LABS: ABNORMAL IP MESSAGE 1; HEMATOCRIT 20.9 % (42.0-52.0); MEAN CORPUSCULAR HEMOGLOBIN 28.4 pg (29.0-33.0); MEAN CORPUSCULAR HGB CONC 31.1 g/dl (32.0-37.0); MEAN CORPUSCULAR VOLUME 91.3 fl (82.0-101.0); MEAN PLATELET VOLUME 9.3 fl (7.4-10.4); PLATELET COUNT 161 10^3/UL (140-415); POSITIVE DIFF @See below; RED BLOOD COUNT 2.29 10^6/ul (4.70-6.10); RED CELL DISTRIBUTION WIDTH 15.1 % (11.5-14.5); WHITE BLOOD COUNT 7.7 10^3/ul (4.8-10.8)
[2016-11-17 11:20] LABS: HEMOGLOBIN 6.5 g/dl (14.0-18.0)
[2016-11-17 11:21] LABS: PATH REVIEW? YES
[2016-11-17 12:53] LABS: EOSINOPHILS % (M) 2 % (0-7); HYPOCHROMASIA 1+ (0-0); MONOCYTES % (M) 11 % (0-11); PLATELET ESTIMATE NORMAL; POIKILOCYTOSIS 1+ (0-0); POLYCHROMASIA 3+ (0-0)
[2016-11-17] MEDS ORDERED: EPOETIN 3000 UNITS/1 ML INJ (ESRD) SC ONE (14:30)
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
[2016-11-17] MEDS: HYDROCODONE/APAP (5/325) TAB PO PRN (18:24)
[2016-11-18 02:00] VITALS: BP 124/60; RESP 18
[2016-11-18] MEDS: PANTOPRAZOLE (EC) 40 MG TAB PO SCH (06:08)
[2016-11-18 07:36] VITALS: BP 96/55; RESP 16
[2016-11-18 07:58] VITALS: BP 150/70; RESP 18
[2016-11-18] MEDS: HYDROmorphONE 1 MG/ML SYG IV PRN (08:14)
[2016-11-18] MEDS: DOCUSATE SODIUM 100 MG CAP PO SCH ×2 (09:23→21:18)
[2016-11-18] MEDS: HEPARIN 5,000 UNIT/0.5 ML VIAL SC SCH ×2 (09:26→21:26)
[2016-11-18 09:28] LABS: ABNORMAL IP MESSAGE 1; HEMATOCRIT 21.4 % (42.0-52.0); MEAN CORPUSCULAR HEMOGLOBIN 28.4 pg (29.0-33.0); MEAN CORPUSCULAR HGB CONC 30.8 g/dl (32.0-37.0); MEAN CORPUSCULAR VOLUME 92.2 fl (82.0-101.0); MEAN PLATELET VOLUME 9.3 fl (7.4-10.4); PLATELET COUNT 204 10^3/UL (140-415); POSITIVE DIFF @See below; RED BLOOD COUNT 2.32 10^6/ul (4.70-6.10); RED CELL DISTRIBUTION WIDTH 15.2 % (11.5-14.5); WHITE BLOOD COUNT 8.3 10^3/ul (4.8-10.8)
[2016-11-18 09:34] LABS: HEMOGLOBIN 6.6 g/dl (14.0-18.0)
[2016-11-18 09:49] LABS: CALCIUM 7.9 mg/dl (8.4-10.2); MAGNESIUM 2.2 mg/dl (1.7-2.5); PHOSPHORUS 8.1 mg/dl (2.5-4.9); POTASSIUM 4.8 mmol/L (3.5-5.1)
[2016-11-18 10:00] LABS: CREATININE 7.27 mg/dl (0.61-1.24)
[2016-11-18 10:51] LABS: ANISOCYTOSIS 3+ (0-0); BASOPHILS % (M) 3 % (0-2); EOSINOPHILS % (M) 1 % (0-7); GIANT THROMBO% (M) 1 % (0-0); METAMYELOCYTES %M 1 % (0-0); MONOCYTES % (M) 12 % (0-11); MYELOCYTES % (M) 1 % (0-0); PLATELET ESTIMATE NORMAL; POIKILOCYTOSIS 1+ (0-0); POLYCHROMASIA 3+ (0-0); PROMYELOCYTES #M 0 10^3/ul (0-0); PROMYELOCYTES % (M) 1 % (0-0)
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
[2016-11-18 12:02] LABS: IRON 24 ug/dl (35-150)
[2016-11-18 12:12] LABS: TOTAL IRON BINDING CAPACITY 184 ug/dl (241-421)
[2016-11-18] MEDS ORDERED: EPOETIN 4000 UNITS/1 ML INJ (ESRD) SC SCH (13:00)
[2016-11-18] MEDS: HYDROCODONE/APAP (5/325) TAB PO PRN ×2 (19:48→19:58)
[2016-11-18 20:00] VITALS: BP 135/61; RESP 19
[2016-11-18] MEDS: morphine 4 MG/ML VIAL IV PRN (21:47)
[2016-11-19] VITALS (13 sets, daily range): BP systolic 122–162; BP diastolic 56–73; PULSE 71–81; RESP 16–20
[2016-11-19 05:32] LABS: ABNORMAL IP MESSAGE 1; BASOPHILS % 0.3 % (0.0-2.0); EOSINOPHILS # 0.1 10^3/ul (0.0-0.5); EOSINOPHILS % 1.6 % (0.0-7.0); HEMATOCRIT 21.2 % (42.0-52.0); LYMPHOCYTES # 0.6 10^3/ul (0.8-2.9); MEAN CORPUSCULAR HEMOGLOBIN 28.3 pg (29.0-33.0); MEAN CORPUSCULAR HGB CONC 30.7 g/dl (32.0-37.0); MEAN CORPUSCULAR VOLUME 92.2 fl (82.0-101.0); MEAN PLATELET VOLUME 9.6 fl (7.4-10.4); MONOCYTE # 0.9 10^3/ul (0.3-0.9); MONOCYTES % 13.6 % (0.0-11.0); NEUTROPHILS % 75.9 % (39.0-77.0); PLATELET COUNT 227 10^3/UL (140-415); POSITIVE DIFF @See below; RED CELL DISTRIBUTION WIDTH 15.4 % (11.5-14.5); WHITE BLOOD COUNT 6.9 10^3/ul (4.8-10.8)
[2016-11-19 05:53] LABS: CALCIUM 7.9 mg/dl (8.4-10.2); MAGNESIUM 2.2 mg/dl (1.7-2.5); PHOSPHORUS 9.1 mg/dl (2.5-4.9); POTASSIUM 5.1 mmol/L (3.5-5.1)
[2016-11-19 06:05] LABS: HEMOGLOBIN 6.5 g/dl (14.0-18.0)
[2016-11-19 06:06] LABS: CREATININE 8.76 mg/dl (0.61-1.24)
[2016-11-19] MEDS: PANTOPRAZOLE (EC) 40 MG TAB PO SCH (06:17)
[2016-11-19] MEDS: morphine 4 MG/ML VIAL IV PRN (06:46)
[2016-11-19] MEDS: DOCUSATE SODIUM 100 MG CAP PO SCH ×3 (08:23→21:11)
[2016-11-19] MEDS: HEPARIN 5,000 UNIT/0.5 ML VIAL SC SCH ×3 (08:24→21:20)
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
[2016-11-19] MEDS: SOD FERRIC GLUC COMPLX 125 MG in SOD CHLORIDE 0.9% 100 ML IVPB SCH (14:02)
[2016-11-20 02:00] VITALS: BP 146/68; RESP 20
[2016-11-20 05:11] LABS: ABNORMAL IP MESSAGE 1; BASOPHILS % 0.4 % (0.0-2.0); EOSINOPHILS # 0.1 10^3/ul (0.0-0.5); EOSINOPHILS % 1.7 % (0.0-7.0); HEMATOCRIT 27.5 % (42.0-52.0); HEMOGLOBIN 8.6 g/dl (14.0-18.0); LYMPHOCYTES # 0.4 10^3/ul (0.8-2.9); LYMPHOCYTES % 4.9 % (15.0-51.0); MEAN CORPUSCULAR HEMOGLOBIN 28.6 pg (29.0-33.0); MEAN CORPUSCULAR HGB CONC 31.3 g/dl (32.0-37.0); MEAN CORPUSCULAR VOLUME 91.4 fl (82.0-101.0); MEAN PLATELET VOLUME 9.4 fl (7.4-10.4); MONOCYTES % 12.1 % (0.0-11.0); NEUTROPHILS % 80.4 % (39.0-77.0); PLATELET COUNT 297 10^3/UL (140-415); POSITIVE DIFF @See below; RED BLOOD COUNT 3.01 10^6/ul (4.70-6.10); WHITE BLOOD COUNT 8.5 10^3/ul (4.8-10.8)
[2016-11-20 05:48] LABS: ALBUMIN/GLOBULIN RATIO 0.9; CALCIUM 8.5 mg/dl (8.4-10.2); MAGNESIUM 2.1 mg/dl (1.7-2.5); PHOSPHORUS 7.3 mg/dl (2.5-4.9); POTASSIUM 5.2 mmol/L (3.5-5.1); TOTAL PROTEIN 6.3 g/dl (6.1-8.1)
[2016-11-20 06:15] LABS: CREATININE 6.69 mg/dl (0.61-1.24)
[2016-11-20] MEDS: PANTOPRAZOLE (EC) 40 MG TAB PO SCH (06:48)
[2016-11-20 08:10] VITALS: BP 147/70; RESP 17
[2016-11-20] MEDS: DOCUSATE SODIUM 100 MG CAP PO SCH ×2 (09:00→20:23)
[2016-11-20] MEDS: HEPARIN 5,000 UNIT/0.5 ML VIAL SC SCH ×2 (09:02→20:30)
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
[2016-11-20] MEDS: morphine 2 MG INJ IV PRN (12:01)
[2016-11-20] MEDS: SOD FERRIC GLUC COMPLX 125 MG in SOD CHLORIDE 0.9% 100 ML IVPB SCH (12:01)
[2016-11-20 14:40] VITALS: BP 149/69; RESP 18
[2016-11-20 19:09] VITALS: BP 141/66; RESP 18
[2016-11-20 19:17] VITALS: BP 118/56; RESP 18
[2016-11-21] VITALS (10 sets, daily range): BP systolic 130–169; BP diastolic 63–79; PULSE 75–79; RESP 18–19
--- NOTE | 2016-11-21 01:18 | PN ---
DATE: 11/20/2016 SUBJECTIVE DATA: Fourth postoperative day. [place] dressings are intact. OBJECTIVE DATA: Afebrile. LABORATORY AND DIAGNOSTIC DATA: Latest hemoglobin is 8.6 and hematocrit 27.5. ASSESSMENT AND PLAN: Limited progress with physical therapy. Possible cardiac procedure pending. Dictated By: In Kim Vidal MD /ramiro/michelle /Document#: [id number]
[2016-11-21 05:39] LABS: ABNORMAL IP MESSAGE 1; BASOPHIL # 0.1 10^3/ul (0.0-0.1); BASOPHILS % 0.6 % (0.0-2.0); EOSINOPHILS # 0.2 10^3/ul (0.0-0.5); EOSINOPHILS % 2.1 % (0.0-7.0); HEMATOCRIT 27.5 % (42.0-52.0); HEMOGLOBIN 8.4 g/dl (14.0-18.0); LYMPHOCYTES # 0.6 10^3/ul (0.8-2.9); LYMPHOCYTES % 6.7 % (15.0-51.0); MEAN CORPUSCULAR HEMOGLOBIN 27.9 pg (29.0-33.0); MEAN CORPUSCULAR HGB CONC 30.5 g/dl (32.0-37.0); MEAN CORPUSCULAR VOLUME 91.4 fl (82.0-101.0); MEAN PLATELET VOLUME 9.5 fl (7.4-10.4); MONOCYTES % 12.1 % (0.0-11.0); NEUTROPHILS % 77.8 % (39.0-77.0); PLATELET COUNT 364 10^3/UL (140-415); POSITIVE DIFF @See below; RED BLOOD COUNT 3.01 10^6/ul (4.70-6.10); RED CELL DISTRIBUTION WIDTH 15.8 % (11.5-14.5); WHITE BLOOD COUNT 8.5 10^3/ul (4.8-10.8)
[2016-11-21] MEDS: PANTOPRAZOLE (EC) 40 MG TAB PO SCH (05:56)
[2016-11-21 06:05] LABS: MAGNESIUM 2.2 mg/dl (1.7-2.5); PHOSPHORUS 8.5 mg/dl (2.5-4.9); POTASSIUM 5.7 mmol/L (3.5-5.1)
[2016-11-21 06:29] LABS: CREATININE 9.01 mg/dl (0.61-1.24)
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
[2016-11-21] MEDS: DOCUSATE SODIUM 100 MG CAP PO SCH (09:00)
[2016-11-21] MEDS: HEPARIN 5,000 UNIT/0.5 ML VIAL SC SCH (09:12)
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
[2016-11-21] MEDS: SOD FERRIC GLUC COMPLX 125 MG in SOD CHLORIDE 0.9% 100 ML IVPB SCH (12:46)
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
== END 2016-11-21 18:00 | DRG 492 ==
LOC: E/R 20:27 → MS1 11-13 00:36
PROVIDERS: ADMIT Internal Medicine; ATTEND Internal Medicine
PROC: 0QSG04Z Reposition Right Tibia with Internal Fixation Device, Open Approach (ICD-10-PCS; 2016-11-14)
PROC: 5A1D60Z (ICD-10-PCS; 2016-11-14)
PROC: 0QSJ04Z Reposition Right Fibula with Internal Fixation Device, Open Approach (ICD-10-PCS; principal; 2016-11-14 15:30)
PROC: 30233N1 Transfusion of Nonautologous Red Blood Cells into Peripheral Vein, Percutaneous Approach (ICD-10-PCS; 2016-11-19)
DX: S82.841A Displaced bimalleolar fracture of right lower leg, initial encounter for closed fracture (principal); N18.6 End stage renal disease; G93.40 Encephalopathy, unspecified; S12.500A Unspecified displaced fracture of sixth cervical vertebra, initial encounter for closed fracture; I12.0 Hypertensive chronic kidney disease with stage 5 chronic kidney disease or end stage renal disease; R65.10 Systemic inflammatory response syndrome (SIRS) of non-infectious origin without acute organ dysfunction; S22.42XA Multiple fractures of ribs, left side, initial encounter for closed fracture; E83.9 Disorder of mineral metabolism, unspecified; Z99.2 Dependence on renal dialysis; E87.6 Hypokalemia; D64.9 Anemia, unspecified; M89.8X8 Other specified disorders of bone, other site; I25.10 Atherosclerotic heart disease of native coronary artery without angina pectoris; F25.9 Schizoaffective disorder, unspecified; V09.20XA Pedestrian injured in traffic accident involving unspecified motor vehicles, initial encounter; Y92.410 Unspecified street and highway as the place of occurrence of the external cause; I35.0 Nonrheumatic aortic (valve) stenosis; D72.829 Elevated white blood cell count, unspecified; M81.0 Age-related osteoporosis without current pathological fracture; G89.29 Other chronic pain
CPT/HCPCS: 36415; 36430; 70450; 71250; 72125; 73590; 73600; 74176; 80048; 80053; 83540; 83605; 83690; 83735; 84100; 84132; 84443; 84484; 85025; 85610; 85730; 86850; 86900; 86901; 86920; 90935; 93005; 93306; 96372; 97110; 97116; 97161; 97530; C1713; J0690; J0886; J1170; J1644; J2250; J2270; J2710; J2795; J2916; J7030; J7999; L0174; P9016; Q4081

== ENCOUNTER 2017-02-04 11:26 | Inpatient (IN) | payer MEDICARE, OTHER ==
[~2017-02-04] VITALS: Ht 165.1 cm; Wt 78.0 kg
[2017-02-04] VITALS (12 sets, daily range): BP systolic 130–165; BP diastolic 65–81; PULSE 57–66; RESP 16–20; TEMP 98.8; Ht 165.1 cm; Wt 78.0 kg
[2017-02-04] MEDS ORDERED: morphine 4 MG/ML VIAL IV STA (11:33)
[2017-02-04] MEDS ORDERED: ONDANSETRON 4 MG INJ IV STA (11:33)
--- NOTE | 2017-02-04 12:06 | RADRPT ---
PROCEDURE: XR left Hip. CLINICAL INDICATION: Fracture TECHNIQUE: AP and frog lateral views of the left hip were performed. COMPARISON: None. FINDINGS: There is an impacted and comminuted fracture at the intertrochanteric region of the left hip and bas icervical region noting varus angulation of the distal fragment. The femoral head is otherwise loca alix. There is background moderate left hip arthrosis. Bone mineral density is decreased. Partially a ssessed ORIF of the right hip. IMPRESSION: 1. Comminuted, mildly impacted intertrochanteric and basicervical fracture of the left hip with keen[place] us angulation of the distal fragment. 2. Decreased bone mineral density. 3. Partially assessed right hip ORIF hardware. RPTAT: HH .Carlito Richter MD, Date Time Electronically viewed and signed by .Carlito Richter MD, on 02/04/2017 12:05 .d/
--- NOTE | 2017-02-04 12:19 | RADRPT ---
PROCEDURE: XR Chest. CLINICAL INDICATION: Abdomen pain. TECHNIQUE: Single frontal view. COMPARISON: None. FINDINGS: There is a tunneled right internal jugular vein dialysis catheter with the tip in the lower superior vena cava. There is a small right pleural effusion and mild right basilar atelectasis. The left chris g is clear and there is no left pleural effusion. The heart is enlarged. Calcification is present in the aorta consistent with atherosclerosis. There is a new cardiac loop recorder overlying the left side of the chest. There is no pneumothorax. IMPRESSION: 1. Dialysis catheter in satisfactory position. 2. Small right pleural effusion and mild right basilar atelectasis, improved. 3. Cardiomegaly and atherosclerosis. 4. New cardiac tube recorder overlying the left sided chest. 5. Otherwise unremarkable chest radiograph. RPTAT: QQ .Anibal Rosado MD, MD Date Time Electronically viewed and signed by .Anibal Rosado MD, MD on 02/04/2017 12:19 .R/
[2017-02-04 12:27] LABS: ABNORMAL IP MESSAGE 1; BASOPHILS % 0.3 % (0.0-2.0); EOSINOPHILS # 0.1 10^3/ul (0.0-0.5); EOSINOPHILS % 0.7 % (0.0-7.0); HEMOGLOBIN 9.5 g/dl (14.0-18.0); LYMPHOCYTES # 0.5 10^3/ul (0.8-2.9); LYMPHOCYTES % 4.7 % (15.0-51.0); MEAN CORPUSCULAR HEMOGLOBIN 28.6 pg (29.0-33.0); MEAN CORPUSCULAR HGB CONC 30.6 g/dl (32.0-37.0); MEAN CORPUSCULAR VOLUME 93.4 fl (82.0-101.0); MEAN PLATELET VOLUME 9.8 fl (7.4-10.4); MONOCYTE # 0.9 10^3/ul (0.3-0.9); MONOCYTES % 8.8 % (0.0-11.0); NEUTROPHIL # 8.3 10^3/ul (1.6-7.5); PLATELET COUNT 129 10^3/UL (140-415); POSITIVE DIFF @See below; RED BLOOD COUNT 3.32 10^6/ul (4.70-6.10); RED CELL DISTRIBUTION WIDTH 16.1 % (11.5-14.5); WHITE BLOOD COUNT 9.8 10^3/ul (4.8-10.8)
[2017-02-04 12:39] LABS: INR 1.24; PROTIME 15.7 Sec (12.2-14.2); PT RATIO 1.2
[2017-02-04 12:40] LABS: PARTIAL THROMBOPLASTIN TIME 30.2 Sec (25.0-35.0)
[2017-02-04 12:43] LABS: ALBUMIN 3.5 g/dl (3.3-4.9); CREATININE 9.95 mg/dl (0.61-1.24)
[2017-02-04 12:47] LABS: POTASSIUM 6.2 mmol/L (3.5-5.1)
[2017-02-04] MEDS ORDERED: NA BICARBONATE 8.4% 50 ML SYG IV STA (12:47)
[2017-02-04 12:54] LABS: TROPONIN-I 0.04 ng/ml (0.00-0.12)
[2017-02-04] MEDS ORDERED: CALC500T11 PO (12:54)
[2017-02-04] MEDS ORDERED: DOCU-144 PO (12:55)
[2017-02-04] MEDS ORDERED: CLON0.2T5 PO (12:55)
[2017-02-04] MEDS ORDERED: CRAN425C2 PO (12:56)
[2017-02-04] MEDS ORDERED: BISA10SU55 RC (12:57)
[2017-02-04] MEDS ORDERED: LORAZEPAM 2 MG INJ IV ONE (13:00)
[2017-02-04] MEDS ORDERED: LABETALOL HCL 20MG INJ IV ONE (13:00)
[2017-02-04] MEDS ORDERED: MORP15TA92 PO (13:04)
[2017-02-04] MEDS ORDERED: HYDR-906 PO ×3 (13:05→13:09)
[2017-02-04] MEDS ORDERED: ACET-2047 PO (13:06)
[2017-02-04] MEDS ORDERED: NEPH PO (13:06)
[2017-02-04] MEDS ORDERED: SEVE800T10 PO (13:06)
[2017-02-04] MEDS ORDERED: PANT40TA3 PO (13:07)
[2017-02-04] MEDS ORDERED: CALC667T2 PO (13:07)
[2017-02-04] MEDS ORDERED: ONDANSETRON 4 MG INJ IV PRN (13:30)
[2017-02-04] MEDS ORDERED: ACETAMINOPHEN 325 MG TAB PO PRN (13:30)
--- NOTE | 2017-02-04 13:42 | ERD ---
ER Documentation Chief Complaint Chief Complaint S/P FALL HAS LEFT HIP PAIN HPI Patient is a 71-year-old male who presents with left hip fracture. Please note the history and physical exam is limited secondary to the patient's mental status. The patient was brought in by ambulance. The patient had a left hip fracture seen on x-ray done yesterday as an outpatient. The patient said that he fell 4 days ago. He did miss dialysis yesterday. His primary doctor is Dr. Tay. He was sent to the ER for admission. ROS All systems reviewed and are negative except as per history of present illness. Medications Home Meds Reported Medications Hydrocodone/Acetaminophen ([place] 5-325 Tablet) 1 Each Tablet, 2 EACH PO Q6 Y for PAIN LEVEL 7-10, TAB 02/04/17 Hydrocodone/Acetaminophen ([place] 5-325 Tablet) 1 Each Tablet, 1 EACH PO Q6 Y for PAIN LEVEL 4-6, TAB 02/04/17 Calcium Acetate* (Phoslo*) 667 Mg Tablet, 667 MG PO WITH MEALS, TAB 02/04/17 Pantoprazole* (Protonix*) 40 Mg Tablet.dr, 40 MG PO DAILY, TAB 02/04/17 Multivit/Ca Carb/B Cmplx/Fa* (Mel-Laura*) 1 Tab Tab, 1 TAB PO DAILY, TAB 02/04/17 Sevelamer Hcl* (Renagel*) 800 Mg Tablet, 1600 MG PO WITH MEALS, TAB 02/04/17 Acetaminophen* (Acetaminophen*) 650 Mg Tablet, 650 MG PO Q4 Y for PAIN AND OR ELEVATED TEMP, #30 TAB 02/04/17 Hydrocodone/Acetaminophen ([place] 5-325 Tablet) 1 Each Tablet, 1 EACH PO DAILY Y for PAIN MANAGMENT, TAB 02/04/17 Morphine Sulfate* (Ms Contin*) 15 Mg Tablet.sa, 2 MG PO Q4H WHILE AWAKE Y for PAIN, TAB 02/04/17 Bisacodyl (Dulcolax) 10 Mg Supp.rect, 10 MG RC PRN Y for CONSTIPATION, SUPP.RECT 02/04/17 Cranberry Extract (Cranberry) 425 Mg Capsule, 425 MG PO DAILY, CAP 02/04/17 Docusate Sodium* (Colace*) 100 Mg Capsule, 200 MG PO QHS Y for CONSTIPATION, # 60 CAP 02/04/17 Clonidine Hcl* (Clonidine Hcl*) 0.2 Mg Tablet, 0.2 MG PO Q6 Y for ELEVATED BLOOD PRESSURE, TAB 02/04/17 Calcium Carbonate ([place]-500) 500 Mg Tablet, 500 MG PO DAILY, TAB 02/04/17 Melatonin-Pyridoxine Hcl (Melatonin) 1-10 Mg Tablet, 1 TAB PO HS, TAB 06/04/16 Carvedilol* (Coreg*) 3.125 Mg Tablet, 3.125 MG PO BID, #60 TAB 05/25/16 Discontinued Reported Medications Clonidine Hcl* (Clonidine Hcl*) 0.2 Mg Tablet, 0.4 MG PO QID, TAB 05/25/16 Discontinued Scripts Hydrocodone/Acetaminophen ([place] 5-325 Tablet) 1 Each Tablet, 1 TAB PO Q6H Y for PAIN, #5 TAB Prov:KVEAN DECKER DO 05/25/16 Allergies Allergies: Coded Allergies: No Known Allergy (Unverified , 02/04/17) PMhx/Soc History of Surgery: Yes (CHOLECYSTECTOMY,APPENDECTOMY, HIP SX,IMPLANT TETH) Anesthesia Reaction: No Hx Neurological Disorder: No Hx Respiratory Disorders: No Hx Cardiac Disorders: No Hx Psychiatric Problems: Yes (SCHIZOAFFECTIVE DISORDER) Hx Miscellaneous Medical Probl: Yes (see PT note) Hx Tobacco Use: No Smoking Status: Former smoker FmHx Unable to obtain Physical Exam Vitals Vital Signs Date Time Temp Pulse Resp B/P Pulse Ox O2 Delivery O2 Flow Rate FiO2 02/04/17 11:42 97.7 60 18 181/71 96 Physical Exam Const: No acute distress Head: Atraumatic Eyes: Normal Conjunctiva ENT: Normal External Ears, Nose and Mouth. Neck: Full range of motion..~ No meningismus. Resp: Clear to auscultation bilaterally Cardio: Regular rate and rhythm, no murmurs Abd: Soft, non tender, non distended. Normal bowel sounds Skin: No petechiae or rashes Back: No midline or flank tenderness Ext: Left leg is shortened and externally rotated, patient has pain with any range of motion of this leg Neur: Awake but confused Result Diagram: 02/04/17 1215 02/04/17 1215 Results 24 hrs Laboratory Tests Test 02/04/17 12:15 White Blood Count 9.810^3/ul Red Blood Count 3.3210^6/ul Hemoglobin 9.5g/dl Hematocrit 31.0% Mean Corpuscular Volume 93.4fl Mean Corpuscular Hemoglobin 28.6pg Mean Corpuscular Hemoglobin Concent 30.6g/dl Red Cell Distribution Width 16.1% Platelet Count 67642^3/UL Mean Platelet Volume 9.8fl Neutrophils % 85.0% Lymphocytes % 4.7% Monocytes % 8.8% Eosinophils % 0.7% Basophils % 0.3% Nucleated Red Blood Cells % 0.0/100WBC Neutrophils # 8.310^3/ul Lymphocytes # 0.510^3/ul Monocytes # 0.910^3/ul Eosinophils # 0.110^3/ul Basophils # 0.010^3/ul Nucleated Red Blood Cells # 0.010^3/ul Prothrombin Time 15.7Sec Prothrombin Time Ratio 1.2 INR International Normalized Ratio 1.24 Activated Partial Thromboplast Time 30.2Sec Sodium Level 146mmol/L Potassium Level 6.2mmol/L Chloride Level 110mmol/L Carbon Dioxide Level 23mmol/L Anion Gap 19 Blood Urea Nitrogen 75mg/dl Creatinine 9.95mg/dl Glucose Level 121mg/dl Calcium Level 10.0mg/dl Total Bilirubin 0.0mg/dl Direct Bilirubin 0.00mg/dl Indirect Bilirubin 0.0mg/dl Aspartate Amino Transf (AST/SGOT) 19IU/L Alanine Aminotransferase (ALT/SGPT) 45IU/L Alkaline Phosphatase 156IU/L Troponin I 0.040ng/ml Total Protein 7.0g/dl Albumin 3.5g/dl Globulin 3.50g/dl Albumin/Globulin Ratio 1.00 Lipase 209U/L Current Medications Medications (Trade) Dose Ordered Sig/Yolis Route PRN Reason Start Time Stop Time Status Last Admin Dose Admin Morphine Sulfate (morphine) 4 mg ONCE STAT IV 02/04/17 11:33 02/04/17 11:35 DC 02/04/17 12:42 Ondansetron HCl (Zofran Inj) 4 mg ONCE STAT IV 02/04/17 11:33 02/04/17 11:35 DC 02/04/17 12:41 Sodium Bicarbonate (Na Bicarb 8.4% Syg) 50 ml ONCE STAT IV 02/04/17 12:47 02/04/17 12:48 DC 02/04/17 13:41 Lorazepam (Ativan) 1 mg ONCE ONCE IV 02/04/17 13:00 02/04/17 13:01 DC 02/04/17 13:39 Labetalol HCl (Labetalol) 20 mg ONCE ONCE IV 02/04/17 13:00 02/04/17 13:01 DC 02/04/17 13:40 Ondansetron HCl (Zofran Inj) 4 mg ER BRIDGE PRN IV NAUSEA AND/OR VOMITING 02/04/17 13:30 02/05/17 13:29 Acetaminophen (Tylenol Tab) 650 mg ER BRIDGE PRN PO MILD PAIN/FEVER 02/04/17 13:30 02/05/17 13:29 Procedures/MDM X-ray of the left hip shows fracture per radiology. PROCEDURE: XR Chest. CLINICAL INDICATION: Abdomen pain. TECHNIQUE: Single frontal view. COMPARISON: None. FINDINGS: There is a tunneled right internal jugular vein dialysis catheter with the tip in the lower superior vena cava. There is a small right pleural effusion and mild right basilar atelectasis. The left lung is clear and there is no left pleural effusion. The heart is enlarged. Calcification is present in the aorta consistent with atherosclerosis. There is a new cardiac loop recorder overlying the left side of the chest. There is no pneumothorax. IMPRESSION: 1. Dialysis catheter in satisfactory position. 2. Small right pleural effusion and mild right basilar atelectasis, improved. 3. Cardiomegaly and atherosclerosis. 4. New cardiac tube recorder overlying the left sided chest. 5. Otherwise unremarkable chest radiograph. RPTAT: QQ .Anibal Rosado MD, MD Date Time Electronically viewed and signed by .Anibal Rosado MD, on 02/04/2017 12:19 EKG read by me: Rate/Rhythm: Regular rate and rhythm at a rate of 60 Intervals: Normal Impression: No evidence of ischemia or arrhythmia Patient is a 71-year-old male dialysis patient who presents with a left-sided hip fracture. The patient was also found to have hyperkalemia which is likely because he missed dialysis yesterday. The patient was given medication to lower the potassium but will need dialysis once he is admitted. I spoke with Dr. Rinaldi who is covering for Dr. Tay who will see the patient in consultation and arrange dialysis. The patient was given morphine for pain. The patient will need orthopedic consultation and I will leave this up to the inpatient team as he is not currently optimized for surgery given his renal failure and hyperkalemia. Critical Care: Time: 35 minutes excluding all billable procedures. Treatments/Evaluations: Close monitoring and treatment of unstable vital signs, cardiorespiratory, and neurologic status, while maintaining tight balance of fluid, respiratory, and cardiac interventions. Departure Diagnosis: Primary Impression: Hip fracture Encounter type: initial encounter Fracture type: closed Laterality: left Qualified Code: S72.002A - Closed fracture of left hip, initial encounter Additional Impressions: Fall Encounter type: initial encounter Qualified Code: W19.XXXA - Fall, initial encounter Hyperkalemia Condition: PAULINE Valencia MD Feb 04, 2017 13:42
[2017-02-05] VITALS (26 sets, daily range): BP systolic 132–183; BP diastolic 62–87; PULSE 69–92; RESP 18–22
[2017-02-05 06:39] LABS: ABNORMAL IP MESSAGE 1; BASOPHILS % 0.3 % (0.0-2.0); EOSINOPHILS # 0.1 10^3/ul (0.0-0.5); HEMATOCRIT 29.1 % (42.0-52.0); HEMOGLOBIN 9.1 g/dl (14.0-18.0); LYMPHOCYTES # 0.5 10^3/ul (0.8-2.9); MEAN CORPUSCULAR HEMOGLOBIN 28.9 pg (29.0-33.0); MEAN CORPUSCULAR HGB CONC 31.3 g/dl (32.0-37.0); MEAN CORPUSCULAR VOLUME 92.4 fl (82.0-101.0); MEAN PLATELET VOLUME 10.2 fl (7.4-10.4); MONOCYTES % 12.5 % (0.0-11.0); NEUTROPHIL # 6.1 10^3/ul (1.6-7.5); NEUTROPHILS % 78.9 % (39.0-77.0); PLATELET COUNT 122 10^3/UL (140-415); POSITIVE DIFF @See below; RED BLOOD COUNT 3.15 10^6/ul (4.70-6.10); RED CELL DISTRIBUTION WIDTH 16.1 % (11.5-14.5); WHITE BLOOD COUNT 7.7 10^3/ul (4.8-10.8)
[2017-02-05] MEDS ORDERED: HYDROCODONE/APAP (5/325) TAB PO PRN ×3 (09:30)
[2017-02-05] MEDS ORDERED: BISACODYL 10 MG SUPP PR PRN (09:30)
[2017-02-05] MEDS ORDERED: morphine (ER) 15 MG TAB PO PRN (09:30)
[2017-02-05] MEDS ORDERED: ACETAMINOPHEN 325 MG TAB PO PRN (09:30)
[2017-02-05] MEDS ORDERED: DOCUSATE SODIUM 100 MG CAP PO PRN (09:30)
[2017-02-05] MEDS ORDERED: morphine LIQ (10 MG/5 ML) CUP PO PRN (10:00)
[2017-02-05] MEDS: HEPARIN 5,000 UNIT/0.5 ML VIAL SC SCH ×2 (10:23→20:20)
--- NOTE | 2017-02-05 10:47 | HP ---
DATE OF ADMISSION: 02/04/2017 CHIEF COMPLAINT: Status post fall with left hip fracture. HISTORY OF PRESENT ILLNESS: This is a 71-year-old male with a past medical history of end-stage jordan al disease, history of schizoaffective disorder and a recent history of right lower ankle fracture, who presents to [facility] from a custodial facility after a mechanical fall . The patient apparently was trying to get out of his wheelchair when he had a fall with severe lef t-sided hip pain. As a result, the patient came into the emergency room for evaluation. Upon arriv al, the patient had a x-ray of his hip which showed findings of an impacted fracture of the left hip with varus angulation. The patient was also noted to be hyperkalemic with potassium 6.2. The rhona ent was admitted to telemetry, had urgent hemodialysis. Overnight, the patient was noted to be conf used, was placed in restraints. This morning upon my evaluation of the patient, he is currently stable. Denies any fevers, chills, nausea, vomiting. The patient is complaining about hip pain. PAST MEDICAL HISTORY: History of end-stage renal disease, history of hypertension. PAST SURGICAL HISTORY: Status post PermCath placement, status post appendectomy, status post cholec ystectomy, status post right ORIF of the ankle. MEDICATIONS: The patient's medications have been reviewed and reconciled. ALLERGIES: NO KNOWN DRUG ALLERGIES. SOCIAL HISTORY: Does not drink, smoke or do drugs. FAMILY HISTORY: Noncontributory. REVIEW OF SYSTEMS: A 14-point review of systems was conducted. Pertinent positives stated in HPI, otherwise negative. PHYSICAL EXAMINATION: VITAL SIGNS: Blood pressure is 137/70, temperature 98.4, pulse 100, respirations 19. HEENT: Head is normocephalic. NECK: Supple. HEART: Regular rate. LUNGS: Show diminished breath sounds at the base. ABDOMEN: Soft, nontender to palpation. No rebound or guarding. EXTREMITIES: Negative for clubbing, cyanosis, no edema. DERMATOLOGIC: No rashes. MUSCULOSKELETAL: Positive tenderness to palpation in the left hip. NEUROLOGIC: No focal deficits. DERMATOLOGIC: No rashes. LABORATORY DATA: Shows a white count of 7.7, hemoglobin 9.1, platelet count is 122. The patient's BMP is currently pending. ASSESSMENT AND PLAN: This is a 75-year-old who presents with: 1. Left hip fracture. Plan is to place an orthopedic consult with Dr. Vidal for evaluation. We will continue pain control. 2. End-stage renal disease. The patient is on dialysis Sunday, Sunday, Sunday. Anticipate dial ysis today for 3 hours, 2K bath, calcium 2.5. 3. Hyperkalemia. The patient will be placed on a renal diet. Continue low-potassium bath with hem odialysis. 4. Anemia. Monitor hemoglobin and hematocrit levels. We will give Epogen as needed. 5. Mineral bone disorder. Monitor calcium and phosphorus levels. 6. Hypertension. Continue ultrafiltration dialysis. Continue current blood pressure regimen. 7. Chronic pain syndrome. Continue current pain regimen. 8. Status post open reduction internal fixation of the right ankle. Continue physical therapy. 9. History of coronary artery disease. Continue medical management. 10. Gastrointestinal and deep venous thrombosis prophylaxis. Continue proton pump inhibitor and se quential leg squeezers, Lovenox. Please note I spent up to 25 minutes face to face time with the patient. The patient is FULL CODE. Dictated By: CHELSI AGGARWAL/ED Conf#: [id number] DID#: [id number]
[2017-02-05 11:09] LABS: CALCIUM 9.2 mg/dl (8.4-10.2); CREATININE 7.01 mg/dl (0.61-1.24)
[2017-02-05] MEDS: CALCIUM ACETATE 667 MG CAP PO SCH ×2 (12:44→18:11)
[2017-02-05] MEDS: SEVELAMER 800 MG TAB PO SCH ×2 (12:45→18:11)
--- NOTE | 2017-02-05 17:07 | CONS ---
Date/Time of Note Date/Time of Note DATE: 02/05/17 TIME: 16:58 Assessment/Plan Assessment/Plan Chief Complaint/Hosp Course 1. CV preop evaluation 2. hip fracture 3. HTN: poorly controlled now 4. ESRD on HD 5. hyper K. 6/ hx multiple falls and injuries. 7 psych d/o. Probably schizoaffective disorder and intermittent agitation and mental status changes 8. hx loop recorder placement 9. Anemia probably related to chronic kidney disease/anemia of chronic disease. Follow and management as per internal medicine Recommendations: I will increase patient's carvedilol to control her blood pressure better. Clonidine will be added as well as the as needed dose only for now. Hemodialysis has been addressed by renal team and patient has already been dialyzed. Correction of electrolyte including potassium through the dialysis. Once the blood pressure is better controlled and is at least less than 160 no further cardiac workup would be indicated. Patient will be considered at that time optimized from the cardiac standpoint but with moderate risk of cardiovascular event given his multiple risk factors. Thank you for his referral. I will continue to follow along with you. SHABNAM WILSON MD FAC Problems: Consultation Date/Type/Reason Admit Date/Time Feb 04, 2017 at 13:05 Date of Consultation: Feb 05, 2017 Type of Consultation: cardiology Reason for Consultation CV preop evaluation Referring Provider: CHELSI ASIF of Present Illness CC: s/p fall with hip pain HPI: Thank you for this referral. The patient from extensive review of the old chart discussion with the physicians and staff. This is a 71-year-old gentleman who was admitted after a fall. Patient has had recent ankle surgery. He is on wheelchair. He has had a mechanical fall while trying to get out of the wheelchair. Apparently has hip fracture has been admitted for further workup. Patient also noted to be severely hyperkalemic. Has had dialysis done and potassium was improved. He continues to be hypertensive as well. Patient does not walk much. He denies any chest pain or pressure to me denies any palpitation to me denies any shortness of breath to me. PAST MEDICAL HISTORY: As stated above. 1. History of end-stage renal disease. 2. History of hypertension. 3. History of psych disorder including possibly schizoaffective disorder 4. Moderate aortic stenosis 5. History of multiple falls PAST SURGICAL HISTORY: 1. Status post PermCath placement. 2. Status post appendectomy. 3. Status post cholecystectomy. 4. [facility] loop recorder place in June 2016. he does not know why though. 5. hx of ankle surgery this year in october. MEDICATIONS: Have been reviewed but I am not sure pt has been very compliant with them ALLERGIES: NO KNOWN DRUG ALLERGIES. SOCIAL HISTORY: Does not drink, smoke, or do drugs. FAMILY HISTORY: He denies any history of any coronary artery disease. Review of system as above only he denies all other to me. Past Surgical History Past Surgical Hx: other Social History Smoking Status: Former smoker Exam/Review of Systems Vital Signs Vitals Vital Signs Date Time Temp Pulse Resp B/P Pulse Ox O2 Delivery O2 Flow Rate FiO2 02/05/17 16:14 92 02/05/17 16:12 98.0 19 183/78 93 02/05/17 14:00 Nasal Cannula 4.0 Intake and Output 02/04/17 02/04/17 02/05/17 15:00 23:00 07:00 Intake Total 500 ml Output Total 3500 ml Balance -3000 ml Exam General: thin man,. no acute distress HEENT: NC/AT. pupils are equal. round. NECK: NO JVD. no stridor. CV: RRR. systolic ejection murmur; no gallop or rubs. PULM: no wheezing or rhonchi. GI: SOFT, NT, ND, no rebound or guarding Extremity: no significant LE edema. no clubbing. neuro: awake and alert, OX3. Psych: calm and pleasant rectal: deferred : deferred ECG reviewed: NSR nonspecific ST abn ECHO October 2016: 1. Normal left ventricular systolic function. Normal left ventricular cavity size. Moderate concentric left ventricular hypertrophy. Ejection fraction is visually estimated at 60 %. Tissue Doppler/Mitral Doppler indices are consistent with impaired relaxation (Stage I diastolic dysfunction). 2. There is mild enlargement of left atrium. 3. Mild mitral leaflet calcification. Mild mitral annular calcification. Trace mitral regurgitation. 4. Moderate aortic stenosis. Aortic valve Max velocity 3.30 m/sec. Max PG 44.00 mmHg. Mean PG 19.00 mmHg. Aortic valve area 1.12 cm2. Aortic cusps appear moderately calcified. Trace to mild aortic valve regurgitation. 5. Normal appearance of the tricuspid valve. Estimated peak PA systolic pressure 40 mmHg. There is mild tricuspid regurgitation. hip xray: IMPRESSION: 1. Comminuted, mildly impacted intertrochanteric and basicervical fracture of the left hip with varus angulation of the distal fragment. 2. Decreased bone mineral density. 3. Partially assessed right hip ORIF hardware. Results Result Diagram: 02/05/17 0551 02/05/17 0549 Results 24 hrs Laboratory Tests Test 02/05/17 05:49 02/05/17 05:51 Sodium Level 148 H Potassium Level 4.0 # Chloride Level 108 Carbon Dioxide Level 31 Anion Gap 13 Blood Urea Nitrogen 45 #H Creatinine 7.01 #H Glucose Level 96 Calcium Level 9.2 White Blood Count 7.7 # Red Blood Count 3.15 L Hemoglobin 9.1 L Hematocrit 29.1 L Mean Corpuscular Volume 92.4 Mean Corpuscular Hemoglobin 28.9 L Mean Corpuscular Hemoglobin Concent 31.3 L Red Cell Distribution Width 16.1 H Platelet Count 122 L Mean Platelet Volume 10.2 Neutrophils % 78.9 H Lymphocytes % 7.0 L Monocytes % 12.5 H Eosinophils % 1.0 Basophils % 0.3 Nucleated Red Blood Cells % 0.0 Neutrophils # 6.1 Lymphocytes # 0.5 L Monocytes # 1.0 H Eosinophils # 0.1 Basophils # 0.0 Nucleated Red Blood Cells # 0.0 Medications Medications Current Medications Morphine Sulfate (morphine) 2 mg Q4H PRN IV PAIN LEVEL 4-6; Start 02/04/17 at 15:30 Heparin Sodium (Porcine) (Heparin (5000 Units/0.5 ml)) 5,000 unit BID SC Last administered on 02/05/17t 10:23; Admin Dose 5,000 UNIT; Start 02/05/17 at 09: 00 Lorazepam (Ativan) 1 mg Q8H PRN IV ANXIETY; Start 02/05/17 at 01:30 Acetaminophen (Tylenol Tab) 650 mg Q4 PRN PO PAIN AND OR ELEVATED TEMP; Start 02/05/17 at 09:30 Bisacodyl (Dulcolax Supp) 10 mg PRN PRN [place] CONSTIPATION; Start 02/05/17 at 09: 30 Calcium Carbonate (Oyster Shell Calcium) 0.5 gm DAILY PO ; Start 02/06/17 at 09 :00 Carvedilol (Coreg) 3.125 mg BID PO ; Start 02/05/17 at 21:00 Clonidine (Catapres) 0.2 mg Q6 PRN PO ELEVATED BLOOD PRESSURE Last administered on 02/05/17t 16:41; Admin Dose 0.2 MG; Start 02/05/17 at 09:30 Docusate Sodium (Colace) 200 mg QHS PRN PO CONSTIPATION; Start 02/05/17 at 09: 30 Acetaminophen/ Hydrocodone Bitart ([place] (5/325)) 1 tab DAILY PRN PO PAIN MANAGMENT; Start 02/05/17 at 09:30 Acetaminophen/ Hydrocodone Bitart ([place] (5/325)) 1 tab Q6 PRN PO PAIN LEVEL 4- 6; Start 02/05/17 at 09:30 Acetaminophen/ Hydrocodone Bitart ([place] (5/325)) 2 tab Q6 PRN PO PAIN LEVEL 7- 10; Start 02/05/17 at 09:30 Multivit/Ca Carb/ B Cmplx/FA/Prenat (Mel-Laura) 1 tab DAILY PO ; Start at 09:00 Pantoprazole (Protonix Tab) 40 mg DAILY PO ; Start 02/06/17 at 09:00 Morphine Sulfate (morphine) 2 mg Q4H PRN PO PAIN; Start 02/05/17 at 10:00 SHABNAM WILSON MD Feb 05, 2017 17:07
--- NOTE | 2017-02-05 17:10 | CONS ---
Date/Time of Note Date/Time of Note DATE: 02/05/17 TIME: 17:10 Consult Date/Type/Reason Admit Date/Time Feb 04, 2017 at 13:05 Initial Consult Date 02/05/17 Type of Consultation: cardiology Ordering Provider: CHELSI ASIF DO Objective Vital Signs Date Time Temp Pulse Resp B/P Pulse Ox O2 Delivery O2 Flow Rate FiO2 02/05/17 16:14 92 02/05/17 16:12 98.0 19 183/78 93 02/05/17 14:00 Nasal Cannula 4.0 Intake and Output 02/04/17 02/04/17 02/05/17 15:00 23:00 07:00 Intake Total 500 ml Output Total 3500 ml Balance -3000 ml Results/Medications Result Diagram: 02/05/17 0551 02/05/17 0549 Results 24 hrs Laboratory Tests Test 02/05/17 05:49 02/05/17 05:51 Sodium Level 148 H Potassium Level 4.0 # Chloride Level 108 Carbon Dioxide Level 31 Anion Gap 13 Blood Urea Nitrogen 45 #H Creatinine 7.01 #H Glucose Level 96 Calcium Level 9.2 White Blood Count 7.7 # Red Blood Count 3.15 L Hemoglobin 9.1 L Hematocrit 29.1 L Mean Corpuscular Volume 92.4 Mean Corpuscular Hemoglobin 28.9 L Mean Corpuscular Hemoglobin Concent 31.3 L Red Cell Distribution Width 16.1 H Platelet Count 122 L Mean Platelet Volume 10.2 Neutrophils % 78.9 H Lymphocytes % 7.0 L Monocytes % 12.5 H Eosinophils % 1.0 Basophils % 0.3 Nucleated Red Blood Cells % 0.0 Neutrophils # 6.1 Lymphocytes # 0.5 L Monocytes # 1.0 H Eosinophils # 0.1 Basophils # 0.0 Nucleated Red Blood Cells # 0.0 Medications Current Medications Morphine Sulfate (morphine) 2 mg Q4H PRN IV PAIN LEVEL 4-6; Start 02/04/17 at 15:30 Heparin Sodium (Porcine) (Heparin (5000 Units/0.5 ml)) 5,000 unit BID SC Last administered on 02/05/17t 10:23; Admin Dose 5,000 UNIT; Start 02/05/17 at 09: 00 Lorazepam (Ativan) 1 mg Q8H PRN IV ANXIETY; Start 02/05/17 at 01:30 Acetaminophen (Tylenol Tab) 650 mg Q4 PRN PO PAIN AND OR ELEVATED TEMP; Start 02/05/17 at 09:30 Bisacodyl (Dulcolax Supp) 10 mg PRN PRN [place] CONSTIPATION; Start 02/05/17 at 09: 30 Calcium Carbonate (Oyster Shell Calcium) 0.5 gm DAILY PO ; Start 02/06/17 at 09 :00 Carvedilol (Coreg) 3.125 mg BID PO ; Start 02/05/17 at 21:00 Clonidine (Catapres) 0.2 mg Q6 PRN PO ELEVATED BLOOD PRESSURE Last administered on 02/05/17t 16:41; Admin Dose 0.2 MG; Start 02/05/17 at 09:30 Docusate Sodium (Colace) 200 mg QHS PRN PO CONSTIPATION; Start 02/05/17 at 09: 30 Acetaminophen/ Hydrocodone Bitart ([place] (5/325)) 1 tab DAILY PRN PO PAIN MANAGMENT; Start 02/05/17 at 09:30 Acetaminophen/ Hydrocodone Bitart ([place] (5/325)) 1 tab Q6 PRN PO PAIN LEVEL 4- 6; Start 02/05/17 at 09:30 Acetaminophen/ Hydrocodone Bitart ([place] (5/325)) 2 tab Q6 PRN PO PAIN LEVEL 7- 10; Start 02/05/17 at 09:30 Multivit/Ca Carb/ B Cmplx/FA/Prenat (Mel-Laura) 1 tab DAILY PO ; Start at 09:00 Pantoprazole (Protonix Tab) 40 mg DAILY PO ; Start 02/06/17 at 09:00 Morphine Sulfate (morphine) 2 mg Q4H PRN PO PAIN; Start 02/05/17 at 10:00 Assessment/Plan Chief Complaint/Hosp Course 1. CV preop evaluation 2. hip fracture 3. HTN: poorly controlled now 4. ESRD on HD 5. hyper K. 6/ hx multiple falls and injuries. 7 psych d/o. Probably schizoaffective disorder and intermittent agitation and mental status changes 8. hx loop recorder placement 9. Anemia probably related to chronic kidney disease/anemia of chronic disease. Follow and management as per internal medicine Recommendations: I will increase patient's carvedilol to control her blood pressure better. Clonidine will be added as well as the as needed dose only for now. Hemodialysis has been addressed by renal team and patient has already been dialyzed. Correction of electrolyte including potassium through the dialysis. Once the blood pressure is better controlled and is at least less than 160 no further cardiac workup would be indicated. Patient will be considered at that time optimized from the cardiac standpoint but with moderate risk of cardiovascular event given his multiple risk factors. Thank you for his referral. I will continue to follow along with you. SHABNAM WILSON MD [facility] Problems: SHABNAM WILSON MD Feb 05, 2017 17:10
--- NOTE | 2017-02-05 20:58 | CONS ---
DATE OF ADMISSION: 02/04/2017 DATE OF CONSULTATION: 02/05/2017 TYPE OF CONSULTATION: Infectious disease. REASON FOR CONSULTATION: Antibiotic management. HISTORY OF PRESENT ILLNESS: Sergio Moran is a 71-year-old male who comes in with status post fal l with left hip fracture. His past problems include: 1. End-stage renal disease, on hemodialysis. 2. Status post PermCath placement. 3. History of schizoaffective disorder. 4. Recent history of left ankle fracture. 5. Hypertension. 6. Status post appendectomy. 7. Status post cholecystectomy. 8. Status post right open reduction and internal fixation of the ankle. The patient had a mechanical fall and developed severe left-sided hip pain. He came to the emergenc y room or was brought to the emergency room. X-ray showed impacted fracture of left hip with varus angulation. The patient was also noted to be hyperkalemic with potassium of 6.2. He came to [facility] where he had urgent hemodialysis. The patient was noted to be confused and placed in restraints . On admission, his white count was 7.7, hemoglobin 9.1, platelet count 122,000. An orthopedic con sult was placed with Dr. Vidal. A chest x-ray showed tunneled right internal jugular vein dialysis ca theter with the tip in the lower superior vena cava, small right pleural effusion, mild right basila r atelectasis, cardiomegaly, new cardiac recorder overlying the left-sided chest, no acute inf iltrates. MRSA screening is in process. White count today 7.7, H and H 9.1 and 29.1, platelet coun t 122,000. BUN and creatinine are 45/7.01, potassium down to 4.0. PAST MEDICAL HISTORY: Operations as outlined. FAMILY HISTORY: Noncontributory. SOCIAL HISTORY: He does not smoke, drink or abuse drugs. ALLERGIES: NONE TO PENICILLIN, SULFA OR FOODS. MEDICATIONS: Per chart. REVIEW OF SYSTEMS: As per HPI. PHYSICAL EXAMINATION: GENERAL: The patient is a chronically ill-appearing male who is awake, responsive, in no acute dist ress. VITAL SIGNS: Stable. He is afebrile. SKIN: Without generalized rash. HEENT: Within normal limits. NECK: Supple. LYMPH NODES: None palpable. CHEST: Decreased breath sounds at the bases. HEART: Without murmur or gallop. ABDOMEN: Soft, nontender, without organosplenomegaly or masses. EXTREMITIES: Without cyanosis, clubbing or edema. The patient has tenderness over the left hip. RECTAL AND GENITAL: Deferred. NEUROLOGIC: No focal neurological abnormalities. IMPRESSION AND PLAN: The patient is currently in for a fracture of his hip. He has numerous proble ms and is certainly a candidate for aspiration. At the present time, however, I would not add any a ntibiotics to his therapy. I will dictate my findings to Dr. Tay. Dictated By: STANISLAW MIGUEL MD, JD/NTS Conf#: [id number] DID#: [id number] CC: JORDAN ESPINOZA MD;*EndCC*
[2017-02-05] MEDS: LORAZEPAM 2 MG INJ IV PRN (22:12)
[2017-02-06] VITALS (13 sets, daily range): BP systolic 127–184; BP diastolic 59–88; PULSE 68–85; RESP 16–17
[2017-02-06] MEDS: morphine 2 MG INJ IV PRN ×2 (02:21→18:47)
[2017-02-06] MEDS: hydrALAzine 20 MG INJ IV PRN ×2 (04:32→21:31)
[2017-02-06 08:07] LABS: ABNORMAL IP MESSAGE 1; BASOPHILS % 0.3 % (0.0-2.0); EOSINOPHILS # 0.1 10^3/ul (0.0-0.5); EOSINOPHILS % 0.9 % (0.0-7.0); HEMATOCRIT 32.1 % (42.0-52.0); HEMOGLOBIN 9.7 g/dl (14.0-18.0); LYMPHOCYTES # 0.9 10^3/ul (0.8-2.9); LYMPHOCYTES % 9.1 % (15.0-51.0); MEAN CORPUSCULAR HEMOGLOBIN 28.4 pg (29.0-33.0); MEAN CORPUSCULAR HGB CONC 30.2 g/dl (32.0-37.0); MEAN CORPUSCULAR VOLUME 93.9 fl (82.0-101.0); MONOCYTE # 1.5 10^3/ul (0.3-0.9); MONOCYTES % 14.9 % (0.0-11.0); NEUTROPHIL # 7.5 10^3/ul (1.6-7.5); NEUTROPHILS % 74.5 % (39.0-77.0); PLATELET COUNT 151 10^3/UL (140-415); POSITIVE DIFF @See below; RED BLOOD COUNT 3.42 10^6/ul (4.70-6.10); WHITE BLOOD COUNT 10.1 10^3/ul (4.8-10.8)
[2017-02-06 08:40] LABS: CALCIUM 9.5 mg/dl (8.4-10.2); PHOSPHORUS 3.2 mg/dl (2.5-4.9); POTASSIUM 4.4 mmol/L (3.5-5.1)
[2017-02-06] MEDS: CALCIUM ACETATE 667 MG CAP PO SCH ×3 (08:48→18:12)
[2017-02-06] MEDS: SEVELAMER 800 MG TAB PO SCH ×3 (08:49→18:12)
[2017-02-06] MEDS: PANTOPRAZOLE (EC) 40 MG TAB PO SCH (08:49)
[2017-02-06] MEDS: CALCIUM CARBONATE 1.25 GM TAB PO SCH (08:49)
[2017-02-06] MEDS: HEPARIN 5,000 UNIT/0.5 ML VIAL SC SCH ×2 (08:51→21:38)
[2017-02-06] MEDS: MULTIVIT/CA CARB/B CMPLX/FA TAB PO SCH (08:56)
--- NOTE | 2017-02-06 09:34 | PN ---
DATE: 02/06/2017 SUBJECTIVE: The patient is stable, lethargic. Patient remains in restraints as he attempts to pull out his IV lines. The patient had hemodialysis yesterday, tolerated well. OBJECTIVE: VITAL SIGNS: Blood pressure is 127/59, respirations 16, pulse 67, temperature 98.1. HEENT: Head is normocephalic. NECK: Supple. HEART: Regular rate. LUNGS: Show diminished breath sounds at the base. ABDOMEN: Soft, nontender to palpation without rebound or guarding. EXTREMITIES: Negative for clubbing, cyanosis, no edema. DERMATOLOGIC: No rashes. EXTREMITIES: Positive wound on the left lower extremity NEUROLOGIC: No focal deficits. LABORATORY DATA: From 02/06 is currently pending. ASSESSMENT AND PLAN: 1. Left hip fracture. Etiology is secondary to a fall. Orthopedist, Dr. Vidal, was consulted yester day. We will consult him again today. Unclear if patient will require surgical intervention. We w ill continue to monitor, continue pain control. 2. Right lower extremity wound. We will follow up with Dr. Vidal for evaluation. The patient had a recent surgical intervention by Dr. Vidal. 3. End-stage renal disease. Plan for hemodialysis tomorrow. 4. Hyperkalemia secondary to end-stage renal disease, improved. 5. Anemia. Monitor hemoglobin and hematocrit levels. Continue Epogen. 6. Mineral bone disorder. Monitor calcium and phosphorus levels. Continue phosphate binders. 7. Hypertension, improved. Continue ultrafiltration dialysis. 8. Chronic pain syndrome. Continue current pain regimen. 9. Status post open reduction internal fixation of the right ankle. Continue to monitor. Continue pain control and physical therapy. 10. History of coronary artery disease. Continue medical management. 11. Gastrointestinal and deep venous thrombosis prophylaxis. Continue proton pump inhibitor and Lo venox. Dictated By: CHELSI AGGARWAL/ED Conf#: [id number] DID#: [id number]
--- NOTE | 2017-02-06 14:52 | PN ---
DATE: 02/06/2017 SUBJECTIVE: The patient is awake, looks comfortable, denies pain, no fevers. Right ankle wound culture grew staph species. INDWELLINGS: Right chest Perm-A-Cath. PHYSICAL EXAMINATION: GENERAL: This is a chronically ill-appearing, fragile well-developed elderly man who is awake, in no distress. HEENT: Head atraumatic, normocephalic. Sclerae anicteric. Buccal mucosa dry. NECK: Supple. CHEST: Rise symmetrical. Breath sounds clear, diminished to bases. HEART: S1, S2. ABDOMEN: Soft. Bowel tones present. EXTREMITIES: Left lower extremity dressing intact. ASSESSMENT: 1. Right lower extremity chronic wound which is healed with the presence of dry scab and culture grew staph species, possibly skin contaminant. 2. End-stage renal disease, hemodialysis dependent. 3. Hypertension. 4. History of schizoaffective disorder. 5. Anemia. PLAN: Remains stable. We will keep him off antibiotics for now and continue present care as per primary team and consultants. Dictated By: ERIC GARCIA CODING ADVISOR for STANISLAW TIM/ED Conf#: [id number] DID#: [id number] LILIAN
--- NOTE | 2017-02-06 15:57 | CONS ---
Date/Time of Note Date/Time of Note DATE: 02/06/17 TIME: 15:54 Consult Date/Type/Reason Admit Date/Time Feb 04, 2017 at 13:05 Initial Consult Date 02/05/17 Type of Consultation: cardiology Ordering Provider: CHELSI ASIF DO Subjective cardiology follow up note: S: DW/ staff and rhythm was reviewed. pt remains in NSR/ sinus tachy. NO CHEST PAIN OR pressure. he still has hip pain with any movement no PND orthopnea O: General: thin man,. no acute distress HEENT: NC/AT. pupils are equal. round. NECK: NO JVD. no stridor. CV: RRR. systolic ejection murmur; no gallop or rubs. PULM: no wheezing or rhonchi. GI: SOFT, NT, ND, no rebound or guarding Extremity: no significant LE edema. no clubbing. neuro: awake and alert, OX3. Psych: calm and pleasant rectal: deferred : deferred ECG reviewed: NSR nonspecific ST abn ECHO October 2016: 1. Normal left ventricular systolic function. Normal left ventricular cavity size. Moderate concentric left ventricular hypertrophy. Ejection fraction is visually estimated at 60 %. Tissue Doppler/Mitral Doppler indices are consistent with impaired relaxation (Stage I diastolic dysfunction). 2. There is mild enlargement of left atrium. 3. Mild mitral leaflet calcification. Mild mitral annular calcification. Trace mitral regurgitation. 4. Moderate aortic stenosis. Aortic valve Max velocity 3.30 m/sec. Max PG 44.00 mmHg. Mean PG 19.00 mmHg. Aortic valve area 1.12 cm2. Aortic cusps appear moderately calcified. Trace to mild aortic valve regurgitation. 5. Normal appearance of the tricuspid valve. Estimated peak PA systolic pressure 40 mmHg. There is mild tricuspid regurgitation. hip xray: IMPRESSION: 1. Comminuted, mildly impacted intertrochanteric and basicervical fracture of the left hip with varus angulation of the distal fragment. 2. Decreased bone mineral density. 3. Partially assessed right hip ORIF hardware. Objective Vital Signs Date Time Temp Pulse Resp B/P Pulse Ox O2 Delivery O2 Flow Rate FiO2 02/06/17 15:13 98.6 70 17 151/70 100 02/06/17 08:00 Nasal Cannula 2.0 Intake and Output 02/05/17 02/05/17 02/06/17 15:00 23:00 07:00 Intake Total 300 ml 350 ml 450 ml Output Total 3300 ml Balance -3000 ml 350 ml 450 ml Results/Medications Result Diagram: 02/06/1770502/06/17705 Results 24 hrs Laboratory Tests Test 02/06/17 07:06 White Blood Count 10.1 # Red Blood Count 3.42 L Hemoglobin 9.7 L Hematocrit 32.1 L Mean Corpuscular Volume 93.9 Mean Corpuscular Hemoglobin 28.4 L Mean Corpuscular Hemoglobin Concent 30.2 L Red Cell Distribution Width 16.0 H Platelet Count 151 # Mean Platelet Volume 10.0 Neutrophils % 74.5 Lymphocytes % 9.1 L Monocytes % 14.9 H Eosinophils % 0.9 Basophils % 0.3 Nucleated Red Blood Cells % 0.0 Neutrophils # 7.5 Lymphocytes # 0.9 Monocytes # 1.5 H Eosinophils # 0.1 Basophils # 0.0 Nucleated Red Blood Cells # 0.0 Sodium Level 146 H Potassium Level 4.4 Chloride Level 103 Carbon Dioxide Level 32 H Anion Gap 15 Blood Urea Nitrogen 45 H Creatinine 7.00 H Glucose Level 103 Calcium Level 9.5 Phosphorus Level 3.2 Magnesium Level 2.0 Medications Current Medications Morphine Sulfate (morphine) 2 mg Q4H PRN IV PAIN LEVEL 4-6 Last administered on 02/06/17 02:21; Admin Dose 2 MG; Start 02/04/17 at 15:30 Heparin Sodium (Porcine) (Heparin (5000 Units/0.5 ml)) 5,000 unit BID SC Last administered on 02/06/17 08:51; Admin Dose 5,000 UNIT; Start 02/05/17 at 09: 00 Lorazepam (Ativan) 1 mg Q8H PRN IV ANXIETY Last administered on 02/05/17 22: 12; Admin Dose 1 MG; Start 02/05/17 at 01:30 Acetaminophen (Tylenol Tab) 650 mg Q4 PRN PO PAIN AND OR ELEVATED TEMP; Start 02/05/17 at 09:30 Bisacodyl (Dulcolax Supp) 10 mg PRN PRN [place] CONSTIPATION; Start 02/05/17 at 09: 30 Calcium Carbonate (Oyster Shell Calcium) 0.5 gm DAILY PO Last administered on 02/06/17 08:49; Admin Dose 0.5 GM; Start 02/06/17 at 09:00 Carvedilol (Coreg) 3.125 mg BID PO Last administered on 02/06/17 08:49; Admin Dose 3.125 MG; Start 02/05/17 at 21:00 Clonidine (Catapres) 0.2 mg Q6 PRN PO ELEVATED BLOOD PRESSURE Last administered on 02/06/17 04:00; Admin Dose 0.2 MG; Start 02/05/17 at 09:30 Docusate Sodium (Colace) 200 mg QHS PRN PO CONSTIPATION; Start 02/05/17 at 09: 30 Acetaminophen/ Hydrocodone Bitart ([place] (5/325)) 1 tab DAILY PRN PO PAIN MANAGMENT; Start 02/05/17 at 09:30 Acetaminophen/ Hydrocodone Bitart ([place] (5/325)) 1 tab Q6 PRN PO PAIN LEVEL 4- 6; Start 02/05/17 at 09:30 Acetaminophen/ Hydrocodone Bitart ([place] (5/325)) 2 tab Q6 PRN PO PAIN LEVEL 7- 10; Start 02/05/17 at 09:30 Multivit/Ca Carb/ B Cmplx/FA/Prenat (Mel-Laura) 1 tab DAILY PO Last administered on 02/06/17 08:56; Admin Dose 1 TAB; Start 02/06/17 at 09:00 Pantoprazole (Protonix Tab) 40 mg DAILY PO Last administered on 02/06/17 08: 49; Admin Dose 40 MG; Start 02/06/17 at 09:00 Morphine Sulfate (morphine) 2 mg Q4H PRN PO PAIN Last administered on 17:47; Admin Dose 2 MG; Start 02/05/17 at 10:00 Clonidine (Catapres) 0.1 mg Q6H PRN PO sbp > 160 but less than 190 Last administered on 02/06/17 02:21; Admin Dose 0.1 MG; Start 02/05/17 at 17:30 Hydralazine HCl (Apresoline) 10 mg Q6H PRN IV ELEVATED BLOOD PRESSURE Last administered on 02/06/17 04:32; Admin Dose 10 MG; Start 02/06/17 at 04:30 Assessment/Plan Chief Complaint/Hosp Course 1. CV preop evaluation 2. hip fracture 3. HTN: better controlled now 4. ESRD on HD 5. hyper K. 6/ hx multiple falls and injuries. 7 psych d/o. Probably schizoaffective disorder and intermittent agitation and mental status changes 8. hx loop recorder placement 9. Anemia probably related to chronic kidney disease/anemia of chronic disease. Follow and management as per internal medicine Recommendations: I will cont patient's carvedilol. Clonidine will be added as well as the as needed dose only for now. Hemodialysis has been addressed by renal team and patient has already been dialyzed. Correction of electrolyte including potassium through the dialysis. pt at this point is optimized from cardiac stand point for ortho surgery and no further cardiac workup would be indicated. pt has with moderate risk of cardiovascular event given his multiple risk factors. Thank you for his referral. I will continue to follow along with you. SHABNAM WILSON MD [facility] Problems: SHABNAM WILSON MD Feb 06, 2017 15:57
[2017-02-06] MEDS: LORAZEPAM 2 MG INJ IV PRN (21:30)
[2017-02-07] VITALS (36 sets, daily range): BP systolic 90–190; BP diastolic 51–98; PULSE 75–99; RESP 12–22
[2017-02-07] MEDS: morphine 2 MG INJ IV PRN ×2 (00:24→22:30)
--- NOTE | 2017-02-07 04:08 | CONS ---
DATE OF ADMISSION: 02/04/2017 DATE OF CONSULTATION: 02/06/2017 HISTORY OF PRESENT ILLNESS: Patient is a 71-year-old male, who was admitted on February 04, 2017, when he was brought into the emergency room because of the painful limits of motion involving his left hip. According to available information, he was trying to get out of his wheelchair when he lost his balance and fell, landing on his left buttock. Following the fall, he was not able to stand up or walk because of the severe pain involving the left hip. He is known to have multiple medical problems including, end- stage renal disease on dialysis, hyperkalemia, anemia, hypertension, chronic pain syndrome, coronary artery disease. He also had a bimalleolar fracture of the right ankle, which was treated with open reduction and internal fixation, outcome of which is satisfactory with satisfactory healing and good alignment. He also has a history of schizoaffective disorder and senile dementia. PHYSICAL EXAMINATION: GENERAL APPEARANCE: Revealed a 71-year-old male, supine position in bed. He was not able to participate in any history taking. MUSCULOSKELETAL EXAMINATION: There was a obvious shortening and abnormal external rotation of the left lower extremity. There was tenderness and swelling around the left hip and the range of motion of the left hip could not be tested because of the severe pain. There were no signs of acute neurovascular compromise involving the left lower extremity. LABORATORY: X-rays of the left hip revealed a presence of intertrochanteric fracture, which is comminuted and unstable and displaced. DIAGNOSTIC IMPRESSION: Recent orthopedic surgical problem is a severely comminuted and unstable intertrochanteric fracture of the left hip. TREATMENT PLAN: Carry out open reduction and internal fixation as soon as he can be medically cleared for surgery. Dictated By: Fidel Vidal MD /ramiro/tejinder /Document#: [id number]
[2017-02-07] MEDS: hydrALAzine 20 MG INJ IV PRN ×2 (04:16→22:32)
[2017-02-07] MEDS: CALCIUM ACETATE 667 MG CAP PO SCH ×3 (07:55→17:15)
[2017-02-07] MEDS: SEVELAMER 800 MG TAB PO SCH ×3 (07:55→17:16)
--- NOTE | 2017-02-07 08:36 | CONS ---
Date/Time of Note Date/Time of Note DATE: 02/07/17 TIME: 08:34 Consult Date/Type/Reason Admit Date/Time Feb 04, 2017 at 13:05 Initial Consult Date 02/05/17 Type of Consultation: cardiology Ordering Provider: CHELSI ASIF DO Subjective cardiology follow up note: S: DW/ staff and rhythm was reviewed. pt remains in NSR/ sinus tachy. NO CHEST PAIN OR pressure. he still has hip pain with movement but not at rest. no PND orthopnea O: General: thin man,. no acute distress HEENT: NC/AT. pupils are equal. round. NECK: NO JVD. no stridor. CV: RRR. systolic ejection murmur; no gallop or rubs. PULM: no wheezing or rhonchi. GI: SOFT, NT, ND, no rebound or guarding Extremity: no significant LE edema. no clubbing. neuro: awake and alert, OX3. Psych: calm and pleasant rectal: deferred : deferred ECG reviewed: NSR nonspecific ST abn ECHO October 2016: 1. Normal left ventricular systolic function. Normal left ventricular cavity size. Moderate concentric left ventricular hypertrophy. Ejection fraction is visually estimated at 60 %. Tissue Doppler/Mitral Doppler indices are consistent with impaired relaxation (Stage I diastolic dysfunction). 2. There is mild enlargement of left atrium. 3. Mild mitral leaflet calcification. Mild mitral annular calcification. Trace mitral regurgitation. 4. Moderate aortic stenosis. Aortic valve Max velocity 3.30 m/sec. Max PG 44.00 mmHg. Mean PG 19.00 mmHg. Aortic valve area 1.12 cm2. Aortic cusps appear moderately calcified. Trace to mild aortic valve regurgitation. 5. Normal appearance of the tricuspid valve. Estimated peak PA systolic pressure 40 mmHg. There is mild tricuspid regurgitation. hip xray: IMPRESSION: 1. Comminuted, mildly impacted intertrochanteric and basicervical fracture of the left hip with varus angulation of the distal fragment. 2. Decreased bone mineral density. 3. Partially assessed right hip ORIF hardware. Objective Vital Signs Date Time Temp Pulse Resp B/P Pulse Ox O2 Delivery O2 Flow Rate FiO2 02/07/17 07:43 98.4 78 16 160/81 98 02/07/17 02:00 Room Air 02/06/17 20:00 2.0 Intake and Output 02/06/17 02/06/1702/07/17 15:00 23:00 07:00 Intake Total 950 ml 400 ml Balance 950 ml 400 ml Results/Medications Result Diagram: 02/06/1770502/06/17705 Medications Current Medications Morphine Sulfate (morphine) 2 mg Q4H PRN IV PAIN LEVEL 4-6 Last administered on 02/07/17 00:24; Admin Dose 2 MG; Start 02/04/17 at 15:30 Heparin Sodium (Porcine) (Heparin (5000 Units/0.5 ml)) 5,000 unit BID SC Last administered on 02/06/17 21:38; Admin Dose 5,000 UNIT; Start 02/05/17 at 09: 00 Lorazepam (Ativan) 1 mg Q8H PRN IV ANXIETY Last administered on 02/06/17 21: 30; Admin Dose 1 MG; Start 02/05/17 at 01:30 Acetaminophen (Tylenol Tab) 650 mg Q4 PRN PO PAIN AND OR ELEVATED TEMP; Start 02/05/17 at 09:30 Bisacodyl (Dulcolax Supp) 10 mg PRN PRN [place] CONSTIPATION; Start 02/05/17 at 09: 30 Calcium Carbonate (Oyster Shell Calcium) 0.5 gm DAILY PO Last administered on 02/06/17 08:49; Admin Dose 0.5 GM; Start 02/06/17 at 09:00 Carvedilol (Coreg) 3.125 mg BID PO Last administered on 02/06/17 21:36; Admin Dose 3.125 MG; Start 02/05/17 at 21:00 Clonidine (Catapres) 0.2 mg Q6 PRN PO ELEVATED BLOOD PRESSURE Last administered on 02/06/17 04:00; Admin Dose 0.2 MG; Start 02/05/17 at 09:30 Docusate Sodium (Colace) 200 mg QHS PRN PO CONSTIPATION; Start 02/05/17 at 09: 30 Acetaminophen/ Hydrocodone Bitart ([place] (5/325)) 1 tab DAILY PRN PO PAIN MANAGMENT; Start 02/05/17 at 09:30 Acetaminophen/ Hydrocodone Bitart ([place] (5/325)) 1 tab Q6 PRN PO PAIN LEVEL 4- 6; Start 02/05/17 at 09:30 Acetaminophen/ Hydrocodone Bitart ([place] (5/325)) 2 tab Q6 PRN PO PAIN LEVEL 7- 10; Start 02/05/17 at 09:30 Multivit/Ca Carb/ B Cmplx/FA/Prenat (Mel-Laura) 1 tab DAILY PO Last administered on 02/06/17 08:56; Admin Dose 1 TAB; Start 02/06/17 at 09:00 Pantoprazole (Protonix Tab) 40 mg DAILY PO Last administered on 02/06/17 08: 49; Admin Dose 40 MG; Start 02/06/17 at 09:00 Morphine Sulfate (morphine) 2 mg Q4H PRN PO PAIN Last administered on 17:47; Admin Dose 2 MG; Start 02/05/17 at 10:00 Clonidine (Catapres) 0.1 mg Q6H PRN PO sbp > 160 but less than 190 Last administered on 02/06/17 02:21; Admin Dose 0.1 MG; Start 02/05/17 at 17:30 Hydralazine HCl (Apresoline) 10 mg Q6H PRN IV ELEVATED BLOOD PRESSURE Last administered on 02/07/17 04:16; Admin Dose 10 MG; Start 02/06/17 at 04:30 Assessment/Plan Chief Complaint/Hosp Course 1. CV preop evaluation 2. hip fracture 3. HTN: better controlled now 4. ESRD on HD 5. hyper K. 6/ hx multiple falls and injuries. 7 psych d/o. Probably schizoaffective disorder and intermittent agitation and mental status changes 8. hx loop recorder placement 9. Anemia probably related to chronic kidney disease/anemia of chronic disease. Follow and management as per internal medicine Recommendations: inc carvedilol as needed/ tolerated. Clonidine as needed dose only for now. Hemodialysis has been addressed by renal team and patient has already been dialyzed. Correction of electrolyte including potassium has been done by renal through the dialysis. pt at this point is optimized from cardiac stand point for ortho surgery and no further cardiac workup would be indicated. pt has moderate risk of cardiovascular event given his multiple risk factors. Thank you for his referral. I will continue to follow along with you. SHABNAM WILSON MD [facility] Problems: SHABNAM WILSON MD Feb 07, 2017 08:36
[2017-02-07 08:42] LABS: BASOPHILS % 0.3 % (0.0-2.0); EOSINOPHILS # 0.2 10^3/ul (0.0-0.5); EOSINOPHILS % 1.9 % (0.0-7.0); HEMATOCRIT 35.1 % (42.0-52.0); HEMOGLOBIN 10.7 g/dl (14.0-18.0); LYMPHOCYTES # 0.7 10^3/ul (0.8-2.9); LYMPHOCYTES % 7.1 % (15.0-51.0); MEAN CORPUSCULAR HEMOGLOBIN 28.4 pg (29.0-33.0); MEAN CORPUSCULAR HGB CONC 30.5 g/dl (32.0-37.0); MEAN CORPUSCULAR VOLUME 93.1 fl (82.0-101.0); MEAN PLATELET VOLUME 9.6 fl (7.4-10.4); MONOCYTE # 1.2 10^3/ul (0.3-0.9); MONOCYTES % 12.4 % (0.0-11.0); NEUTROPHIL # 7.7 10^3/ul (1.6-7.5); PLATELET COUNT 174 10^3/UL (140-415); RED BLOOD COUNT 3.77 10^6/ul (4.70-6.10); WHITE BLOOD COUNT 9.9 10^3/ul (4.8-10.8)
[2017-02-07] MEDS: MULTIVIT/CA CARB/B CMPLX/FA TAB PO SCH (09:00)
[2017-02-07] MEDS: PANTOPRAZOLE (EC) 40 MG TAB PO SCH (09:00)
[2017-02-07] MEDS: CALCIUM CARBONATE 1.25 GM TAB PO SCH (09:00)
[2017-02-07] MEDS: HEPARIN 5,000 UNIT/0.5 ML VIAL SC SCH ×2 (09:00→22:44)
[2017-02-07 09:17] LABS: CALCIUM 9.8 mg/dl (8.4-10.2); CREATININE 9.38 mg/dl (0.61-1.24); MAGNESIUM 2.1 mg/dl (1.7-2.5); PHOSPHORUS 3.2 mg/dl (2.5-4.9); POTASSIUM 4.3 mmol/L (3.5-5.1)
--- NOTE | 2017-02-07 09:37 | PN ---
DATE: 02/07/2017 10/07/2016 SUBJECTIVE: The patient was seen yesterday by Dr. Vidal and is planning for surgical corre ction of his left hip fracture. No other events noted. OBJECTIVE: VITAL SIGNS: Blood pressure is 160/81, temperature 98.4, pulse 78, respirations 16. HEENT: Head is normocephalic. NECK: Supple. HEART: Regular rate. LUNGS: Show diminished breath sounds at the base. ABDOMEN: Soft, nontender to palpation. No rebound or guarding. EXTREMITIES: Negative for clubbing, cyanosis. Positive wound on the right lower extremity. DERMATOLOGIC: No rashes. MUSCULOSKELETAL: No joint effusions. NEUROLOGIC: No change in exam. MEDICATIONS: The patient's medications have been reviewed. LABORATORY DATA: Shows sodium 146, potassium 4.4, BUN 45, creatinine 7.0. BMP is pending. ASSESSMENT AND PLAN: 1. Left hip fracture. The patient is pending surgical correction by Dr. Vidal. We will continue antwan n control. 2. Right lower extremity wound. Continue local wound care. Follow up with infectious disease. Fo llow up with surgery. 3. End-stage renal disease. Plan for dialysis today. 4. Hypokalemia, improved. Continue dialysis on a low potassium bath. 5. Anemia. Monitor hemoglobin and hematocrit levels. Continue Epogen. 6. Mineral bone disorder. Monitor calcium and phosphorus levels. 7. Hypertension. Blood pressure remains elevated. Continue ultrafiltration with dialysis. Contin ue current blood pressure regimen. We will start the patient on MARY inhibitor, lisinopril 40 mg evelyn ly. 8. Chronic pain syndrome. Continue current pain regimen. 9. Status post open reduction internal fixation of the right ankle. 10. Coronary artery disease. Continue medical management. 11. Gastrointestinal and deep venous thrombosis prophylaxis. Continue proton pump inhibitor and he lizette. Dictated By: CHELSI AGGARWAL/ED Conf#: [id number] DID#: [id number]
[2017-02-07] MEDS ORDERED: VANCOMYCIN IV PER PHARMACY XX SCH ×2 (10:30→22:00)
[2017-02-07] MEDS: LISINOPRIL 20 MG TAB PO SCH (10:40)
[2017-02-07] MEDS ORDERED: VANCOMYCIN 1.5 GM in SOD CHLORIDE 0.9% 250 ML IVPB SCH (12:30)
[2017-02-07] MEDS ORDERED: HEPARIN 1000 UNITS/ML 10 ML INJ CATHETER ONE (12:30)
--- NOTE | 2017-02-07 15:12 | CONS ---
Date/Time of Note Date/Time of Note DATE: 02/07/17 TIME: 15:06 Assessment/Plan Assessment/Plan Chief Complaint/Hosp Course SUBJECTIVE: The patient is awake, looks comfortable, no fevers. Right ankle wound culture grew staph aureus INDWELLINGS: Right chest Perm-A-Cath. PHYSICAL EXAMINATION: GENERAL: This is a chronically ill-appearing, fragile well-developed elderly man who is awake, in no distress. HEENT: Head atraumatic, normocephalic. Sclerae anicteric. Buccal mucosa dry. NECK: Supple. CHEST: Rise symmetrical. Breath sounds clear, diminished to bases. HEART: S1, S2. ABDOMEN: Soft. Bowel tones present. EXTREMITIES: Left lower extremity dressing intact. ASSESSMENT: 1. Right lower extremity chronic wound culture growing staph aureus. 2. End-stage renal disease, hemodialysis dependent. 3. Hypertension. 4. History of schizoaffective disorder. 5. Left hip severely comminuted and unstable intertrochanteric fracture PLAN: Clinically stable. We are going to start IV vancomycin, patient will require hip surgery as per [facility] recommendations Discussed with staff Problems: Consultation Date/Type/Reason Admit Date/Time Feb 04, 2017 at 13:05 Initial Consult Date 02/05/17 Type of Consultation: ID Referring Provider: CHELSI ASIF DO Exam/Review of Systems Vital Signs Vitals Vital Signs Date Time Temp Pulse Resp B/P Pulse Ox O2 Delivery O2 Flow Rate FiO2 02/07/17 14:00 75 02/07/17 14:00 20 02/07/17 11:54 98.2 154/73 95 02/07/17 08:00 Intake and Output 02/06/17 02/06/17 02/07/17 15:00 23:00 07:00 Intake Total 950 ml 400 ml Balance 950 ml 400 ml Results Result Diagram: 02/07/17 0746 02/07/17 0746 Results 24 hrs Laboratory Tests Test 02/07/17 07:46 White Blood Count 9.9 Red Blood Count 3.77 L Hemoglobin 10.7 L Hematocrit 35.1 L Mean Corpuscular Volume 93.1 Mean Corpuscular Hemoglobin 28.4 L Mean Corpuscular Hemoglobin Concent 30.5 L Red Cell Distribution Width 16.0 H Platelet Count 174 Mean Platelet Volume 9.6 Neutrophils % 78.0 H Lymphocytes % 7.1 L Monocytes % 12.4 H Eosinophils % 1.9 Basophils % 0.3 Nucleated Red Blood Cells % 0.0 Neutrophils # 7.7 H Lymphocytes # 0.7 L Monocytes # 1.2 H Eosinophils # 0.2 Basophils # 0.0 Nucleated Red Blood Cells # 0.0 Sodium Level 144 Potassium Level 4.3 Chloride Level 102 Carbon Dioxide Level 29 Anion Gap 17 H Blood Urea Nitrogen 75 #H Creatinine 9.38 #H Glucose Level 101 Calcium Level 9.8 Phosphorus Level 3.2 Magnesium Level 2.1 Medications Medications Current Medications Morphine Sulfate (morphine) 2 mg Q4H PRN IV PAIN LEVEL 4-6 Last administered on 02/07/17 00:24; Admin Dose 2 MG; Start 02/04/17 at 15:30 Heparin Sodium (Porcine) (Heparin (5000 Units/0.5 ml)) 5,000 unit BID SC Last administered on 02/06/17 21:38; Admin Dose 5,000 UNIT; Start 02/05/17 at 09: 00 Lorazepam (Ativan) 1 mg Q8H PRN IV ANXIETY Last administered on 02/06/17 21: 30; Admin Dose 1 MG; Start 02/05/17 at 01:30 Acetaminophen (Tylenol Tab) 650 mg Q4 PRN PO PAIN AND OR ELEVATED TEMP; Start 02/05/17 at 09:30 Bisacodyl (Dulcolax Supp) 10 mg PRN PRN [place] CONSTIPATION; Start 02/05/17 at 09: 30 Calcium Carbonate (Oyster Shell Calcium) 0.5 gm DAILY PO Last administered on 02/06/17 08:49; Admin Dose 0.5 GM; Start 02/06/17 at 09:00 Clonidine (Catapres) 0.2 mg Q6 PRN PO ELEVATED BLOOD PRESSURE Last administered on 02/06/17 04:00; Admin Dose 0.2 MG; Start 02/05/17 at 09:30 Docusate Sodium (Colace) 200 mg QHS PRN PO CONSTIPATION; Start 02/05/17 at 09: 30 Acetaminophen/ Hydrocodone Bitart ([place] (5/325)) 1 tab DAILY PRN PO PAIN MANAGMENT; Start 02/05/17 at 09:30 Acetaminophen/ Hydrocodone Bitart ([place] (5/325)) 1 tab Q6 PRN PO PAIN LEVEL 4- 6; Start 02/05/17 at 09:30 Acetaminophen/ Hydrocodone Bitart ([place] (5/325)) 2 tab Q6 PRN PO PAIN LEVEL 7- 10; Start 02/05/17 at 09:30 Multivit/Ca Carb/ B Cmplx/FA/Prenat (Mel-Laura) 1 tab DAILY PO Last administered on 02/06/17 08:56; Admin Dose 1 TAB; Start 02/06/17 at 09:00 Pantoprazole (Protonix Tab) 40 mg DAILY PO Last administered on 02/06/17 08: 49; Admin Dose 40 MG; Start 02/06/17 at 09:00 Morphine Sulfate (morphine) 2 mg Q4H PRN PO PAIN Last administered on 17:47; Admin Dose 2 MG; Start 02/05/17 at 10:00 Clonidine (Catapres) 0.1 mg Q6H PRN PO sbp > 160 but less than 190 Last administered on 02/06/17 02:21; Admin Dose 0.1 MG; Start 02/05/17 at 17:30 Hydralazine HCl (Apresoline) 10 mg Q6H PRN IV ELEVATED BLOOD PRESSURE Last administered on 02/07/17 04:16; Admin Dose 10 MG; Start 02/06/17 at 04:30 Carvedilol (Coreg) 6.25 mg BID PO Last administered on 02/07/17 10:41; Admin Dose 6.25 MG; Start 02/07/17 at 09:00 Lisinopril 20 mg 20 mg DAILY PO Last administered on 02/07/17 10:40; Admin Dose 20 MG; Start 02/07/17 at 09:00 Vancomycin HCl/ Sodium Chloride (Vancocin/NS) 250 ml @ 83.333 mls/ hr ONCE IVPB ; Start 02/07/17 at 12:30; Stop 02/07/17 at 22:22 ERIC GARCIA NP Feb 07, 2017 15:12
[2017-02-07] MEDS ORDERED: MIDAZOLAM 1 MG/ML 2 ML INJ ONE (18:31)
[2017-02-07] MEDS ORDERED: FENTAnyl 50 MCG/ML VIAL ONE (18:31)
[2017-02-07] MEDS ORDERED: METOCLOPRAMIDE 10 MG INJ ONE (18:31)
[2017-02-07] MEDS ORDERED: morphine SULFATE/PF (10 MG/10 ML) INJ ONE (18:31)
[2017-02-07] MEDS ORDERED: ROPIVACAINE 0.5 % 30 ML VIAL ONE (19:14)
[2017-02-07] MEDS ORDERED: PHENYLephrine (100 MCG/ML) 5ML SYG ONE (19:19)
[2017-02-07] MEDS ORDERED: EPHEDrine SULFATE 50 MG/5 ML SYG ONE ×2 (19:29→19:37)
[2017-02-07] MEDS ORDERED: PROPOFOL 20 ML ONE (19:29)
[2017-02-07] MEDS ORDERED: EPHEDrine SULFATE 50 MG/5 ML SYG IV PRN (20:00)
[2017-02-07] MEDS ORDERED: MEPERIDINE 25 MG INJ IV PRN (20:00)
[2017-02-07] MEDS ORDERED: morphine (1 MG/ML) 10ML SYRINGE IV PRN ×3 (20:00)
[2017-02-07] MEDS ORDERED: DIPHENHYDRAMINE 50 MG INJ IV PRN (20:00)
[2017-02-07] MEDS ORDERED: ONDANSETRON 4 MG INJ IV PRN (20:00)
[2017-02-07] MEDS ORDERED: LABETALOL HCL 20MG INJ IV PRN (20:00)
[2017-02-07] MEDS ORDERED: hydrALAzine 20 MG INJ IV PRN (20:00)
[2017-02-07] MEDS ORDERED: ONDANSETRON 4 MG INJ ONE (20:47)
[2017-02-07] MEDS ORDERED: SOD CHLORIDE 0.9% 1,000 ML IV SCH (20:55)
[2017-02-07] MEDS ORDERED: CEFAZOLIN 1 GM/50 ML (PMX) 50 ML IVPB SCH (21:00)
[2017-02-07] MEDS ORDERED: NALOXONE (0.4 MG/ML) INJ IV PRN (21:00)
[2017-02-07] MEDS ORDERED: NACL 0.9% 3 ML SYG IV SCH (21:00)
--- NOTE | 2017-02-07 21:28 | SIPON ---
Date/Time of Note Date/Time of Note DATE: 02/07/17 TIME: 21:22 Operative Report Preoperative Diagnosis intertrchantericfractureof Lt. hip Postoperative Diagnosis same Operation/Procedure Performed O.R.I.F. of intertrochanteric fracture of L. hip Surgeon see signature line psychiatric assistant none Anesthesia: general Estimated blood loss: 10 - 50 ml's Transfusion Required none Specimen none Grafts/Implants short gamma nail Complications none JOHNSON RICHTER MD Feb 07, 2017 21:28
[2017-02-07] MEDS ORDERED: morphine 4 MG/ML VIAL IV PRN (21:30)
--- NOTE | 2017-02-07 22:22 | RADRPT ---
PROCEDURE: XR hip and pelvis. CLINICAL INDICATION: pain TECHNIQUE: AP and frog lateral views of the left hip were performed. Single frontal view of the pe lvis was obtained. COMPARISON: 02/04/2017 FINDINGS: There has been interval placement of an intramedullary trini and intertrochanteric screw for fixation of an intertrochanteric fracture. Fragments are in the anatomic alignment. Overlying skin reji an d some subcutaneous emphysema present. IMPRESSION: Interval reduction and internal fixation of a left femoral intertrochanteric fracture. RPTAT: HIKT .Cheko Edgar MD, MD Date Time Electronically viewed and signed by .Cheko Edgar MD, on 02/07/2017 22:21 .T/
[2017-02-08] VITALS (9 sets, daily range): BP systolic 118–197; BP diastolic 62–93; PULSE 95–98; RESP 17–20
--- NOTE | 2017-02-08 04:23 | RADRPT ---
PROCEDURE: Open reduction internal fixation left hip. CLINICAL INDICATION: Left intertrochanteric fracture. TECHNIQUE: Fluoroscopy time: 1.7 minutes. Radiation dose: 10.9 mGy, 0.648uBmd6 Images: 53 One or more of the following dose reduction techniques were used: - Automated exposure control. - Adjustment of the mA and/or kV according to patient size. - Use of iterative reconstruction technique. COMPARISON: 02/04/2017. FINDINGS: Left femoral intramedullary trini and interlocking intertrochanteric screw for internal fixa tion of an intertrochanteric fracture. There is anatomic alignment. IMPRESSION: Intraoperative fluoroscopic services provided for open reduction internal fixation of a left intertr ochanteric fracture with resultant anatomic alignment. RPTAT: HRSR Physician Aicha Date Time Electronically viewed and signed by Physician Aicha on 02/08/2017 04:22 RR/
[2017-02-08] MEDS: SEVELAMER 800 MG TAB PO SCH ×3 (07:55→18:47)
[2017-02-08] MEDS: CALCIUM ACETATE 667 MG CAP PO SCH ×3 (07:55→18:01)
[2017-02-08] MEDS: LISINOPRIL 20 MG TAB PO SCH (09:00)
[2017-02-08] MEDS ORDERED: ENOXAPARIN 30 MG/0.3 ML SYG SC SCH (09:00)
[2017-02-08] MEDS: PANTOPRAZOLE (EC) 40 MG TAB PO SCH (09:00)
[2017-02-08] MEDS: MULTIVIT/CA CARB/B CMPLX/FA TAB PO SCH (09:00)
[2017-02-08] MEDS: CALCIUM CARBONATE 1.25 GM TAB PO SCH (09:00)
[2017-02-08] MEDS: HEPARIN 5,000 UNIT/0.5 ML VIAL SC SCH ×2 (09:00→21:39)
--- NOTE | 2017-02-08 12:32 | CONS ---
Date/Time of Note Date/Time of Note DATE: 02/08/17 TIME: 12:31 Assessment/Plan Assessment/Plan Chief Complaint/Hosp Course SUBJECTIVE: The patient is awake, confused, looks comfortable, no fevers. Right ankle wound culture grew SEJAL INDWELLINGS: Right chest Perm-A-Cath. PHYSICAL EXAMINATION: GENERAL: This is a chronically ill-appearing, fragile well-developed elderly man who is awake, in no distress. HEENT: Head atraumatic, normocephalic. Sclerae anicteric. Buccal mucosa dry. NECK: Supple. CHEST: Rise symmetrical. Breath sounds clear, diminished to bases. HEART: S1, S2. ABDOMEN: Soft. Bowel tones present. EXTREMITIES: Left lower extremity dressing intact. ASSESSMENT: 1. Right lower extremity chronic wound culture growing staph aureus. 2. End-stage renal disease, hemodialysis dependent. 3. Hypertension. 4. History of schizoaffective disorder. 5. Left hip severely comminuted and unstable intertrochanteric fracture, s/p ORIF PLAN: Clinically stable. Continue IV Vancomycin, f/o ortho rec-s Discussed with staff Problems: Consultation Date/Type/Reason Admit Date/Time Feb 04, 2017 at 13:05 Initial Consult Date 02/05/17 Type of Consultation: ID Referring Provider: CHELSI ASIF DO Exam/Review of Systems Vital Signs Vitals Vital Signs Date Time Temp Pulse Resp B/P Pulse Ox O2 Delivery O2 Flow Rate FiO2 02/08/17 11:19 98.0 113 18 197/93 97 02/07/17 22:35 2.0 02/07/17 22:00 Nasal Cannula Intake and Output 02/07/17 02/07/17 02/08/17 15:00 23:00 07:00 Intake Total 1000 ml 650 ml 120 ml Output Total 3000 ml 30 ml Balance -2000 ml 620 ml 120 ml Results Result Diagram: 02/07/17 0746 02/07/17 1832 Results 24 hrs Laboratory Tests Test 02/07/17 18:32 Potassium Level 3.8 Medications Medications Current Medications Morphine Sulfate (morphine) 2 mg Q4H PRN IV PAIN LEVEL 4-6 Last administered on 02/07/17t 22:30; Admin Dose 2 MG; Start 02/04/17 at 15:30 Heparin Sodium (Porcine) (Heparin (5000 Units/0.5 ml)) 5,000 unit BID SC Last administered on 02/06/17 21:38; Admin Dose 5,000 UNIT; Start 02/05/17 at 09: 00 Lorazepam (Ativan) 1 mg Q8H PRN IV ANXIETY Last administered on 02/06/17 21: 30; Admin Dose 1 MG; Start 02/05/17 at 01:30 Acetaminophen (Tylenol Tab) 650 mg Q4 PRN PO PAIN AND OR ELEVATED TEMP; Start 02/05/17 at 09:30 Bisacodyl (Dulcolax Supp) 10 mg PRN PRN [place] CONSTIPATION; Start 02/05/17 at 09: 30 Calcium Carbonate (Oyster Shell Calcium) 0.5 gm DAILY PO Last administered on 02/06/17 08:49; Admin Dose 0.5 GM; Start 02/06/17 at 09:00 Clonidine (Catapres) 0.2 mg Q6 PRN PO ELEVATED BLOOD PRESSURE Last administered on 02/06/17 04:00; Admin Dose 0.2 MG; Start 02/05/17 at 09:30 Docusate Sodium (Colace) 200 mg QHS PRN PO CONSTIPATION; Start 02/05/17 at 09: 30 Acetaminophen/ Hydrocodone Bitart ([place] (5/325)) 1 tab DAILY PRN PO PAIN MANAGMENT Last administered on 02/08/17 09:22; Admin Dose 1 TAB; Start at 09:30 Acetaminophen/ Hydrocodone Bitart ([place] (5/325)) 1 tab Q6 PRN PO PAIN LEVEL 4- 6; Start 02/05/17 at 09:30 Acetaminophen/ Hydrocodone Bitart ([place] (5/325)) 2 tab Q6 PRN PO PAIN LEVEL 7- 10; Start 02/05/17 at 09:30 Multivit/Ca Carb/ B Cmplx/FA/Prenat (Mel-Laura) 1 tab DAILY PO Last administered on 02/06/17 08:56; Admin Dose 1 TAB; Start 02/06/17 at 09:00 Pantoprazole (Protonix Tab) 40 mg DAILY PO Last administered on 02/06/17 08: 49; Admin Dose 40 MG; Start 02/06/17 at 09:00 Morphine Sulfate (morphine) 2 mg Q4H PRN PO PAIN Last administered on 17:47; Admin Dose 2 MG; Start 02/05/17 at 10:00 Clonidine (Catapres) 0.1 mg Q6H PRN PO sbp > 160 but less than 190 Last administered on 02/06/17 02:21; Admin Dose 0.1 MG; Start 02/05/17 at 17:30 Hydralazine HCl (Apresoline) 10 mg Q6H PRN IV ELEVATED BLOOD PRESSURE Last administered on 02/07/17 22:32; Admin Dose 10 MG; Start 02/06/17 at 04:30 Carvedilol (Coreg) 6.25 mg BID PO Last administered on 02/07/17 22:46; Admin Dose 6.25 MG; Start 02/07/17 at 09:00 Lisinopril (Zestril) 20 mg DAILY PO Last administered on 02/07/17 10:40; Admin Dose 20 MG; Start 02/07/17 at 09:00 Naloxone HCl (Narcan) 0.2 mg Q2M PRN IV DECREASED REPIRATORY RATE; Start at 21:00 Morphine Sulfate (morphine) 3 mg Q3H PRN IV PAIN; Start 02/07/17 at 21:30 Acetaminophen/ Hydrocodone Bitart ([place] (5/325)) 1 tab Q3H PRN PO PAIN; Start 02/07/17 at 21:30 Miscellaneous Information (*Rx Drug Level Order Reminder*) RANDOM VANCOMYCIN LEVEL ... ONCE ONCE XX ; Start 02/09/17 at 05:00; Stop 02/09/17 at 05:01 ERIC GARCIA NP Feb 08, 2017 12:32
--- NOTE | 2017-02-08 13:20 | PN ---
DATE: 02/08/2017 SUBJECTIVE: The patient is status post left hip surgical correction. No other events noted. No he moptysis, hematemesis or hematochezia. OBJECTIVE: VITAL SIGNS: Blood pressure 139/71, respirations 19, pulse 99, temperature 98.3. HEENT: Head is normocephalic. NECK: Supple. HEART: Regular rate. LUNGS: Show diminished breath sounds at base. ABDOMEN: Soft, nontender to palpation without rebound or guarding. EXTREMITIES: Positive for clubbing, cyanosis. No edema. DERMATOLOGIC: No rashes. MUSCULOSKELETAL: No joint effusions. The patient has dressing over his hip, clean, dry and intact. LABORATORY DATA: Has been reviewed. No new labs. ASSESSMENT AND PLAN: 1. Left hip fracture status post open reduction internal fixation. The patient is postop day #1. Continue to monitor, continue pain control. 2. Lower extremity wounds. Continue wound care. 3. End-stage renal disease. Planned for hemodialysis tomorrow. 4. Hyperkalemia, resolved. 5. Anemia. Monitor hemoglobin and hematocrit levels. Continue Epogen. 6. Mineral bone disorder. Continue to monitor calcium and phosphorus levels. 7. Hypertension. Blood pressure remains elevated, slowly improving. Continue current blood pressu re regimen. Continue ultrafiltration with dialysis. 8. Chronic pain syndrome. Continue current pain regimen. 9. Status post open reduction internal fixation of the right ankle. 10. Coronary artery disease. Continue medical management. 11. Gastrointestinal and deep vein thrombosis prophylaxis. Dictated By: CHELSI AGGARWAL/ED Conf#: [id number] DID#: [id number]
[2017-02-09] VITALS (9 sets, daily range): BP systolic 104–145; BP diastolic 55–74; PULSE 65–94; RESP 18
[2017-02-09] MEDS ORDERED: PENDING SANTYL ORDER FOR WOUND CARE XX PRN (04:00)
[2017-02-09] MEDS: HYDROCODONE/APAP (5/325) TAB PO PRN ×2 (05:04→08:17)
[2017-02-09] MEDS: LISINOPRIL 20 MG TAB PO SCH (08:14)
[2017-02-09] MEDS: PANTOPRAZOLE (EC) 40 MG TAB PO SCH (08:14)
[2017-02-09] MEDS: CALCIUM ACETATE 667 MG CAP PO SCH ×3 (08:15→17:59)
[2017-02-09] MEDS: SEVELAMER 800 MG TAB PO SCH ×3 (08:16→17:59)
[2017-02-09] MEDS: CALCIUM CARBONATE 1.25 GM TAB PO SCH (08:16)
[2017-02-09] MEDS: MULTIVIT/CA CARB/B CMPLX/FA TAB PO SCH (08:16)
[2017-02-09] MEDS: HEPARIN 5,000 UNIT/0.5 ML VIAL SC SCH ×2 (09:00→20:45)
--- NOTE | 2017-02-09 09:20 | OPR ---
DATE OF OPERATION: PREOPERATIVE DIAGNOSIS: Intertrochanteric fracture of the left hip. POSTOPERATIVE DIAGNOSIS: Intertrochanteric fracture of the left hip. OPERATION PERFORMED: Open reduction and internal fixation of the intertrochanteric fracture of the left hip. ANESTHESIA: General anesthesia. SURGEON: Fidel Vidla MD OPERATIVE FINDINGS AT SURGERY: Under anesthesia, the patient was placed in supine position upon the fracture table. Utilizing fracture table and under fluoroscopic monitoring, preliminary manipulator reduction of the intertrochanteric fracture of the left hip was carried out until an acceptable alignment could be achieved. The left hip and left thigh was prepped and draped in the usual fashion. The tip of the greater trochanter was approached through the lateral longitudinal incision over the trochanteric area and greater trochanter was identified. The catheter tip was at the greater trochanter. Intramedullary canal was entered with the guide pin and then opening was enlarged with the cannulated drill. After creating the opening into the intramedullary canal, the short gamma nail, which is 180 mm long and 11.5 and 10 mm wide intramedullary device with the 125 angle opening for the lag screw was pounded in. After proper adjustment lag screw was properly . The guide pins for the lag screw was properly positioned, and after reaming, the lag screw in the size of 100 mm was inserted. After proper assessment lag screw was properly locked. Finally additional transfixation screws inserted to the distal stabilized static hole for further stability. After confirming satisfactory alignment of the fracture and proper position of the fixation device, the new wound surgeon guides were all removed and, after irrigation and hemostasis, closure of the incision was carried out using 0 Vicryl for muscle and fascia and 2-0 Vicryl for subcutaneous tissues. Final skin closure was carried out with skin reji. Proper sterile dressings were applied. The patient tolerated the entire procedure very well and was sent to the recovery room in good condition. Dictated By: Fidel Vidal MD /ramiro/dominic /Document#: [id number]
--- NOTE | 2017-02-09 09:48 | CONS ---
Date/Time of Note Date/Time of Note DATE: 02/09/17 TIME: 09:47 Assessment/Plan Assessment/Plan Chief Complaint/Hosp Course ID PROGRESS NOTE CURRENT ABX: DAY # => Vanco IV #3 24H INTERVAL SUMMARY * Awake. alert, non-verbal = no response to inquiry, Afebrile, VSS, NAD -- currently in HD session via [facility] * POD #2-> s/p 02/07/17 ORIF Left HIP * MICRO: 02/05/17 R-Ankle (+)SEJAL PHYSICAL EXAMINATION: GENERAL: VSS, NAD HEENT: AT, NC, anicteric, moist oral membranes NECK: Trach midline, supple CHEST: Equal chest rise bilaterally, without dyspnea on observation HEART: RRR EXT: Warm, moves all ext, RLEXT DSG c/d/I SKIN: No rash, no diaphoresis ID ASSESSMENT: 71 yo M PMHx schizoaffective disorder admit with: 1. SIRS w/low grade Tmax 99.0+, HR 100 => reactive +chronic wound 2. Right lower extremity chronic wound culture growing staph aureus. 3. Left hip severely comminuted and unstable intertrochanteric fracture, s/p ORIF 02/07/17 4. End-stage renal disease, hemodialysis dependent. 5. Hypertension. (-)MRSA ABX ALLERGY: NKDA INVASIVES: PIV CURRENT ABX:DAY #3 =>Vanco IV ID RECOMMENDATIONS/PLAN: 1. Continue current ABX over the weekend 2. Anticipate DC back to SNF w/Vanco IV 1GM Q96H to be gven by HD RN post HD until last day 02/21/17 to complete 14 days for RLEXT wound. . Problems: Consultation Date/Type/Reason Admit Date/Time Feb 04, 2017 at 13:05 Initial Consult Date 02/05/17 Type of Consultation: ID Referring Provider: CHELSI ASIF DO Exam/Review of Systems Vital Signs Vitals Vital Signs Date Time Temp Pulse Resp B/P Pulse Ox O2 Delivery O2 Flow Rate FiO2 02/08/17 19:21 98.6 96 20 129/64 95 02/07/17 22:35 2.0 02/07/17 22:00 Nasal Cannula Intake and Output 02/08/17 02/08/17 02/09/17 15:00 23:00 07:00 Intake Total 100 ml Balance 100 ml Results Result Diagram: 02/07/17 0746 02/07/17 1832 Results 24 hrs Laboratory Tests Test 02/09/17 05:07 Random Vancomycin Level 16.6 Medications Medications Current Medications Morphine Sulfate (morphine) 2 mg Q4H PRN IV PAIN LEVEL 4-6 Last administered on 02/07/17 22:30; Admin Dose 2 MG; Start 02/04/17 at 15:30 Heparin Sodium (Porcine) (Heparin (5000 Units/0.5 ml)) 5,000 unit BID SC Last administered on 02/08/17 21:39; Admin Dose 5,000 UNIT; Start 02/05/17 at 09: 00 Lorazepam (Ativan) 1 mg Q8H PRN IV ANXIETY Last administered on 02/06/17 21: 30; Admin Dose 1 MG; Start 02/05/17 at 01:30 Acetaminophen (Tylenol Tab) 650 mg Q4 PRN PO PAIN AND OR ELEVATED TEMP; Start 02/05/17 at 09:30 Bisacodyl (Dulcolax Supp) 10 mg PRN PRN [place] CONSTIPATION; Start 02/05/17 at 09: 30 Calcium Carbonate (Oyster Shell Calcium) 0.5 gm DAILY PO Last administered on 02/09/17 08:16; Admin Dose 0.5 GM; Start 02/06/17 at 09:00 Clonidine (Catapres) 0.2 mg Q6 PRN PO ELEVATED BLOOD PRESSURE Last administered on 02/06/17 04:00; Admin Dose 0.2 MG; Start 02/05/17 at 09:30 Docusate Sodium (Colace) 200 mg QHS PRN PO CONSTIPATION; Start 02/05/17 at 09: 30 Acetaminophen/ Hydrocodone Bitart ([place] (5/325)) 2 tab Q6 PRN PO PAIN LEVEL 7- 10; Start 02/05/17 at 09:30 Multivit/Ca Carb/ B Cmplx/FA/Prenat (Mel-Laura) 1 tab DAILY PO Last administered on 02/09/17 08:16; Admin Dose 1 TAB; Start 02/06/17 at 09:00 Pantoprazole (Protonix Tab) 40 mg DAILY PO Last administered on 02/09/17 08: 14; Admin Dose 40 MG; Start 02/06/17 at 09:00 Morphine Sulfate (morphine) 2 mg Q4H PRN PO PAIN Last administered on 17:47; Admin Dose 2 MG; Start 02/05/17 at 10:00 Clonidine (Catapres) 0.1 mg Q6H PRN PO sbp > 160 but less than 190 Last administered on 02/06/17 02:21; Admin Dose 0.1 MG; Start 02/05/17 at 17:30 Hydralazine HCl (Apresoline) 10 mg Q6H PRN IV ELEVATED BLOOD PRESSURE Last administered on 02/07/17 22:32; Admin Dose 10 MG; Start 02/06/17 at 04:30 Carvedilol (Coreg) 6.25 mg BID PO Last administered on 02/09/17 08:16; Admin Dose 6.25 MG; Start 02/07/17 at 09:00 Lisinopril (Zestril) 20 mg DAILY PO Last administered on 02/09/17 08:14; Admin Dose 20 MG; Start 02/07/17 at 09:00 Naloxone HCl (Narcan) 0.2 mg Q2M PRN IV DECREASED REPIRATORY RATE; Start at 21:00 Morphine Sulfate (morphine) 3 mg Q3H PRN IV PAIN; Start 02/07/17 at 21:30 Acetaminophen/ Hydrocodone Bitart ([place] (5/325)) 1 tab Q3H PRN PO PAIN Last administered on 02/09/17 08:17; Admin Dose 1 TAB; Start 02/07/17 at 21:30 Miscellaneous Information (Pending Santyl Order For Wound Care) This patient le... PRN PRN XX WOUND CARE; Start 02/09/17 at 04:00 ROGERIO ELIZABETH NP Feb 09, 2017 09:48 ROGERIO ELIZABETH NP Feb 09, 2017 09:48
--- NOTE | 2017-02-09 12:53 | PN ---
DATE: 02/09/2017 SUBJECTIVE: The patient is pending hemodialysis. No other events noted. OBJECTIVE: VITAL SIGNS: Blood pressure is 129/64, respirations 20, pulse 96, temperature 98.6. HEENT: Head is normocephalic. NECK: Supple. HEART: Regular rate. LUNGS: Show diminished breath sounds at base. ABDOMEN: Soft, nontender to palpation. No rebound, guarding. EXTREMITIES: Negative for clubbing, cyanosis; no edema. DERMATOLOGIC: No rashes. MUSCULOSKELETAL: No joint effusions. NEUROLOGIC: No change in exam. MEDICATIONS: The patient's medications have been reviewed. LABORATORY DATA: Pending. ASSESSMENT AND PLAN: 1. Left hip fracture status post open reduction internal fixation. The patient is postop day #2. Continue pain control and physical therapy. 2. Lower extremity wounds. Continue wound care. 3. End-stage renal disease. Plan for hemodialysis today. 4. Hyperkalemia, resolved. 5. Anemia. Monitor hemoglobin and hematocrit levels. Continue Epogen. 6. Mineral bone disorder. Monitor calcium and phosphorus levels. 7. Hypertension. Continue current blood pressure regimen. 8. Chronic pain syndrome. Continue current pain regimen. 9. Coronary artery disease. Continue medical management. 10. Status post open reduction internal fixation of the right ankle. 11. Gastrointestinal and deep vein thrombosis prophylaxis. Dictated By: CHELSI AGGARWAL/ED Conf#: [id number] DID#: [id number] CC: JORDAN ESPINOZA MD;*EndCC*
--- NOTE | 2017-02-09 15:59 | CONS ---
Date/Time of Note Date/Time of Note DATE: 02/09/17 TIME: 15:57 Consult Date/Type/Reason Admit Date/Time Feb 04, 2017 at 13:05 Initial Consult Date 02/05/17 Type of Consultation: card Ordering Provider: CHELSI ASIF DO Subjective cardiology follow up note: S: DW/ staff. pt has been intermittently confused and refused PT. pt is off tele now. NO CHEST PAIN OR pressure. no PND orthopnea S/P ORIF 02/07/17 O: General: thin man,. no acute distress HEENT: NC/AT. pupils are equal. round. NECK: NO JVD. no stridor. CV: RRR. systolic ejection murmur; no gallop or rubs. PULM: no wheezing or rhonchi. GI: SOFT, NT, ND, no rebound or guarding Extremity: no significant LE edema. no clubbing. neuro: awake and alert, OX2. Psych: calm now rectal: deferred : deferred ECG reviewed: NSR nonspecific ST abn ECHO October 2016: 1. Normal left ventricular systolic function. Normal left ventricular cavity size. Moderate concentric left ventricular hypertrophy. Ejection fraction is visually estimated at 60 %. Tissue Doppler/Mitral Doppler indices are consistent with impaired relaxation (Stage I diastolic dysfunction). 2. There is mild enlargement of left atrium. 3. Mild mitral leaflet calcification. Mild mitral annular calcification. Trace mitral regurgitation. 4. Moderate aortic stenosis. Aortic valve Max velocity 3.30 m/sec. Max PG 44.00 mmHg. Mean PG 19.00 mmHg. Aortic valve area 1.12 cm2. Aortic cusps appear moderately calcified. Trace to mild aortic valve regurgitation. 5. Normal appearance of the tricuspid valve. Estimated peak PA systolic pressure 40 mmHg. There is mild tricuspid regurgitation. Objective Vital Signs Date Time Temp Pulse Resp B/P Pulse Ox O2 Delivery O2 Flow Rate FiO2 02/09/17 12:40 92 18 02/08/17 19:21 98.6 129/64 95 02/07/17 22:35 2.0 02/07/17 22:00 Nasal Cannula Intake and Output 02/08/17 02/08/17 02/09/17 14:59 22:59 06:59 Intake Total 100 ml Balance 100 ml Results/Medications Result Diagram: 02/07/17 0746 02/07/17 1832 Results 24 hrs Laboratory Tests Test 02/09/17 05:07 Random Vancomycin Level 16.6 Medications Current Medications Morphine Sulfate (morphine) 2 mg Q4H PRN IV PAIN LEVEL 4-6 Last administered on 02/07/17 22:30; Admin Dose 2 MG; Start 02/04/17 at 15:30 Heparin Sodium (Porcine) (Heparin (5000 Units/0.5 ml)) 5,000 unit BID SC Last administered on 02/08/17 21:39; Admin Dose 5,000 UNIT; Start 02/05/17 at 09: 00 Lorazepam (Ativan) 1 mg Q8H PRN IV ANXIETY Last administered on 02/06/17 21: 30; Admin Dose 1 MG; Start 02/05/17 at 01:30 Acetaminophen (Tylenol Tab) 650 mg Q4 PRN PO PAIN AND OR ELEVATED TEMP; Start 02/05/17 at 09:30 Bisacodyl (Dulcolax Supp) 10 mg PRN PRN AL CONSTIPATION; Start 02/05/17 at 09: 30 Calcium Carbonate (Oyster Shell Calcium) 0.5 gm DAILY PO Last administered on 02/09/17 08:16; Admin Dose 0.5 GM; Start 02/06/17 at 09:00 Clonidine (Catapres) 0.2 mg Q6 PRN PO ELEVATED BLOOD PRESSURE Last administered on 02/06/17 04:00; Admin Dose 0.2 MG; Start 02/05/17 at 09:30 Docusate Sodium (Colace) 200 mg QHS PRN PO CONSTIPATION; Start 02/05/17 at 09: 30 Acetaminophen/ Hydrocodone Bitart ([place] (5/325)) 2 tab Q6 PRN PO PAIN LEVEL 7- 10; Start 02/05/17 at 09:30 Multivit/Ca Carb/ B Cmplx/FA/Prenat (Mel-Laura) 1 tab DAILY PO Last administered on 02/09/17 08:16; Admin Dose 1 TAB; Start 02/06/17 at 09:00 Pantoprazole (Protonix Tab) 40 mg DAILY PO Last administered on 02/09/17 08: 14; Admin Dose 40 MG; Start 02/06/17 at 09:00 Morphine Sulfate (morphine) 2 mg Q4H PRN PO PAIN Last administered on 17:47; Admin Dose 2 MG; Start 02/05/17 at 10:00 Clonidine (Catapres) 0.1 mg Q6H PRN PO sbp > 160 but less than 190 Last administered on 02/06/17 02:21; Admin Dose 0.1 MG; Start 02/05/17 at 17:30 Hydralazine HCl (Apresoline) 10 mg Q6H PRN IV ELEVATED BLOOD PRESSURE Last administered on 02/07/17 22:32; Admin Dose 10 MG; Start 02/06/17 at 04:30 Carvedilol (Coreg) 6.25 mg BID PO Last administered on 02/09/17 08:16; Admin Dose 6.25 MG; Start 02/07/17 at 09:00 Lisinopril (Zestril) 20 mg DAILY PO Last administered on 02/09/17 08:14; Admin Dose 20 MG; Start 02/07/17 at 09:00 Naloxone HCl (Narcan) 0.2 mg Q2M PRN IV DECREASED REPIRATORY RATE; Start at 21:00 Morphine Sulfate (morphine) 3 mg Q3H PRN IV PAIN; Start 02/07/17 at 21:30 Acetaminophen/ Hydrocodone Bitart ([place] (5/325)) 1 tab Q3H PRN PO PAIN Last administered on 02/09/17 08:17; Admin Dose 1 TAB; Start 02/07/17 at 21:30 Miscellaneous Information This patient le... PRN PRN XX WOUND CARE; Start at 04:00 Vancomycin HCl (Vancocin) 250 ml @ 125 mls/hr ONCE IVPB ; Start 02/09/17 at 22 :00; Stop 02/09/17 at 23:59 Assessment/Plan Chief Complaint/Hosp Course 1. s/p ORIF hip 2. hip fracture 3. HTN: better controlled now on coreg 4. ESRD on HD 5. hyper K: corrected with HD 6/ hx multiple falls and injuries. 7 psych d/o. Probably schizoaffective disorder and intermittent agitation and mental status changes 8. hx loop recorder placement 9. Anemia probably related to chronic kidney disease/anemia of chronic disease. Follow and management as per internal medicine Recommendations: CONT carvedilol and inc as needed/ tolerated. Clonidine as needed dose only for now. Hemodialysis has been addressed by renal team and patient has already been dialyzed. Correction of electrolyte including potassium has been done by renal through the dialysis. post op care and DVT prophylaxis as per IM/ ortho Thank you for his referral. I will continue to follow along with you. SHABNAM WILSON MD [facility] Problems: SHABNAM WILSON MD Feb 09, 2017 15:59
[2017-02-09] MEDS ORDERED: VANCOMYCIN 1 GM in NS 250 ML IVPB SCH (22:00)
[2017-02-10] MEDS: HYDROCODONE/APAP (5/325) TAB PO PRN (02:55)
[2017-02-10 05:12] LABS: BASOPHIL # 0.1 10^3/ul (0.0-0.1); BASOPHILS % 0.4 % (0.0-2.0); EOSINOPHILS # 0.1 10^3/ul (0.0-0.5); EOSINOPHILS % 1.2 % (0.0-7.0); HEMATOCRIT 36.7 % (42.0-52.0); HEMOGLOBIN 11.5 g/dl (14.0-18.0); LYMPHOCYTES # 0.7 10^3/ul (0.8-2.9); LYMPHOCYTES % 5.8 % (15.0-51.0); MEAN CORPUSCULAR HEMOGLOBIN 28.9 pg (29.0-33.0); MEAN CORPUSCULAR HGB CONC 31.3 g/dl (32.0-37.0); MEAN CORPUSCULAR VOLUME 92.2 fl (82.0-101.0); MEAN PLATELET VOLUME 9.5 fl (7.4-10.4); MONOCYTE # 1.3 10^3/ul (0.3-0.9); MONOCYTES % 11.7 % (0.0-11.0); NEUTROPHIL # 9.1 10^3/ul (1.6-7.5); NEUTROPHILS % 80.3 % (39.0-77.0); PLATELET COUNT 253 10^3/UL (140-415); RED BLOOD COUNT 3.98 10^6/ul (4.70-6.10); RED CELL DISTRIBUTION WIDTH 15.6 % (11.5-14.5); WHITE BLOOD COUNT 11.3 10^3/ul (4.8-10.8)
[2017-02-10 06:09] LABS: CALCIUM 9.3 mg/dl (8.4-10.2); CREATININE 7.15 mg/dl (0.61-1.24); MAGNESIUM 2.1 mg/dl (1.7-2.5); PHOSPHORUS 4.3 mg/dl (2.5-4.9); POTASSIUM 4.4 mmol/L (3.5-5.1)
[2017-02-10 07:43] VITALS: BP 165/78; RESP 16
[2017-02-10] MEDS: CALCIUM ACETATE 667 MG CAP PO SCH ×2 (07:50→11:40)
[2017-02-10] MEDS: SEVELAMER 800 MG TAB PO SCH ×2 (07:50→11:40)
--- NOTE | 2017-02-10 08:12 | PN ---
DATE: 02/10/2017 SUBJECTIVE: The patient is stable. No events overnight. No fevers, chills, nausea, vomiting. OBJECTIVE: VITAL SIGNS: Blood pressure 137/65, respirations 18, pulse 92, temperature 97.6. HEENT: Head is normocephalic. NECK: Supple. HEART: Regular rate. LUNGS: Show diminished breath sounds at the base. ABDOMEN: Soft, nontender to palpation. No rebound or guarding. EXTREMITIES: Negative for clubbing, cyanosis. Positive wound in the right lower extremity. DERMATOLOGIC: No rashes. MUSCULOSKELETAL: No joint effusions. NEUROLOGIC: No change in exam. MEDICATIONS: The patient's medications have been reviewed. LABORATORY DATA: Shows white count 11.3, hemoglobin 11.5, hematocrit 36.7, platelet count 253. Sod ium 140, potassium 4.4, BUN 63, creatinine 7.15. ASSESSMENT AND PLAN: 1. Left hip fracture status post open reduction internal fixation. The patient is postop day #3. Continue physical therapy. 2. Lower extremity wounds. Continue antibiotic therapy for a 14-day course. 3. End-stage renal disease. Plan for hemodialysis tomorrow. 4. Anemia. Monitor hemoglobin and hematocrit levels. Continue Epogen. 5. Mineral bone disorder. Continue to monitor calcium and phosphorus levels. Continue phosphate b inders. 6. Hypertension. Blood pressure controlled. 7. Chronic pain syndrome. Continue current pain regimen. 8. Coronary artery disease. Continue medical management. 9. Status post open reduction internal fixation of the right ankle. 10. Gastrointestinal and deep vein thrombosis prophylaxis. DISPOSITION: Anticipate discharge planning back patient's SNF. Dictated By: CHELSI AGGARWAL/ED Conf#: [id number] DID#: [id number]
[2017-02-10] MEDS: LISINOPRIL 20 MG TAB PO SCH (08:37)
[2017-02-10] MEDS: HEPARIN 5,000 UNIT/0.5 ML VIAL SC SCH (08:43)
[2017-02-10] MEDS: MULTIVIT/CA CARB/B CMPLX/FA TAB PO SCH (08:44)
[2017-02-10] MEDS: PANTOPRAZOLE (EC) 40 MG TAB PO SCH (08:44)
[2017-02-10] MEDS: CALCIUM CARBONATE 1.25 GM TAB PO SCH (08:44)
[2017-02-10 13:53] VITALS: BP 147/70; RESP 17
--- NOTE | 2017-02-11 14:12 | DS ---
DATE OF ADMISSION: 02/04/2017 DATE OF DISCHARGE: 02/10/2017 HOSPITAL COURSE: This is a 71-year-old male with a past medical history of end-stage renal disease, history of schizoaffective disorder, history of bilateral ankle fracture, presented to [facility] from intermediate facility after a mechanical fall. The patient upon arrival to the emergency room had a chest x-ray which showed findings of left intertrochanteric fracture. The patient was admitted to telemetry. The patient was seen by orthopedist, Dr. Vidal, underwent success ful ORIF of the left hip. Following surgery, the patient had no acute complications and he was disc harged back to skilled nurse facility for continued care and rehabilitation. Please note, during hospital course, the patient noted to have right lower extremity cellulitis and was placed on anti biotic therapy which will be continued for 2 more weeks. The patient's other medical problems inclu de hypertension, coronary artery disease, anemia has been stable during the hospital course. FINAL DIAGNOSES: 1. Left hip fracture status post open reduction internal fixation. 2. End-stage renal disease. 4. Hyperkalemia. 5. Anemia. 6. Mineral bone disorder. 7. Hypertension. 8. Chronic pain syndrome. 9. Coronary artery disease. Please note that at the time of discharge, the patient is stable, in no acute distress. FINAL MEDICATIONS: See reconciliation list. Please note I spent over 40 minutes of time preparing the patient's discharge. Dictated By: CHELSI ASIF DO NR/NTS Conf#: [id number] DID#: [id number] CC: CHELSI ASIF DO;*EndCC*
== END 2017-02-10 15:00 | DRG 480 ==
LOC: E/R 11:26 → TEL 13:05 → MS1 02-08 15:44
PROVIDERS: ADMIT Internal Medicine Nephrology; ATTEND Internal Medicine Nephrology
PROC: 5A1D70Z Performance of Urinary Filtration, Intermittent, Less than 6 Hours Per Day (ICD-10-PCS; 2017-02-04)
PROC: 5A1D70Z Performance of Urinary Filtration, Intermittent, Less than 6 Hours Per Day (ICD-10-PCS; 2017-02-05)
PROC: 0QS704Z Reposition Left Upper Femur with Internal Fixation Device, Open Approach (ICD-10-PCS; principal; 2017-02-07 16:30)
DX: S72.142A Displaced intertrochanteric fracture of left femur, initial encounter for closed fracture (principal); N18.6 End stage renal disease; I12.0 Hypertensive chronic kidney disease with stage 5 chronic kidney disease or end stage renal disease; L89.023 Pressure ulcer of left elbow, stage 3; E87.5 Hyperkalemia; L89.510 Pressure ulcer of right ankle, unstageable; F25.9 Schizoaffective disorder, unspecified; D63.8 Anemia in other chronic diseases classified elsewhere; I25.10 Atherosclerotic heart disease of native coronary artery without angina pectoris; W05.0XXA Fall from non-moving wheelchair, initial encounter; Y93.9 Activity, unspecified; Y92.129 Unspecified place in nursing home as the place of occurrence of the external cause; Y99.8 Other external cause status; Z99.2 Dependence on renal dialysis; Z87.891 Personal history of nicotine dependence; Z90.49 Acquired absence of other specified parts of digestive tract
CPT/HCPCS: 36430; 71010; 73500; 73510; 73530; 80048; 80053; 80202; 83690; 83735; 84100; 84132; 84484; 85025; 85610; 85730; 86850; 86900; 86901; 86920; 87070; 87081; 90935; 93005; 96374; 96375; J0360; J1200; J1644; J2060; J2175; J2250; J2270; J2274; J2370; J2405; J2765; J2795; J3010; J3370; J7030; J7050; P9016

== ENCOUNTER 2017-02-24 17:55 | Inpatient (IN) | payer MEDICARE, OTHER ==
[~2017-02-24] VITALS: Ht 165.1 cm; Wt 56.6 kg
[~2017-02-24 17:55] MED LIST changes: +ACET-2047 PO; +BISA10SU55 RC; +CALC500T11 PO; +CALC667T2 PO; +CRAN425C2 PO; +DOCU-144 PO; +MORP15TA92 PO; +NEPH PO; +PANT40TA3 PO; +SEVE800T10 PO
--- NOTE | 2017-02-24 18:20 | ERD ---
ER Documentation Chief Complaint Chief Complaint PRIVATE AMB, ROXANA MENDOZA, nm POTASSIUM, BUN. HPI 71-year-old man brought in by EMS from retirement for hyperkalemia. He has a history of schizophrenia and end-stage kidney disease and was found to have a potassium of about 7 today. Patient undergoes hemodialysis MWF, unsure if he completed his dialysis yesterday, he does have a history of missed dialysis. He is had no fevers or chills, no vomiting or diarrhea, no complaints of chest pain or shortness of breath. HPI limited by supplemented by reviewing past medical history, retirement records, speaking to EMS, and nursing staff. ROS All systems reviewed and are negative except as per history of present illness. Medications Home Meds Reported Medications Docusate Sodium* (Colace*) 100 Mg Capsule, 200 MG PO Q24H Y for CONSTIPATION, # 30 CAP 02/24/17 Lorazepam* (Lorazepam*) 0.5 Mg Tablet, 0.5 MG PO Q8 Y for ANXIETY, TAB 02/24/17 Hydrocodone/Acetaminophen (Rankin 5-325 Tablet) 1 Each Tablet, 2 EACH PO Q6 Y for PAIN LEVEL 7-10, TAB 02/04/17 Hydrocodone/Acetaminophen (Rankin 5-325 Tablet) 1 Each Tablet, 1 EACH PO Q6 Y for PAIN LEVEL 4-6, TAB 02/04/17 Calcium Acetate* (Phoslo*) 667 Mg Tablet, 667 MG PO WITH MEALS, TAB 02/04/17 Pantoprazole* (Protonix*) 40 Mg Tablet.dr, 40 MG PO DAILY, TAB 02/04/17 Multivit/Ca Carb/B Cmplx/Fa* (Mel-Laura*) 1 Tab Tab, 1 TAB PO DAILY, TAB 02/04/17 Sevelamer Hcl* (Renagel*) 800 Mg Tablet, 1600 MG PO WITH MEALS, TAB 02/04/17 Acetaminophen* (Acetaminophen*) 650 Mg Tablet, 650 MG PO Q4 Y for PAIN AND OR ELEVATED TEMP, #30 TAB 02/04/17 Hydrocodone/Acetaminophen (Rankin 5-325 Tablet) 1 Each Tablet, 1 EACH PO DAILY Y for PAIN MANAGMENT, TAB 02/04/17 Morphine Sulfate* (Ms Contin*) 15 Mg Tablet.sa, 2 MG PO Q4H WHILE AWAKE Y for PAIN, TAB 02/04/17 Bisacodyl (Dulcolax) 10 Mg Supp.rect, 10 MG RC PRN Y for CONSTIPATION, SUPP.RECT 02/04/17 Cranberry Extract (Cranberry) 425 Mg Capsule, 425 MG PO DAILY, CAP 02/04/17 Docusate Sodium* (Colace*) 100 Mg Capsule, 200 MG PO QHS Y for CONSTIPATION, # 60 CAP 02/04/17 Clonidine Hcl* (Clonidine Hcl*) 0.2 Mg Tablet, 0.2 MG PO Q6 Y for ELEVATED BLOOD PRESSURE, TAB 02/04/17 Calcium Carbonate (Oysco-500) 500 Mg Tablet, 500 MG PO DAILY, TAB 02/04/17 Melatonin-Pyridoxine Hcl (Melatonin) 1-10 Mg Tablet, 1 TAB PO HS, TAB 06/04/16 Carvedilol* (Coreg*) 3.125 Mg Tablet, 3.125 MG PO BID, #60 TAB 05/25/16 Allergies Allergies: Coded Allergies: No Known Allergy (Unverified , 02/24/17) PMhx/Soc Schizophrenia, left hip fracture, end-stage renal disease hemodialysis dependent , previous hyperkalemia, anemia, mineral bone disease, hypertension, chronic pain syndrome, CAD, gastritis History of Surgery: Yes (cholecystectomy, appendectomy, hip surgery) Anesthesia Reaction: No (N/A) Hx Neurological Disorder: Yes (schizophrenia) Hx Respiratory Disorders: Yes Hx Cardiac Disorders: Yes Hx Psychiatric Problems: Yes Hx Miscellaneous Medical Probl: Yes (Schizoaffective) Hx Alcohol Use: No Hx Substance Use: Yes Hx Tobacco Use: Yes FmHx Family History: No diabetes Physical Exam Vitals Vital Signs Date Time Temp Pulse Resp B/P Pulse Ox O2 Delivery O2 Flow Rate FiO2 02/24/17 18:13 98.7 67 18 189/81 95 Physical Exam GENERAL: Well-developed, elderly man, appears debilitated, afebrile HEENT: Moist mucous membranes, pink conjunctiva, no cervical spine tenderness or step-off deformities, no goiter, no jaundice or icterus, extraocular movements intact without pain. NEURO: Alert and oriented 1, able to answer simple questions and follow simple commands, no focal deficits or facial asymmetry CARDIAC: Regular rate and rhythm, no murmurs rubs or gallops LUNGS: Clear bilaterally no wheezing crackles or stridor ABDOMEN: Soft nontender, no guarding, no rigidity, no rebound, no psoas sign no obturator sign. SKIN: Warm and dry to touch, superficial skin ulcerations to the lower extremities bilaterally, no purulent discharge EXTREMITIES: No clubbing cyanosis or edema, calves are bilaterally symmetrical, no Homans sign, no popliteal cord sign. Distal pulses equal and bilateral PSYCH: Appears agitated Results 24 hrs Current Medications Medications (Trade) Dose Ordered Sig/Yolis Route PRN Reason Start Time Stop Time Status Last Admin Dose Admin Calcium Gluconate/ Sodium Chloride (Ca Gluc/NS) 110 ml @ 110 mls/hr ONCE ONCE IVPB 02/24/17 18:30 02/24/17 19:29 Sodium Polystyrene Sulfonate (Kayexalate) 30 gm ONCE ONCE PO 02/24/17 18:30 02/24/17 18:31 DC Dextrose (D50w Syringe) 50 ml ONCE STAT IV 02/24/17 18:23 02/24/17 18:25 DC Insulin Human Regular (Humulin R) 8 unit ONCE ONCE IV 02/24/17 18:30 02/24/17 18:31 DC Procedures/MDM IV line was established patient was placed on accessioner rhythm strip revealed a sinus rhythm at about 70 bpm with upright P and T waves. Patient was afebrile EKG performed, read by me revealed a normal sinus rhythm at 70 bpm, left axis deviation with an intraventricular block at 148 ms and peak T waves in most leads consistent with acute hyperkalemia. Chest X-ray 1V Interpreted by me: Soft Tissue: Atelectatic changes bilaterally, no acute infiltrates Bones: No acute abnormalities Mediastinum/Cardiac Silhouette/Lungs: More dialysis catheter in the right chest Potassium was elevated at over 7. I administered dextrose 25 g IV, regular insulin 8 units IV 1, calcium gluconate 1 g IV, and Kayexalate 30 g p.o. Patient to be admitted to telemetry setting for continued medical management and emergent hemodialysis. Departure Diagnosis: Primary Impression: Acute hyperkalemia Additional Impression: End stage kidney disease Condition: KULDIP Andino MD Feb 24, 2017 18:20
[2017-02-24] MEDS ORDERED: DEXTROSE 50% 50 ML SYRINGE IV STA (18:23)
[2017-02-24] MEDS ORDERED: CALCIUM GLUCONATE 10% 1 GM in SOD CHLORIDE 0.9% 100 ML IVPB ONE (18:30)
[2017-02-24] MEDS ORDERED: INSULIN REGULAR, HUMAN 100 UNIT/1 ML 3ML VIAL IV ONE (18:30)
[2017-02-24] MEDS: NA POLYST SULFON 15 GM/60 ML BTL PO ONE ×2 (18:30→20:04)
[2017-02-24] MEDS ORDERED: LORA0.5T PO (19:04)
[2017-02-24] MEDS ORDERED: DOCU-144 PO (19:07)
[2017-02-24] MEDS ORDERED: CARV6.25 PO (19:08)
--- NOTE | 2017-02-24 19:10 | RADRPT ---
PROCEDURE: XR Chest. CLINICAL INDICATION: Abdominal pain. TECHNIQUE: Single frontal view of the chest. COMPARISON: Plain film chest dated 06/08/2016. FINDINGS: Cardiomegaly and atherosclerotic calcifications in the thoracic aorta. Right central venous double-l umen dialysis catheter again seen, with tip now in the superior vena cava. Mild pulmonary vascular congestion. Previously seen right pleural effusion is substantially resolved with mild persistent right lung base pleural fluid. Atelectasis versus airspace disease at bilatera l lung bases. No signs of pleural fluid or pneumothorax are seen. The osseous structures and soft ti ssues are unremarkable. IMPRESSION: 1. Substantially improved right lung base pleural effusion over interval since 06/08/2016. 2. Cardiomegaly with atherosclerotic calcifications in the thoracic aorta. 3. Mild failure versus volume overload, new over the interval. RPTAT: [facility] Physician Ebenezer Date Time Electronically viewed and signed by Physician Ebenezer on 02/24/2017 19:10 RS/
[2017-02-24] MEDS ORDERED: FER325 PO (19:11)
[2017-02-24] MEDS ORDERED: HEP30MU30 IJ (19:12)
[2017-02-24] MEDS ORDERED: LISI20TA11 PO (19:12)
[2017-02-24] MEDS ORDERED: MULTI PO (19:13)
[2017-02-24] MEDS ORDERED: ALBUTEROL 0.083% (NEB) 2.5 MG/3 ML AMP HHN STA (19:13)
[2017-02-24] MEDS ORDERED: NEPH PO (19:18)
[2017-02-24] MEDS ORDERED: ASCO500C7 PO (19:19)
[2017-02-24] MEDS ORDERED: ZINC220T PO (19:19)
[2017-02-24 19:56] LABS: BASOPHILS % 0.4 % (0.0-2.0); EOSINOPHILS # 0.1 10^3/ul (0.0-0.5); EOSINOPHILS % 1.2 % (0.0-7.0); HEMATOCRIT 29.5 % (42.0-52.0); HEMOGLOBIN 9.4 g/dl (14.0-18.0); LYMPHOCYTES # 0.6 10^3/ul (0.8-2.9); LYMPHOCYTES % 5.8 % (15.0-51.0); MEAN CORPUSCULAR HEMOGLOBIN 29.7 pg (29.0-33.0); MEAN CORPUSCULAR HGB CONC 31.9 g/dl (32.0-37.0); MEAN CORPUSCULAR VOLUME 93.1 fl (82.0-101.0); MONOCYTES % 9.2 % (0.0-11.0); NEUTROPHIL # 9.2 10^3/ul (1.6-7.5); NEUTROPHILS % 82.8 % (39.0-77.0); PLATELET COUNT 265 10^3/UL (140-415); RED BLOOD COUNT 3.17 10^6/ul (4.70-6.10); RED CELL DISTRIBUTION WIDTH 15.8 % (11.5-14.5); WHITE BLOOD COUNT 11.1 10^3/ul (4.8-10.8)
[2017-02-24 20:16] LABS: ALBUMIN 3.2 g/dl (3.3-4.9); ALBUMIN/GLOBULIN RATIO 0.94; CALCIUM 9.7 mg/dl (8.4-10.2); TOTAL PROTEIN 6.6 g/dl (6.1-8.1)
[2017-02-24 20:27] LABS: TROPONIN-I 0.05 ng/ml (0.00-0.12)
[2017-02-24 20:34] LABS: CREATININE 14.17 mg/dl (0.61-1.24); POTASSIUM 7.5 mmol/L (3.5-5.1)
[2017-02-24] MEDS ORDERED: NA BICARBONATE 8.4% 50 ML SYG IV ONE (21:00)
[2017-02-24 21:23] LABS: CALCIUM 9.7 mg/dl (8.4-10.2)
[2017-02-24 21:36] LABS: POTASSIUM 6.3 mmol/L (3.5-5.1)
[2017-02-24 21:42] LABS: CREATININE 14.32 mg/dl (0.61-1.24)
--- NOTE | 2017-02-24 21:45 | QN ---
Documentation Comment Patient signed out to me by previous physician. This patient was transferred to the emergency room for evaluation of hyperkalemia. He was found to have a potassium of 7.5 due to dialysis noncompliance. He was given calcium gluconate , insulin, dextrose, albuterol. The patient will was also given sodium bicarbonate. His repeat potassium is 6.3. I have contacted his consumer banker and admitting physician Dr. Yates is aware and will be admitting this patient. The patient will be admitted to the telemetry floor at this time. KEVAN DECKER DO Feb 24, 2017 21:45
[2017-02-24] MEDS ORDERED: ACETAMINOPHEN 325 MG TAB PO PRN (22:00)
[2017-02-24] MEDS ORDERED: ONDANSETRON 4 MG INJ IV PRN (22:00)
[2017-02-25] VITALS (11 sets, daily range): BP systolic 128–207; BP diastolic 59–89; PULSE 74–91; RESP 19; TEMP 98.7; Ht 165.1 cm; Wt 56.6 kg
[2017-02-25] MEDS ORDERED: LABETALOL HCL 20MG INJ IV ONE (01:30)
[2017-02-25] MEDS ORDERED: NICARDipine HCL 30 MG CAPSULE PO ONE ×2 (01:30→04:30)
[2017-02-25] MEDS ORDERED: hydrALAzine 20 MG INJ IV ONE ×2 (04:30→07:00)
[2017-02-25 08:44] LABS: CALCIUM 10.3 mg/dl (8.4-10.2)
[2017-02-25 08:54] LABS: CREATININE 15.21 mg/dl (0.61-1.24); POTASSIUM 7.3 mmol/L (3.5-5.1)
[2017-02-25] MEDS ORDERED: CALCIUM GLUCONATE 10% 1 GM in SOD CHLORIDE 0.9% 100 ML IVPB ONE (09:30)
[2017-02-25] MEDS ORDERED: LORAZEPAM 2 MG INJ IV ONE (09:30)
[2017-02-25] MEDS ORDERED: INSULIN REGULAR, HUMAN 100 UNIT/1 ML 3ML VIAL IV ONE (09:30)
[2017-02-25] MEDS ORDERED: DEXTROSE 50% 50 ML SYRINGE IV ONE (10:30)
[2017-02-25] MEDS ORDERED: BISACODYL 10 MG SUPP PR PRN (19:30)
[2017-02-25] MEDS ORDERED: DOCUSATE SODIUM 100 MG CAP PO PRN (19:30)
[2017-02-25] MEDS ORDERED: ACETAMINOPHEN 325 MG TAB PO PRN (19:30)
[2017-02-25] MEDS: LISINOPRIL 20 MG TAB PO SCH (20:50)
[2017-02-26] VITALS (20 sets, daily range): BP systolic 124–196; BP diastolic 63–109; PULSE 70–87; RESP 18–19
[2017-02-26] MEDS: LORAZEPAM 0.5 MG TAB PO PRN (03:00)
[2017-02-26] MEDS: DIPHENHYDRAMINE 50 MG INJ IV PRN (03:38)
[2017-02-26] MEDS: SEVELAMER 800 MG TAB PO SCH ×3 (08:00→17:32)
[2017-02-26] MEDS: CALCIUM ACETATE 667 MG CAP PO SCH ×3 (08:00→17:32)
[2017-02-26] MEDS: LISINOPRIL 20 MG TAB PO SCH (09:00)
[2017-02-26] MEDS: ZINC SULFATE 220 MG CAP PO SCH (09:00)
[2017-02-26] MEDS: ASCORBIC ACID 500 MG TAB PO SCH (09:00)
[2017-02-26] MEDS: FERROUS SULFATE (EC) 325 MG TAB PO SCH (09:00)
[2017-02-26] MEDS: MULTIVIT/CA CARB/B CMPLX/FA TAB PO SCH (09:00)
[2017-02-26] MEDS: MULTIVITAMINS THERAPEUTIC TAB PO SCH (09:00)
[2017-02-26] MEDS: PANTOPRAZOLE (EC) 40 MG TAB PO SCH (09:00)
[2017-02-26 10:06] LABS: ABNORMAL IP MESSAGE 1; BASOPHILS % 0.3 % (0.0-2.0); EOSINOPHILS # 0.1 10^3/ul (0.0-0.5); EOSINOPHILS % 1.3 % (0.0-7.0); LYMPHOCYTES # 0.7 10^3/ul (0.8-2.9); LYMPHOCYTES % 8.1 % (15.0-51.0); MEAN CORPUSCULAR HEMOGLOBIN 29.1 pg (29.0-33.0); MEAN CORPUSCULAR HGB CONC 32.3 g/dl (32.0-37.0); MEAN CORPUSCULAR VOLUME 90.1 fl (82.0-101.0); MEAN PLATELET VOLUME 9.2 fl (7.4-10.4); MONOCYTE # 1.6 10^3/ul (0.3-0.9); MONOCYTES % 18.9 % (0.0-11.0); NEUTROPHIL # 6.2 10^3/ul (1.6-7.5); NEUTROPHILS % 71.2 % (39.0-77.0); PLATELET COUNT 250 10^3/UL (140-415); POSITIVE DIFF @See below; RED BLOOD COUNT 3.44 10^6/ul (4.70-6.10); RED CELL DISTRIBUTION WIDTH 15.9 % (11.5-14.5); WHITE BLOOD COUNT 8.7 10^3/ul (4.8-10.8)
[2017-02-26 10:30] LABS: CALCIUM 9.2 mg/dl (8.4-10.2); CREATININE 9.08 mg/dl (0.61-1.24); POTASSIUM 4.4 mmol/L (3.5-5.1)
--- NOTE | 2017-02-26 11:30 | HP ---
DATE OF ADMISSION: 02/24/2017 CHIEF COMPLAINT: Altered mental status, hyperkalemia. HISTORY OF PRESENT ILLNESS: A 77-year-old male with a past medical history of end-stage renal disea se, history of schizoaffective disorder, history of right lower ankle fracture, history of medical n oncompliance, who presents to [facility] from a retirement facility due to [facility] hemodialysis. The patient refused to go to hemodialysis. As a result, he was brought into [facility] emergency room for evaluation. Upon arrival, the patient was noted to be uremic with a BUN of 156 , potassium 7.5. The patient in the emergency room was given temporizing measures with calcium gluc venkat and IV insulin. The patient was admitted to telemetry and had an urgent hemodialysis. The pa florin otherwise was also placed on restraints as he was attempting to pull out his IV lines. There were no reports of any hemoptysis, hematemesis or hematochezia. PAST MEDICAL HISTORY: History of end-stage renal disease, hypertension, osteoarthritis. PAST SURGICAL HISTORY: Status post PermCath placement, status post appendectomy, status post cholec ystectomy. Status post open reduction internal fixation of the right ankle and ORIF of the left hip . MEDICATIONS: The patient's medications have been reviewed and reconciled. ALLERGIES: NO KNOWN DRUG ALLERGIES. SOCIAL HISTORY: Does not drink, smoke or do drugs. FAMILY HISTORY: Noncontributory. REVIEW OF SYSTEMS: A 14-point review of systems was conducted. Pertinent positives stated in HPI, otherwise negative. PHYSICAL EXAMINATION: VITAL SIGNS: Blood pressure is 130/65, temperature 98.4, pulse 72, respirations 16. HEENT: Head is normocephalic. Pupils are reactive to light. NECK: Supple. HEART: Regular rate. LUNGS: Show diminished breath sounds at base. ABDOMEN: Soft, nontender to palpation without rebound or guarding. EXTREMITIES: Negative for clubbing, cyanosis, no edema. DERMATOLOGIC: No rashes. MUSCULOSKELETAL: No joint effusions. NEUROLOGIC: No focal deficits. LABORATORY DATA: From 02/25/2017 was reviewed. Laboratory from 02/26/2017 is pending. ASSESSMENT AND PLAN: This is a 71-year-old male who presents with: 1. End-stage renal disease. The patient has been noncompliant with hemodialysis. The patient is c urrently hyperkalemic and uremic. The patient is status post dialysis yesterday. Anticipate daily dialysis on a low potassium bath for solute clearance and volume removal. Continue to monitor. 2. Hyperkalemia secondary to end-stage renal disease in conjunction with medical noncompliance. Th e patient has refused hemodialysis. Continue dialysis on a low potassium bath. Continue low-potass ium diet. 3. Uremia. Continue dialysis. Monitor for dialysis disequilibrium syndrome. 4. Anemia. Monitor hemoglobin and hematocrit levels. Will give Epogen as needed. 5. Mineral bone disorder, monitor calcium and phosphorus levels. Continue phosphate binders. Cont inue hemodialysis. 6. Hypertension. Continue current blood pressure regimen. Continue ultrafiltration with hemodialy sis. 7. Lower extremity wounds. Continue wound care. 8. Status post left hip open reduction internal fixation. Continue medical management, physical . 9. History of coronary artery disease. Continue medical management. 10. History of deep venous thrombosis prophylaxis. 11. Chronic pain syndrome. Continue current pain regimen. Please note I spent 25 minutes in [id number] time with the patient. The patient is FULL CODE. Dictated By: CHELSI ASIF DO NR/NTS Conf#: [id number] DID#: [id number] CC: NGHIA SEQUEIRA MD;*EndCC*
--- NOTE | 2017-02-26 12:39 | CONS ---
DATE OF ADMISSION: 02/24/2017 DATE OF CONSULTATION: 02/26/2017 TYPE OF CONSULTATION: Infectious Disease. REASON FOR CONSULTATION: Antibiotic management. HISTORY OF PRESENT ILLNESS: He will follow skin is a 71-year-old male brought in by EMS with hyperk alemia past problems include: 1. End-stage renal disease. 2. Schizophrenia. 3. Hemodialysis. The patient had a potassium 7 on admission, he had no fever or chills, nausea or vomiting. PAST SURGICAL HISTORY: Includes status post left hip fracture and open reduction internal fixation, status post cholecystectomy, status post appendectomy. The patient also has hypertension, coronary artery disease, chronic pain syndrome and gastritis. In addition to schizophrenia. LABORATORY: On admission, his white count was 11.1, H and H 9.4 and 29.5, platelet count of 265,0 00. Today his white count is 8.7, BUN and creatinine is 162/15.2, potassium 7.3. Chest x-ray shows improved right lung base, pleural effusion since 06/08/2016, mild failure. PAST MEDICAL HISTORY: Operations as outlined. FAMILY HISTORY: Noncontributory. SOCIAL HISTORY: Does not smoke, drink or abuse drugs. ALLERGIES: PENICILLIN AND SULFA OR FOODS. MEDICATIONS: Per chart. REVIEW OF SYSTEMS as he does not drink, but he does use, substance abuse and he is a smoker. ALLERGIES: NONE TO PENICILLIN, SULFA. MEDICATIONS: Per chart. REVIEW OF SYSTEMS: Noncontributory. PHYSICAL EXAMINATION: GENERAL: The patient is an elderly, debilitated male who is awake, responsive, in no acute distress . VITAL SIGNS: Stable. He is afebrile. SKIN: Without generalized rash. Warm and dry to touch. HEENT: Within normal limits. NECK: Supple. LYMPH NODES: None palpable. CHEST: Decreased breath sounds at the bases. HEART: Without murmur or gallop. ABDOMEN: Soft, nontender, without organosplenomegaly or masses. EXTREMITIES: Without cyanosis, clubbing, or edema. RECTAL AND GENITAL: Deferred. NEUROLOGIC: No focal neurological abnormalities. He has a dialysis catheter in the right chest. IMPRESSION AND PLAN: The patient has end-stage renal disease with hyperkalemia. At this point, I d o not see any evidence of infection, so we will just observe him. I will dictate my findings to Dr. Tay. Dictated By: STANISLWA MIGUEL MD, JD/ED Conf#: [id number] DID#: [id number]
[2017-02-27] VITALS (18 sets, daily range): BP systolic 141–202; BP diastolic 63–91; PULSE 74–86; RESP 16–20
[2017-02-27] MEDS: LORAZEPAM 0.5 MG TAB PO PRN (03:07)
[2017-02-27] MEDS: hydrALAzine 20 MG INJ IV PRN ×3 (03:07→21:50)
[2017-02-27] MEDS: DIPHENHYDRAMINE 50 MG INJ IV PRN (03:09)
[2017-02-27 07:03] LABS: ABNORMAL IP MESSAGE 1; BASOPHILS % 0.5 % (0.0-2.0); EOSINOPHILS # 0.1 10^3/ul (0.0-0.5); HEMATOCRIT 34.9 % (42.0-52.0); HEMOGLOBIN 11.1 g/dl (14.0-18.0); LYMPHOCYTES # 0.6 10^3/ul (0.8-2.9); LYMPHOCYTES % 7.6 % (15.0-51.0); MEAN CORPUSCULAR HEMOGLOBIN 29.4 pg (29.0-33.0); MEAN CORPUSCULAR HGB CONC 31.8 g/dl (32.0-37.0); MEAN CORPUSCULAR VOLUME 92.6 fl (82.0-101.0); MEAN PLATELET VOLUME 8.9 fl (7.4-10.4); MONOCYTE # 1.6 10^3/ul (0.3-0.9); MONOCYTES % 19.6 % (0.0-11.0); NEUTROPHIL # 5.8 10^3/ul (1.6-7.5); NEUTROPHILS % 71.1 % (39.0-77.0); PLATELET COUNT 239 10^3/UL (140-415); POSITIVE DIFF @See below; RED BLOOD COUNT 3.77 10^6/ul (4.70-6.10); RED CELL DISTRIBUTION WIDTH 15.9 % (11.5-14.5); WHITE BLOOD COUNT 8.2 10^3/ul (4.8-10.8)
[2017-02-27 07:37] LABS: CALCIUM 9.9 mg/dl (8.4-10.2); CREATININE 7.18 mg/dl (0.61-1.24); MAGNESIUM 2.3 mg/dl (1.7-2.5); PHOSPHORUS 4.6 mg/dl (2.5-4.9); POTASSIUM 3.7 mmol/L (3.5-5.1)
[2017-02-27] MEDS: CALCIUM ACETATE 667 MG CAP PO SCH ×3 (09:19→17:40)
[2017-02-27] MEDS: MULTIVIT/CA CARB/B CMPLX/FA TAB PO SCH (09:19)
[2017-02-27] MEDS: SEVELAMER 800 MG TAB PO SCH ×3 (09:19→17:40)
[2017-02-27] MEDS: AMLODIPINE 10 MG TAB PO SCH (09:19)
[2017-02-27] MEDS: ASCORBIC ACID 500 MG TAB PO SCH (09:19)
[2017-02-27] MEDS: PANTOPRAZOLE (EC) 40 MG TAB PO SCH (09:20)
[2017-02-27] MEDS: ZINC SULFATE 220 MG CAP PO SCH (09:20)
[2017-02-27] MEDS: FERROUS SULFATE (EC) 325 MG TAB PO SCH (09:20)
[2017-02-27] MEDS: MULTIVITAMINS THERAPEUTIC TAB PO SCH (09:20)
[2017-02-27] MEDS: LISINOPRIL 20 MG TAB PO SCH (09:20)
[2017-02-27] MEDS: HEPARIN 5,000 UNIT/0.5 ML VIAL SC SCH ×2 (09:31→21:31)
--- NOTE | 2017-02-27 11:14 | PN ---
DATE: 02/27/2017 SUBJECTIVE: The patient remains medically noncompliant. The patient remains in restraints. The mariia catherine had hemodialysis yesterday, tolerated well. OBJECTIVE: VITAL SIGNS: Blood pressure is 189/85, respirations 18, pulse 77, temperature 97.5. HEENT: Head is normocephalic. NECK: Supple. HEART: Regular rate. LUNGS: Show diminished breath sounds at base. ABDOMEN: Soft, nontender to palpation. No rebound or guarding. EXTREMITIES: Negative for clubbing, cyanosis, no edema. DERMATOLOGIC: No rashes. MUSCULOSKELETAL: No joint effusions. NEUROLOGIC: No change in exam. MEDICATIONS: The patient's medications have been reviewed. LABORATORY DATA: Shows a sodium 144, potassium 3.7, BUN 51, creatinine 7.18. White count 8.2, hemo globin 11.1, hematocrit 34.9, platelet count is 39. ASSESSMENT AND PLAN: 1. End-stage renal disease. The patient had hemodialysis yesterday, tolerated well. Anticipate di alysis for tomorrow. 2. Hyperkalemia secondary to end-stage renal disease, improved with hemodialysis. 3. Uremia, improving. Continue dialysis. 4. Anemia. Hemoglobin levels are stable. Defer Epogen at this time. 5. Mineral bone disorder. Continue to monitor calcium and phosphorus levels. 6. Lower extremity wounds. Continue wound care. 7. Leukocytosis. Appreciate ID evaluation. Continue to monitor. 8. Status post open reduction internal fixation of the left hip. Continue medical management. Con tinue physical therapy. 9. Chronic disease. Continue medical management. 10. Chronic pain syndrome. Continue current pain regimen. 11. Gastrointestinal and deep venous thrombosis prophylaxis. Continue proton pump inhibitor and se quential leg squeezers. Dictated By: CHELSI ASIF DO NR/NTS Conf#: [id number] DID#: [id number] CC: NGHIA SEQUEIRA MD;*EndCC*
[2017-02-27] MEDS ORDERED: VANCOMYCIN IV PER PHARMACY XX SCH (15:30)
--- NOTE | 2017-02-27 17:20 | PN ---
DATE: 02/27/2017 SUBJECTIVE: The patient is awake, looks comfortable. No fevers overnight. VITAL SIGNS: Stable. LABORATORY: WBC 8.2, no shift, no bands. MICROBIOLOGY: Nares swab negative. DIAGNOSTICS: Chest x-ray on admission revealed no pneumonia. INDWELLINGS: Right chest PermCath. PHYSICAL EXAMINATION: GENERAL: Chronically ill-appearing, elderly man in no distress. HEENT: Head atraumatic, normocephalic. Sclerae anicteric. Buccal mucosa dry. NECK: Supple. CHEST: Rise symmetrical. Breath sounds diminished to bases. HEART: S1, S2. ABDOMEN: Soft. Bowel tones present. EXTREMITIES: With right leg chronic wound. ASSESSMENT: 1. Right lower extremity chronic wound with previous culture grew oxacillin-sensitive Staphylococcu s aureus. 2. End-stage renal disease. 3. Hypertension. 4. History of left hip open reduction and internal fixation. 5. History of schizoaffective disorder. PLAN: The patient remains stable. We are going to start him on IV vancomycin and add Silvadene cre am to the wound on his right lower extremity. Continue present care. Hemodialysis per renal. Dictated By: ERIC GARCIA WASHER ENGINEER for STANISLAW MIGUEL MD NI/NTS Conf#: [id number] DID#: [id number] CC: NGHIA SEQUEIRA MD;*EndCC*
--- NOTE | 2017-02-27 17:26 | RADRPT ---
PROCEDURE: XR Chest. CLINICAL INDICATION: Perma-Cath placement TECHNIQUE: Single frontal view of the chest was obtained COMPARISON: 02/04/2017 FINDINGS: Right Perma-Cath tip near atriocaval junction. No pneumothorax is seen with the patient semi-erect. Minimal enlargement of the cardiac silhouette is again seen. There is minimal prominence of the lung interstitium likely minimal chronic changes. There is the appearance of a small right pleural effusion again seen. Mild tortuosity of thoracic ao rta again seen. Calcification in the aortic arch. ECG leads projected over the chest. Appearance of chronic distal left clavicle fracture again seen. Chronic left posterior 3rd rib fracture again seen . Suggestion of implanted cardiac recorder device again projected over the left mid chest. IMPRESSION: Right Perma-Cath tip near atriocaval junction. Please see above. RPTAT: HJES .Saul Lee MD, Date Time Electronically viewed and signed by .Saul Lee MD, on 02/27/2017 17:26 .S/
[2017-02-27] MEDS ORDERED: VANCOMYCIN 1 GM in NS 250 ML IVPB ONE (19:00)
[2017-02-27] MEDS: SILVER SULFADIAZINE 1% 400 GM CR TOP SCH (22:43)
[2017-02-28] VITALS (15 sets, daily range): BP systolic 102–183; BP diastolic 62–91; PULSE 79–85; RESP 18–20
[2017-02-28] MEDS: hydrALAzine 20 MG INJ IV PRN (02:31)
[2017-02-28] MEDS ORDERED: NITROGLYCERIN 2% 1 GM OINT PKT TD PRN (02:45)
[2017-02-28 06:00] LABS: BASOPHILS % 0.3 % (0.0-2.0); EOSINOPHILS # 0.2 10^3/ul (0.0-0.5); EOSINOPHILS % 1.6 % (0.0-7.0); HEMATOCRIT 33.7 % (42.0-52.0); HEMOGLOBIN 10.9 g/dl (14.0-18.0); LYMPHOCYTES # 0.7 10^3/ul (0.8-2.9); LYMPHOCYTES % 6.2 % (15.0-51.0); MEAN CORPUSCULAR HEMOGLOBIN 29.7 pg (29.0-33.0); MEAN CORPUSCULAR HGB CONC 32.3 g/dl (32.0-37.0); MEAN CORPUSCULAR VOLUME 91.8 fl (82.0-101.0); MEAN PLATELET VOLUME 9.4 fl (7.4-10.4); MONOCYTE # 1.5 10^3/ul (0.3-0.9); MONOCYTES % 14.4 % (0.0-11.0); NEUTROPHILS % 77.2 % (39.0-77.0); PLATELET COUNT 248 10^3/UL (140-415); RED BLOOD COUNT 3.67 10^6/ul (4.70-6.10); RED CELL DISTRIBUTION WIDTH 15.8 % (11.5-14.5); WHITE BLOOD COUNT 10.4 10^3/ul (4.8-10.8)
[2017-02-28 06:42] LABS: CALCIUM 9.7 mg/dl (8.4-10.2); CREATININE 8.9 mg/dl (0.61-1.24); MAGNESIUM 2.3 mg/dl (1.7-2.5)
[2017-02-28] MEDS: PANTOPRAZOLE (EC) 40 MG TAB PO SCH (08:29)
[2017-02-28] MEDS: CALCIUM ACETATE 667 MG CAP PO SCH ×5 (08:29→17:35)
[2017-02-28] MEDS: LISINOPRIL 20 MG TAB PO SCH (08:29)
[2017-02-28] MEDS: AMLODIPINE 10 MG TAB PO SCH (08:30)
[2017-02-28] MEDS: MULTIVIT/CA CARB/B CMPLX/FA TAB PO SCH (08:30)
[2017-02-28] MEDS: FERROUS SULFATE (EC) 325 MG TAB PO SCH (08:30)
[2017-02-28] MEDS: ASCORBIC ACID 500 MG TAB PO SCH (08:30)
[2017-02-28] MEDS: HEPARIN 5,000 UNIT/0.5 ML VIAL SC SCH ×2 (08:30→20:36)
[2017-02-28] MEDS: SILVER SULFADIAZINE 1% 400 GM CR TOP SCH ×2 (08:30→20:39)
[2017-02-28] MEDS: MULTIVITAMINS THERAPEUTIC TAB PO SCH (08:30)
[2017-02-28] MEDS: SEVELAMER 800 MG TAB PO SCH ×5 (08:30→17:35)
[2017-02-28] MEDS: ZINC SULFATE 220 MG CAP PO SCH (08:30)
[2017-02-28] MEDS ORDERED: SILVER SULFADIAZINE 1% 25 GM CR TOP SCH (09:00)
[2017-02-28] MEDS ORDERED: LISINOPRIL 20 MG TAB PO ONE (09:00)
--- NOTE | 2017-02-28 11:39 | PN ---
DATE: 02/28/2017 SUBJECTIVE: The patient is stable. The patient remains in restraints due to agitation, although cl inically improving. No other events noted. OBJECTIVE: VITAL SIGNS: Blood pressure is ____/78, respiration 18, pulse 87, temperature 98.4. HEENT: Head is normocephalic. NECK: Supple. HEART: Regular rate. LUNGS: Show diminished breath sounds at base. ABDOMEN: Soft, nontender to palpation. No rebound or guarding. EXTREMITIES: Negative for clubbing, cyanosis, no edema. DERMATOLOGIC: No rashes. MUSCULOSKELETAL: No joint effusions. NEUROLOGIC: No change in exam. MEDICATIONS: The patient's medications have been reviewed. LABORATORY DATA: Shows sodium 145, potassium 4.4, BUN 73, creatinine 8.90. White count 10.4, hemog lobin 10.9, platelet count is 248. ASSESSMENT AND PLAN: 1. End-stage renal disease. The patient is scheduled for hemodialysis today. Will dialyze for 3 h ours on 3 K bath, calcium 2.5. 2. Hypokalemia, improved. Continue dialysis on a low potassium bath. 3. Uremia improving. Continue hemodialysis. 4. Anemia. Monitor hemoglobin and hematocrit levels. Defer Epogen at this time. 5. Mineral bone disorder. Continue to monitor calcium and phosphorus levels. 6. Lower extremity wounds. Continue wound care. Continue antibiotic therapy. Appreciate ID's breanne ly. 7. Status post open reduction internal fixation of left hip. Continue medical management and physi moncho therapy. 8. Chronic pain syndrome. Continue current pain regimen. 9. Gastrointestinal and deep venous thrombosis prophylaxis. Continue proton pump inhibitor and seq uential leg squeezers. Dictated By: CHELSI AGGARWAL/ED Conf#: [id number] DID#: [id number]
--- NOTE | 2017-02-28 20:21 | CONS ---
Date/Time of Note Date/Time of Note DATE: 02/28/17 TIME: 20:21 Assessment/Plan Assessment/Plan Chief Complaint/Hosp Course SUBJECTIVE: The patient is awake, looks comfortable. No fevers overnight. VITAL SIGNS: Stable. MICROBIOLOGY: Nares swab negative. DIAGNOSTICS: Chest x-ray on admission revealed no pneumonia. INDWELLINGS: Right chest PermCath. Abx: Vanco PHYSICAL EXAMINATION: GENERAL: Chronically ill-appearing, elderly man in no distress. HEENT: Head atraumatic, normocephalic. Sclerae anicteric. Buccal mucosa dry. NECK: Supple. CHEST: Rise symmetrical. Breath sounds diminished to bases. HEART: S1, S2. ABDOMEN: Soft. Bowel tones present. EXTREMITIES: With right leg chronic wound. ASSESSMENT: 1. Right lower extremity chronic wound with previous culture grew oxacillin- sensitive Staphylococcus aureus. 2. End-stage renal disease. 3. Hypertension. 4. History of left hip open reduction and internal fixation. 5. History of schizoaffective disorder. PLAN: The patient remains stable. Continue Vanco and topical [place] DW staff Problems: Consultation Date/Type/Reason Admit Date/Time Feb 24, 2017 at 21:42 Initial Consult Date Type of Consultation: ID Exam/Review of Systems Vital Signs Vitals Vital Signs Date Time Temp Pulse Resp B/P Pulse Ox O2 Delivery O2 Flow Rate FiO2 02/28/17 15:00 97.9 78 18 159/70 95 02/28/17 06:00 Room Air 02/24/17 19:30 21 Intake and Output 02/27/17 02/27/17 02/28/17 15:00 23:00 07:00 Intake Total 200 ml 1100 ml Balance 200 ml 1100 ml Results Result Diagram: 02/28/17 0514 02/28/17 0514 Results 24 hrs Laboratory Tests Test 02/28/17 05:14 02/28/17 07:57 White Blood Count 10.4 # Red Blood Count 3.67 L Hemoglobin 10.9 L Hematocrit 33.7 L Mean Corpuscular Volume 91.8 Mean Corpuscular Hemoglobin 29.7 Mean Corpuscular Hemoglobin Concent 32.3 Red Cell Distribution Width 15.8 H Platelet Count 248 Mean Platelet Volume 9.4 Neutrophils % 77.2 H Lymphocytes % 6.2 L Monocytes % 14.4 H Eosinophils % 1.6 Basophils % 0.3 Nucleated Red Blood Cells % 0.0 Neutrophils # 8.0 H Lymphocytes # 0.7 L Monocytes # 1.5 H Eosinophils # 0.2 Basophils # 0.0 Nucleated Red Blood Cells # 0.0 Sodium Level 145 H Potassium Level 4.0 Chloride Level 104 Carbon Dioxide Level 23 Anion Gap 22 H Blood Urea Nitrogen 73 H Creatinine 8.90 H Glucose Level 96 Calcium Level 9.7 Phosphorus Level 4.0 Magnesium Level 2.3 Bedside Glucose 109 Medications Medications Current Medications Acetaminophen (Tylenol Tab) 650 mg Q4 PRN PO PAIN AND OR ELEVATED TEMP; Start 02/25/17 at 19:30 Ascorbic Acid (Vitamin C) 500 mg DAILY PO Last administered on 02/28/17 08:30 ; Admin Dose 500 MG; Start 02/26/17 at 09:00 Bisacodyl (Dulcolax Supp) 10 mg PRN PRN [place] CONSTIPATION; Start 02/25/17 at 19: 30 Carvedilol (Coreg) 6.25 mg BID PO Last administered on 02/27/17 21:46; Admin Dose 6.25 MG; Start 02/25/17 at 21:00 Clonidine (Catapres) 0.2 mg Q6 PRN PO ELEVATED BLOOD PRESSURE Last administered on 02/26/17 21:22; Admin Dose 0.2 MG; Start 02/25/17 at 19:30; Status Future hold Docusate Sodium (Colace) 200 mg Q24H PRN PO CONSTIPATION; Start 02/25/17 at 19 :30 Ferrous Sulfate (Ferrous Sulfate (Ec)) 325 mg DAILY PO Last administered on 08:30; Admin Dose 325 MG; Start 02/26/17 at 09:00 Lorazepam (Ativan) 0.5 mg Q8 PRN PO ANXIETY Last administered on 02/27/17 03: 07; Admin Dose 0.5 MG; Start 02/25/17 at 19:30 Multivit/Ca Carb/ B Cmplx/FA/Prenat (Mel-Laura) 1 tab DAILY PO Last administered on 02/28/17 08:30; Admin Dose 1 TAB; Start 02/26/17 at 09:00 Multivitamins Therapeutic (Theragran) 1 tab DAILY PO Last administered on 02/28 08:30; Admin Dose 1 TAB; Start 02/26/17 at 09:00 Pantoprazole (Protonix Tab) 40 mg DAILY PO Last administered on 02/28/17 08: 29; Admin Dose 40 MG; Start 02/26/17 at 09:00 Zinc Sulfate (Zinc Sulfate) 220 mg DAILY PO Last administered on 02/28/17 08: 30; Admin Dose 220 MG; Start 02/26/17 at 09:00 Diphenhydramine HCl (Benadryl) 25 mg Q6H PRN IV ITCHING Last administered on 03:09; Admin Dose 25 MG; Start 02/26/17 at 03:00 Hydralazine HCl (Apresoline) 5 mg Q6H PRN IV ELEVATED BLOOD PRESSURE Last administered on 02/28/17 02:31; Admin Dose 5 MG; Start 02/27/17 at 02:40 Amlodipine Besylate (Norvasc) 10 mg DAILY PO Last administered on 02/27/17 09 :19; Admin Dose 10 MG; Start 02/27/17 at 09:00 Heparin Sodium (Porcine) (Heparin (5000 Units/0.5 ml)) 5,000 unit BID SC Last administered on 02/27/17 21:31; Admin Dose 5,000 UNIT; Start 02/27/17 at 09: 00 Silver Sulfadiazine (Thermazene 1% 400 Gm) 1 applic BID TOP Last administered on 02/28/17 08:30; Admin Dose 1 APPLIC; Start 02/27/17 at 21:00 Nitroglycerin (Nitroglycerin 2% Oint) 1 inch Q6H PRN TD SBP ABOVE 160mmHg; Start 02/28/17 at 02:45 Lisinopril (Zestril) 40 mg DAILY PO ; Start 03/01/17 at 09:00 Miscellaneous Information (*Rx Drug Level Order Reminder*) VANCO RANDOM W/ AM LABS... ONCE ONCE XX ; Start 03/01/17 at 05:00; Stop 03/01/17 at 05:01 ERIC GARCIA NP Feb 28, 2017 20:21
[2017-03-01 03:11] VITALS: BP 167/78; RESP 18
[2017-03-01 06:31] VITALS: BP 155/72
[2017-03-01] MEDS: DIPHENHYDRAMINE 50 MG INJ IV PRN (06:40)
[2017-03-01 07:22] LABS: CREATININE 6.71 mg/dl (0.61-1.24); POTASSIUM 3.7 mmol/L (3.5-5.1)
[2017-03-01 07:23] LABS: CALCIUM 9.7 mg/dl (8.4-10.2); MAGNESIUM 2.1 mg/dl (1.7-2.5); PHOSPHORUS 3.4 mg/dl (2.5-4.9)
[2017-03-01 08:00] VITALS: BP 174/77; RESP 16
[2017-03-01] MEDS: SEVELAMER 800 MG TAB PO SCH ×3 (08:12→18:33)
[2017-03-01] MEDS: CALCIUM ACETATE 667 MG CAP PO SCH ×3 (08:12→18:33)
[2017-03-01] MEDS: AMLODIPINE 10 MG TAB PO SCH (09:44)
[2017-03-01] MEDS: PANTOPRAZOLE (EC) 40 MG TAB PO SCH (09:44)
[2017-03-01] MEDS: ASCORBIC ACID 500 MG TAB PO SCH (09:44)
[2017-03-01] MEDS: MULTIVIT/CA CARB/B CMPLX/FA TAB PO SCH (09:44)
[2017-03-01] MEDS: ZINC SULFATE 220 MG CAP PO SCH (09:45)
[2017-03-01] MEDS: MULTIVITAMINS THERAPEUTIC TAB PO SCH (09:45)
[2017-03-01] MEDS: LISINOPRIL 20 MG TAB PO SCH (09:45)
[2017-03-01] MEDS: FERROUS SULFATE (EC) 325 MG TAB PO SCH (09:45)
[2017-03-01] MEDS: SILVER SULFADIAZINE 1% 400 GM CR TOP SCH ×2 (09:46→20:57)
[2017-03-01] MEDS: HEPARIN 5,000 UNIT/0.5 ML VIAL SC SCH ×3 (09:47→21:57)
[2017-03-01 11:00] VITALS: BP 256/70; PULSE 82
[2017-03-01] MEDS ORDERED: VANCOMYCIN 1 GM in NS 250 ML IVPB SCH (13:00)
[2017-03-01 14:00] VITALS: BP 150/68; RESP 17
[2017-03-01 20:00] VITALS: BP 151/71; RESP 18
--- NOTE | 2017-03-01 22:04 | CONS ---
Date/Time of Note Date/Time of Note DATE: 03/01/17 TIME: 22:04 Assessment/Plan Assessment/Plan Chief Complaint/Hosp Course SUBJECTIVE: The patient is awake, looks comfortable. No fevers overnight. VITAL SIGNS: Stable. MICROBIOLOGY: Nares swab negative. DIAGNOSTICS: Chest x-ray on admission revealed no pneumonia. INDWELLINGS: Right chest PermCath. Abx: Vanco PHYSICAL EXAMINATION: GENERAL: Chronically ill-appearing, elderly man in no distress. HEENT: Head atraumatic, normocephalic. Sclerae anicteric. Buccal mucosa dry. NECK: Supple. CHEST: Rise symmetrical. Breath sounds diminished to bases. HEART: S1, S2. ABDOMEN: Soft. Bowel tones present. EXTREMITIES: With right leg chronic wound. ASSESSMENT: 1. Right lower extremity chronic wound with previous culture grew oxacillin- sensitive Staphylococcus aureus. 2. End-stage renal disease. 3. Hypertension. 4. History of left hip open reduction and internal fixation. 5. History of schizoaffective disorder. PLAN: The patient remains stable. Continue Vanco for 2 weeks, continue topical Silverdine to wound DW staff Problems: Consultation Date/Type/Reason Admit Date/Time Feb 24, 2017 at 21:42 Type of Consultation: ID Exam/Review of Systems Vital Signs Vitals Vital Signs Date Time Temp Pulse Resp B/P Pulse Ox O2 Delivery O2 Flow Rate FiO2 03/01/17 14:00 97.7 77 17 150/68 97 02/28/17 06:00 Room Air Intake and Output 02/28/17 02/28/17 03/01/17 15:00 23:00 07:00 Intake Total 500 ml 180 ml 750 ml Output Total 3000 ml Balance -2500 ml 180 ml 750 ml Results Result Diagram: 02/28/17 0514 03/01/17 0555 Results 24 hrs Laboratory Tests Test 03/01/17 05:55 Sodium Level 143 Potassium Level 3.7 Chloride Level 102 Carbon Dioxide Level 26 Anion Gap 19 H Blood Urea Nitrogen 42 #H Creatinine 6.71 #H Glucose Level 102 Calcium Level 9.7 Phosphorus Level 3.4 Magnesium Level 2.1 Random Vancomycin Level 17.2 Medications Medications Current Medications Acetaminophen (Tylenol Tab) 650 mg Q4 PRN PO PAIN AND OR ELEVATED TEMP; Start 02/25/17 at 19:30 Ascorbic Acid (Vitamin C) 500 mg DAILY PO Last administered on 03/01/17 09:44 ; Admin Dose 500 MG; Start 02/26/17 at 09:00 Bisacodyl (Dulcolax Supp) 10 mg PRN PRN [place] CONSTIPATION; Start 02/25/17 at 19: 30 Carvedilol (Coreg) 6.25 mg BID PO Last administered on 03/01/17 21:56; Admin Dose 6.25 MG; Start 02/25/17 at 21:00 Clonidine (Catapres) 0.2 mg Q6 PRN PO ELEVATED BLOOD PRESSURE Last administered on 03/01/17 01:56; Admin Dose 0.2 MG; Start 02/25/17 at 19:30; Status Future hold Docusate Sodium (Colace) 200 mg Q24H PRN PO CONSTIPATION; Start 02/25/17 at 19 :30 Ferrous Sulfate (Ferrous Sulfate (Ec)) 325 mg DAILY PO Last administered on 09:45; Admin Dose 325 MG; Start 02/26/17 at 09:00 Lorazepam (Ativan) 0.5 mg Q8 PRN PO ANXIETY Last administered on 02/27/17 03: 07; Admin Dose 0.5 MG; Start 02/25/17 at 19:30 Multivit/Ca Carb/ B Cmplx/FA/Prenat (Mel-Laura) 1 tab DAILY PO Last administered on 03/01/17 09:44; Admin Dose 1 TAB; Start 02/26/17 at 09:00 Multivitamins Therapeutic (Theragran) 1 tab DAILY PO Last administered on 03/01 09:45; Admin Dose 1 TAB; Start 02/26/17 at 09:00 Pantoprazole (Protonix Tab) 40 mg DAILY PO Last administered on 03/01/17 09: 44; Admin Dose 40 MG; Start 02/26/17 at 09:00 Zinc Sulfate (Zinc Sulfate) 220 mg DAILY PO Last administered on 03/01/17 09: 45; Admin Dose 220 MG; Start 02/26/17 at 09:00 Diphenhydramine HCl (Benadryl) 25 mg Q6H PRN IV ITCHING Last administered on 06:40; Admin Dose 25 MG; Start 02/26/17 at 03:00 Hydralazine HCl (Apresoline) 5 mg Q6H PRN IV ELEVATED BLOOD PRESSURE Last administered on 02/28/17 02:31; Admin Dose 5 MG; Start 02/27/17 at 02:40 Amlodipine Besylate (Norvasc) 10 mg DAILY PO Last administered on 03/01/17 09 :44; Admin Dose 10 MG; Start 02/27/17 at 09:00 Heparin Sodium (Porcine) (Heparin (5000 Units/0.5 ml)) 5,000 unit BID SC Last administered on 03/01/17 21:57; Admin Dose 5,000 UNIT; Start 02/27/17 at 09: 00 Silver Sulfadiazine (Thermazene 1% 400 Gm) 1 applic BID TOP Last administered on 03/01/17 09:46; Admin Dose 1 APPLIC; Start 02/27/17 at 21:00 Nitroglycerin (Nitroglycerin 2% Oint) 1 inch Q6H PRN TD SBP ABOVE 160mmHg; Start 02/28/17 at 02:45 Lisinopril 40 mg 40 mg DAILY PO Last administered on 03/01/17 09:45; Admin Dose 40 MG; Start 03/01/17 at 09:00 Vancomycin HCl (Vancocin) 250 ml @ 125 mls/hr ONCE IVPB Last administered on 03/01/17 12:40; Admin Dose 125 MLS/HR; Start 03/01/17 at 13:00; Stop at 23:45 ERIC GARCIA NP Mar 01, 2017 22:04
--- NOTE | 2017-03-01 22:50 | DS ---
DATE OF ADMISSION: 02/24/2017 DATE OF DISCHARGE: HOSPITAL COURSE: This is an 71-year-old male with a past medical history of end-stage renal disease , history of schizoaffective disorder, history of dementia, history of recent left hip fracture, who presents to [facility] due to missing patient's hemodialysis. The patient, upon arrival, was noted to be hyperkalemic with potassium 7.5. The patient was admitted to telemetry. T he patient received daily dialysis until his potassium levels normalized. The patient was also seen by infectious disease for his lower extremity wounds and was resumed on vancomycin and topical care . The patient's other medical problems including hypertension have been improving after blood press ure medications were adjusted. The patient was also uremic and encephalopathic on admission, which improved after dialysis. Currently, at this time, the patient will be [facility] where he will continue IV antibiotics and continue wound care. At the time of disc harge, the patient is stable, in no acute distress. FINAL DIAGNOSES: 1. End-stage renal disease. 2. Hyperkalemia, resolved. 3. Uremia, resolved. 4. Anemia. 5. Mineral bone disorder. 6. Dementia. 7. Schizoaffective disorder. 8. Lower extremity wounds. 9. History of left hip arthroplasty. 10. Chronic pain syndrome. At time of discharge, the patient is stable, in no acute distress. Please note I spent over 40 minutes of time preparing the patient's discharge. Dictated By: CHELSI AGGARWAL/NTS Conf#: [id number] DID#: [id number] CC: NGHIA SEQUEIRA MD;*EndCC*
[2017-03-01] MEDS: LORAZEPAM 0.5 MG TAB PO PRN (23:45)
[2017-03-02] VITALS (11 sets, daily range): BP systolic 110–182; BP diastolic 58–79; PULSE 80–85; RESP 18–19
[2017-03-02] MEDS: hydrALAzine 20 MG INJ IV PRN (04:24)
[2017-03-02] MEDS: SEVELAMER 800 MG TAB PO SCH ×3 (07:35→17:02)
[2017-03-02] MEDS: CALCIUM ACETATE 667 MG CAP PO SCH ×3 (07:35→17:02)
[2017-03-02] MEDS: FERROUS SULFATE (EC) 325 MG TAB PO SCH ×2 (08:57→12:51)
[2017-03-02] MEDS: LISINOPRIL 20 MG TAB PO SCH (08:58)
[2017-03-02] MEDS: ASCORBIC ACID 500 MG TAB PO SCH (08:58)
[2017-03-02] MEDS: AMLODIPINE 10 MG TAB PO SCH (08:58)
[2017-03-02] MEDS: PANTOPRAZOLE (EC) 40 MG TAB PO SCH (08:58)
[2017-03-02] MEDS: MULTIVIT/CA CARB/B CMPLX/FA TAB PO SCH ×2 (08:58→12:52)
[2017-03-02] MEDS: MULTIVITAMINS THERAPEUTIC TAB PO SCH ×2 (08:58→12:51)
[2017-03-02] MEDS: ZINC SULFATE 220 MG CAP PO SCH ×2 (08:59→12:52)
[2017-03-02] MEDS: HEPARIN 5,000 UNIT/0.5 ML VIAL SC SCH (08:59)
[2017-03-02] MEDS: SILVER SULFADIAZINE 1% 400 GM CR TOP SCH (09:00)
--- NOTE | 2017-03-02 10:11 | PN ---
DATE: 03/02/2017 SUBJECTIVE: The patient is stable, currently receiving hemodialysis. No other events noted. OBJECTIVE: VITAL SIGNS: Blood pressure is 182/79, respirations 19, pulse 84, temperature 97.9. HEENT: Head is normocephalic. NECK: Supple. HEART: Regular rate. LUNGS: Show diminished breath sounds at base. ABDOMEN: Soft, nontender to palpation without rebound or guarding. EXTREMITIES: Negative for clubbing, cyanosis, edema. DERMATOLOGIC: No rashes. MUSCULOSKELETAL: No joint effusions. NEUROLOGIC: No change in exam. MEDICATIONS: Have been reviewed. LABORATORY DATA: Has been reviewed. ASSESSMENT AND PLAN: 1. End-stage renal disease. The patient is receiving hemodialysis. Continue. 2. Hyperkalemia, resolved. 3. Uremia, improved. 4. Anemia. Monitor hemoglobin and hematocrit levels. Continue Epogen as needed. 5. Mineral bone disorder. Monitor calcium and phosphorus levels. 6. Lower extremity wounds. Continue wound care. 7. Status post open reduction internal fixation of left hip. 8. Chronic pain syndrome. 9. Gastrointestinal and deep venous thrombosis prophylaxis. DISPOSITION: The patient is pending transfer back to senior care facility. Dictated By: CHELSI ASIF DO NR/NTS Conf#: [id number] DID#: [id number] CC: NGHIA SEQUEIRA MD;*EndCC*
[2017-03-02] MEDS: LORAZEPAM 0.5 MG TAB PO PRN (12:50)
--- NOTE | 2017-03-02 14:56 | CONS ---
Date/Time of Note Date/Time of Note DATE: 03/02/17 TIME: 14:56 Assessment/Plan Assessment/Plan Chief Complaint/Hosp Course SUBJECTIVE: The patient is awake, looks comfortable. No fevers overnight. VITAL SIGNS: Stable. MICROBIOLOGY: Nares swab negative. DIAGNOSTICS: Chest x-ray on admission revealed no pneumonia. INDWELLINGS: Right chest PermCath. Abx: Vanco PHYSICAL EXAMINATION: GENERAL: Chronically ill-appearing, elderly man in no distress. HEENT: Head atraumatic, normocephalic. Sclerae anicteric. Buccal mucosa dry. NECK: Supple. CHEST: Rise symmetrical. Breath sounds diminished to bases. HEART: S1, S2. ABDOMEN: Soft. Bowel tones present. EXTREMITIES: With right leg chronic wound. ASSESSMENT: 1. Right lower extremity chronic wound with previous culture grew oxacillin- sensitive Staphylococcus aureus. 2. End-stage renal disease. 3. Hypertension. 4. History of left hip open reduction and internal fixation. 5. History of schizoaffective disorder. PLAN: The patient remains stable. Continue Vanco for 2 weeks, continue topical Silverdine to wound, HD per renal DW staff Problems: Consultation Date/Type/Reason Admit Date/Time Feb 24, 2017 at 21:42 Type of Consultation: ID Exam/Review of Systems Vital Signs Vitals Vital Signs Date Time Temp Pulse Resp B/P Pulse Ox O2 Delivery O2 Flow Rate FiO2 03/02/17 10:10 98.2 85 18 117/60 98 02/28/17 06:00 Room Air Intake and Output 03/01/17 03/01/17 03/02/17 15:00 23:00 07:00 Intake Total 250 ml 850 ml 960 ml Balance 250 ml 850 ml 960 ml Results Result Diagram: 02/28/17 0514 03/01/17 0555 Results 24 hrs Laboratory Tests Test 03/02/17 07:05 Lab Scanned Report REFERENCE LAB Medications Medications Current Medications Acetaminophen (Tylenol Tab) 650 mg Q4 PRN PO PAIN AND OR ELEVATED TEMP; Start 02/25/17 at 19:30 Ascorbic Acid (Vitamin C) 500 mg DAILY PO Last administered on 03/01/17t 09:44 ; Admin Dose 500 MG; Start 02/26/17 at 09:00 Bisacodyl (Dulcolax Supp) 10 mg PRN PRN [place] CONSTIPATION; Start 02/25/17 at 19: 30 Carvedilol (Coreg) 6.25 mg BID PO Last administered on 03/01/17 21:56; Admin Dose 6.25 MG; Start 02/25/17 at 21:00 Clonidine (Catapres) 0.2 mg Q6 PRN PO ELEVATED BLOOD PRESSURE Last administered on 03/01/17 01:56; Admin Dose 0.2 MG; Start 02/25/17 at 19:30; Status Future hold Docusate Sodium (Colace) 200 mg Q24H PRN PO CONSTIPATION; Start 02/25/17 at 19 :30 Ferrous Sulfate (Ferrous Sulfate (Ec)) 325 mg DAILY PO Last administered on 12:51; Admin Dose 325 MG; Start 02/26/17 at 09:00 Lorazepam (Ativan) 0.5 mg Q8 PRN PO ANXIETY Last administered on 03/02/17 12: 50; Admin Dose 0.5 MG; Start 02/25/17 at 19:30 Multivit/Ca Carb/ B Cmplx/FA/Prenat (Mel-Laura) 1 tab DAILY PO Last administered on 03/02/17 12:52; Admin Dose 1 TAB; Start 02/26/17 at 09:00 Multivitamins Therapeutic (Theragran) 1 tab DAILY PO Last administered on 03/02 12:51; Admin Dose 1 TAB; Start 02/26/17 at 09:00 Pantoprazole (Protonix Tab) 40 mg DAILY PO Last administered on 03/01/17 09: 44; Admin Dose 40 MG; Start 02/26/17 at 09:00 Zinc Sulfate (Zinc Sulfate) 220 mg DAILY PO Last administered on 03/02/17 12: 52; Admin Dose 220 MG; Start 02/26/17 at 09:00 Diphenhydramine HCl (Benadryl) 25 mg Q6H PRN IV ITCHING Last administered on 06:40; Admin Dose 25 MG; Start 02/26/17 at 03:00 Hydralazine HCl (Apresoline) 5 mg Q6H PRN IV ELEVATED BLOOD PRESSURE Last administered on 03/02/17 04:24; Admin Dose 5 MG; Start 02/27/17 at 02:40 Amlodipine Besylate (Norvasc) 10 mg DAILY PO Last administered on 03/01/17 09 :44; Admin Dose 10 MG; Start 02/27/17 at 09:00 Heparin Sodium (Porcine) (Heparin (5000 Units/0.5 ml)) 5,000 unit BID SC Last administered on 03/01/17 09:47; Admin Dose 5,000 UNIT; Start 02/27/17 at 09: 00 Silver Sulfadiazine (Thermazene 1% 400 Gm) 1 applic BID TOP Last administered on 03/02/17 09:00; Admin Dose 1 APPLIC; Start 02/27/17 at 21:00 Nitroglycerin (Nitroglycerin 2% Oint) 1 inch Q6H PRN TD SBP ABOVE 160mmHg; Start 02/28/17 at 02:45 Lisinopril (Zestril) 40 mg DAILY PO Last administered on 03/01/17 09:45; Admin Dose 40 MG; Start 03/01/17 at 09:00 ERIC GARCIA NP Mar 02, 2017 14:56
== END 2017-03-02 18:44 | DRG 640 ==
LOC: E/R 17:55 → MS4 21:42 → E/R 02-25 17:40 → PP2 02-27 19:55
PROVIDERS: ADMIT Internal Medicine; ATTEND Internal Medicine
PROC: 5A1D70Z Performance of Urinary Filtration, Intermittent, Less than 6 Hours Per Day (ICD-10-PCS; principal; 2017-02-26)
DX: E87.5 Hyperkalemia (principal); N18.6 End stage renal disease; G93.40 Encephalopathy, unspecified; I12.0 Hypertensive chronic kidney disease with stage 5 chronic kidney disease or end stage renal disease; F03.90 Unspecified dementia, unspecified severity, without behavioral disturbance, psychotic disturbance, mood disturbance, and anxiety; L97.919 Non-pressure chronic ulcer of unspecified part of right lower leg with unspecified severity; E83.9 Disorder of mineral metabolism, unspecified; D64.9 Anemia, unspecified; Z99.2 Dependence on renal dialysis; F25.9 Schizoaffective disorder, unspecified; G89.29 Other chronic pain; I25.10 Atherosclerotic heart disease of native coronary artery without angina pectoris; Z86.718 Personal history of other venous thrombosis and embolism; Z91.15 Patient's noncompliance with renal dialysis
CPT/HCPCS: 36415; 71010; 80048; 80053; 80202; 82962; 83690; 83735; 84100; 84484; 85025; 87081; 90935; 93005; 94664; 96374; 96375; 96376; J0360; J0610; J1200; J1644; J1815; J2060; J3370